=== PATIENT | female | born 1965 | race Caucasian/White ===

== ENCOUNTER 2018-05-30 14:54 | Inpatient (IN) ==
[2018-05-30 17:26] LABS: Baso % (Auto) 0.1 % (0.0-2.0); Eos % (Auto) 0.1 % (0.0-4.0); Hematocrit 32.9 % (35.0-46.0); Lymph # (Auto) 0.9 th/mm3 (1.0-4.8); Lymph % (Auto) 9.2 % (9.0-44.0); Mean Corpuscular Hemoglobin 35.9 pg (27.0-34.0); Mean Corpuscular Volume 98.5 fL (80.0-100.0); Mean Platelet Volume 9.1 fL (7.0-11.0); Mono # (Auto) 0.9 th/mm3 (0.0-0.9); Mono % (Auto) 9.6 % (0.0-8.0); Neut # (Auto) 7.9 th/mm3 (1.8-7.7); Platelet Count 107 th/mm3 (150-450); Red Blood Count 3.34 mil/mm3 (4.00-5.30); Red Cell Distribution Width 14.5 % (11.6-17.2); White Blood Count 9.7 th/mm3 (4.0-11.0)
[2018-05-30 17:32] LABS: Mean Corpuscular HGB Conc 36.5 % (32.0-36.0)
[2018-05-30 17:40] LABS: Activated Partial Thrombo Time 20.4 sec (23.4-31.7); INR 1.1 Ratio; Prothrombin Time 10.7 sec (9.8-11.6)
[2018-05-30 17:44] LABS: Albumin 3.6 g/dL (3.4-5.0); Anion Gap 7 meq/L (5-15); Aspartate Aminotransferase 17 U/L (15-37); Blood Urea Nitrogen 30 mg/dL (7-18); Calcium 8.5 mg/dL (8.5-10.1); Chloride 106 meq/L (98-107); Glomerular Filtration Rate 32 mL/min (>89); Glucose,Random 115 mg/dL (74-106); Potassium 3.4 meq/L (3.5-5.1); Sodium 138 meq/L (136-145)
[2018-05-30 17:45] LABS: Alanine Aminotransferase 34 U/L (10-53)
[2018-05-30 17:47] LABS: Alkaline Phosphatase 85 U/L (45-117); Total Protein 6.9 g/dL (6.4-8.2)
--- NOTE | 2018-05-30 17:52 | ED ---
HPI General Chief complaint: Back Pain/Injury Stated complaint: Back Complaint Time Seen by Provider: 05/30/18 16:47 Source: patient Mode of arrival: ambulatory Limitations: no limitations History of Present Illness HPI narrative: Patient is a 52-year-old female presenting to the emergency department for evaluation of an abnormal MRI. Patient states she had an MRI performed on Wednesday which showed an L1 or L2 compression fracture. Patient reports that she currently has bladder cancer, she was diagnosed in July 2017. She had the tumors removed and initially it was thought that there was no metastasis. A few months later she started experiencing pain and similar symptoms as previous and was told that she had a recurrence of the bladder cancer with metastasis to the spine. She has had 8 out of 10 aching back pain that radiates down her right leg. She states that she was prescribed Percocet 10/325 but she only takes half a tablet because she does not want to get addicted. She denies any bladder or bowel incontinence, no saddle paresthesia, no weakness in her extremities. Symptom onset was gradual, symptoms are moderate. Patient denies any falls, injuries or trauma. She has no other complaints at this time. Onset (ago): month(s) Location: back Radiation: distal Severity: moderate Severity scale (1-10): 8 Quality: aching Pain Consistency: constant Relieving factors: medication Exacerbating factors: immobilization and movement Associated symptoms: Reports denies other symptoms Related Data Home Medications Medication Instructions Recorded Confirmed ciprofloxacin HCl 500 mg PO BID 05/30/18 05/30/18 dexamethasone 4 mg PO Q12H 05/30/18 05/30/18 famotidine 20 mg PO DAILY 05/30/18 05/30/18 oxycodone-acetaminophen 1 tab PO BID 05/30/18 05/30/18 Allergies Allergy/AdvReac Type Severity Reaction Status Date / Time No Known Allergies Allergy Verified 05/30/18 15:06 Review of Systems ROS: all other systems reviewed are negative [facility] Medical History Medical History Bladder cancer (Acute) Cancer of spinal column (Acute) H/O: stroke (Acute) HTN (hypertension) (Acute) Social History Social History Substance History: No History of Abuse Second Hand Smoke Exposure: No Smoking Status: Never smoker How Often Do You Have a Drink Containing Alcohol: Monthly or less Recent Travel in [facility] within the Last 8 Weeks: No Recent Out of Country Travel within the Last 8 Weeks: No Immunization History Tetanus Immunization: >5 Years Exam Narrative Exam Narrative: GENERAL: Well-developed, well-nourished, alert female. Presenting in no acute distress. SKIN: Focused skin assessment warm/dry. HEAD: Atraumatic. Normocephalic. EYES: Pupils equal and round. No scleral icterus. No injection or drainage. ENT: No nasal bleeding or discharge. Mucous membranes pink and moist. NECK: Trachea midline. No JVD. CARDIOVASCULAR: Regular rate and rhythm. No murmur appreciated. RESPIRATORY: No accessory muscle use. Clear to auscultation. Breath sounds equal bilaterally. GASTROINTESTINAL: Abdomen soft, non-tender, nondistended. Hepatic and splenic margins not palpable. MUSCULOSKELETAL: No obvious deformities. No clubbing. No cyanosis. No edema. Tenderness over lumbar spine, no step-off noted. NEUROLOGICAL: Awake and alert. No obvious cranial nerve deficits. Motor grossly within normal limits. Normal speech. PSYCHIATRIC: Appropriate mood and affect; insight and judgment normal. Course Initial Documented Vital Signs Temperature 98.8 F 05/30/18 15:01 Pulse Rate 102 H 05/30/18 15:01 Respiratory Rate 20 05/30/18 15:01 Blood Pressure 198/131 H 05/30/18 15:01 Pulse Oximetry 98 05/30/18 15:01 Last Documented Vital Signs Temperature 98.8 F 05/30/18 15:01 Pulse Rate 71 05/30/18 18:26 Respiratory Rate 18 05/30/18 18:26 Blood Pressure 173/109 H 05/30/18 18:26 Pulse Oximetry 97 05/30/18 18:26 Medical Decision Making MDM Narrative Medical decision making narrative: Patient is a 52-year-old female presenting with back pain secondary to metastatic disease. She has no focal deficits on exam. Will attempt to obtain records from [facility]. Will obtain a CT scan of the lumbar spine as well as basic labs now. Patient was given Percocet for pain. Labs reviewed, BUN and creatinine are elevated, no priors to compare to although patient reports history of renal insufficiency. CT scan of the lumbar spine shows lytic bone destruction of L2 with soft tissue mass, incidentally reported bilateral hydronephrosis with bilateral stent placement and a 5 mm calculus in the right renal pelvis. Discussed fracture with Dr. Ortiz who advised patient be admitted to medicine consult to him. Dr. Pearce accepted admission, urinalysis is ordered and pending. Admit orders placed. Patient was advised on findings and plan of care. Patient is agreeable, she is resting comfortably with her son at bedside. Medical records have been requested from [facility], they have not been obtained at this point. Medical Screen Exam Complete: Yes Emergency Medical Condition: Yes Differential Diagnosis Differential Diagnosis: Pathologic fracture versus increasing tumor burden versus metabolic abnormality versus neurologic deficit versus other Lab Data Lab results reviewed: Yes I reviewed the patient's lab results. Result diagrams: 05/30/18 16:52 05/30/18 16:52 Lab Results 05/30/18 05/30/18 05/30/18 Range/Units 16:52 16:52 16:52 WBC 9.7 (4.0-11.0) th/mm3 RBC 3.34 L (4.00-5.30) mil/mm3 Hgb 12.0 (11.6-15.3) gm/dL Hct 32.9 L (35.0-46.0) % MCV 98.5 (80.0-100.0) fL MCH 35.9 H (27.0-34.0) pg MCHC 36.5 H (32.0-36.0) % RDW 14.5 (11.6-17.2) % Plt Count 107 L (150-450) th/mm3 MPV 9.1 (7.0-11.0) fL Prelim Diff (Auto) Slide review pending Neut % (Auto) 81.0 H (16.0-70.0) % Lymph % (Auto) 9.2 (9.0-44.0) % [place] % (Auto) 9.6 H (0.0-8.0) % Eos % (Auto) 0.1 (0.0-4.0) % Baso % (Auto) 0.1 (0.0-2.0) % Neut # (Auto) 7.9 H (1.8-7.7) th/mm3 Lymph # (Auto) 0.9 L (1.0-4.8) th/mm3 [place] # (Auto) 0.9 (0.0-0.9) th/mm3 Eos # (Auto) 0.0 (0.0-0.4) th/mm3 Baso # (Auto) 0.0 (0.0-0.2) th/mm3 WBC Differential Manual diff final Seg Neuts % (Manual) 50 (16-70) % Band Neuts % (Manual) 16 H (0-6) % Lymphocytes % (Manual) 18 (9-44) % Monocytes % (Manual) 9 H (0-8) % Metamyelocytes % (Man) 4 H (0-1) % Myelocytes % (Man) 3 H (0-0) % Abs Neuts (Manual) 7.1 (1.8-7.7) th/mm3 Nucleated RBCs/100 WBC 2 H (0-0) /100 WBC Differential Comment . Dohle Bodies Present H (None) Platelet Estimate Low L (Normal) Platelet Morphology Normal (Normal) Polychromasia 2.4 H (0.0-1.9) % Tear Drop Cells 1+ H (None) PT 10.7 (9.8-11.6) sec INR 1.1 Ratio APTT 20.4 L (23.4-31.7) sec Sodium 138 (136-145) meq/L Potassium 3.4 L (3.5-5.1) meq/L Chloride 106 (98-107) meq/L Carbon Dioxide 25.0 (21.0-32.0) meq/L Anion Gap 7 (5-15) meq/L BUN 30 H (7-18) mg/dL Creatinine 1.67 H (0.50-1.00) mg/dL Estimated GFR 32 L (>89) mL/min Random Glucose 115 H (74-106) mg/dL Calcium 8.5 (8.5-10.1) mg/dL Total Bilirubin 0.3 (0.2-1.0) mg/dL AST 17 (15-37) U/L ALT 34 (10-53) U/L Alkaline Phosphatase 85 (45-117) U/L Total Protein 6.9 (6.4-8.2) g/dL Albumin 3.6 (3.4-5.0) g/dL Imaging Data Radiologist's impression: Lumbar Spine CT 05/30/18 17:06 CONCLUSION: 1. Extensive lytic bone destruction of L2 with soft tissue mass, spinal stenosis and pathologic fracture as above. Primary differential diagnosis is myeloma versus metastatic disease from reported history of bladder cancer. 2. Moderate degenerative changes as above. Discharge Plan Discharge Disposition Patient Disposition: ED Admit(ED Internal Use Only) Discharge Condition Condition: Stable Discharge Order Discharge Orders: ED Use Only Admit Order (Routine); Ordered 05/30/18 Ordered By: Rowan Guerra Discharge Details Diagnosis: Mass of spine, Bladder cancer, Renal insufficiency, Pathologic compression fracture of lumbar vertebra Physicians Team ED Provider: Brennan Young ED Midlevel Provider: Rowan Guerra Primary Care Provider: UNKNOWN, Rxs /Orders / Referrals /Forms Prescriptions: No Action ciprofloxacin HCl 500 mg Tablet 500 mg PO BID RF: 0 famotidine 20 mg Tablet 20 mg PO DAILY RF: 0 oxycodone-acetaminophen 10-325 mg Tablet 1 tab PO BID RF: 0 dexamethasone 4 mg Tablet 4 mg PO Q12H RF: 0 Status ED Status: Admitted Patient
[2018-05-30 18:00] LABS: Lymphocytes 18 % (9-44); Metamyelocytes 4 % (0-1); Monocytes 9 % (0-8); Myelocytes 3 % (0-0); Tallied Nucleated RBC 2 (0-0)
[2018-05-30 18:01] LABS: Polychromasia 2.4 % (0.0-1.9)
[2018-05-30 18:02] LABS: Dohle Bodies Present
[2018-05-30 18:03] LABS: Platelet Morphology Normal (Normal); Tear Drop Cells 1+
--- NOTE | 2018-05-30 18:16 | CT ---
EXAM DATE: 05/30/2018 6:05 PM EST AGE/SEX: 52 years / Female INDICATIONS: Fractured seen on recent Mri, done at [facility], back pain,L2 tumor. CLINICAL DATA: This is the patient's initial encounter. Patient reports that signs and symptoms have been present for 1 day and indicates a pain score of 6/10. MEDICAL/SURGICAL HISTORY: Carcinoma, bladder. Hypertension. SPINAL COLUMN STROKE mets to l2 None. RADIATION DOSE: 34.36 CTDI (mGy) COMPARISON: No prior exams available for comparison. TECHNIQUE: Contiguous axial images were acquired with a multirow detector CT scanner without contras t. Multiplanar reconstructions in the sagittal and coronal plane were also performed. Using automate d exposure control and adjustment of the mA and/or kV according to patient size, radiation dose was k ept as low as reasonably achievable to obtain optimal diagnostic quality images. DICOM format image data is available electronically for review and comparison. FINDINGS: Incidental note is made of bilateral hydronephrosis with bilateral ureteral stents present. 5 mm calc ulus present in right renal pelvis. There is extensive lytic bone destruction at L2 involving the vertebral body predominantly on the rig ht side extending through the right pedicle to the posterior elements with an associated soft tissue mass that measures up to 4.9 cm in diameter. Differential diagnosis includes myeloma and metastatic d isease. There is suspected severe canal stenosis at this level. There is an associated pathologic com pression fracture through the right posterior aspect of the L2 vertebral body. No other pathologic fractures are identified. At [id number] there is no significant canal or foraminal stenosis. At L2-3 there is a mild disc bulge with mild lateral recess encroachment. At L3-4 there is a broad-based disc bulge without stenosis. At L4-5 there is a posterior disc osteophyte complex and facet arthropathy with mild lateral recess a nd foraminal encroachment bilaterally. At L5-S1 there is a broad-based disc protrusion and facet arthropathy without significant canal steno sis. CONCLUSION: 1. Extensive lytic bone destruction of L2 with soft tissue mass, spinal stenosis and pathologic frac ture as above. Primary differential diagnosis is myeloma versus metastatic disease from reported hist ory of bladder cancer. 2. Moderate degenerative changes as above. Electronically signed by: Polo Menjivar MD 05/30/2018 6:15 PM EST
[2018-05-30] MEDS ORDERED: Acetaminophen 325 MG Tablet PO PRN ×2 (18:58)
[2018-05-30] MEDS ORDERED: Morphine Inj 4 MG/ML Vial IV.PUSH PRN (18:58)
[2018-05-30] MEDS ORDERED: oxyCODONE/Acetaminophen 10/325 Tablet PO PRN (18:58)
[2018-05-30] MEDS ORDERED: Naloxone Inj 0.4 MG/ML Vial IV.PUSH PRN (18:58)
[2018-05-30] MEDS ORDERED: Bisacodyl 10 MG Supp RECTAL PRN (18:58)
[2018-05-30 19:22] LABS: Bacteria,Urine Few /hpf; Bilirubin,Urine Negative (Negative); Clarity,Urine Cloudy (Clear); Color,Urine Red (Yellw/Straw); Glucose,Urine (UA) 50 mg/dL (Negative); Leukocyte Esterase,Urine Negative (Negative); Mucus,Urine Few /lpf (Occasional); Nitrite,Urine Negative (Negative); Specific Gravity,Urine 1.014 (1.002-1.035); Squamous Epithelial Cell,Urine 6 /hpf (0-5)
[2018-05-30] MEDS ORDERED: Ciprofloxacin 500 MG Tablet PO SCH (22:45)
[2018-05-30] MEDS: Senna/Docusate Sodium 8.6/50 MG Tablet PO SCH (22:50)
[2018-05-30] MEDS ORDERED: Famotidine PF Inj 20 MG/2 ML Vial IV.PUSH SCH (23:00)
--- NOTE | 2018-05-30 23:14 | P.HPIM ---
History of Present Illness Service: [facility] . Primary Care Physician: UNKNOWN Chief Complaint: Back Pain History of Present Illness: Mrs. Ayala is a 52 year-old female with a history of left parietal CVA (), bladder cancer diagnosed in July 2017 and followed at [facility] by Dr. Sen, hydronephrosis s/p bilateral stent placement by Dr. Hannah, hypertension, and intermittent GERD who presented to the emergency room complaining of back pain and outpatient MRI demonstrating compression fracture. The patient is seen in her hospital room reports having back pain of 3-4 out of 10 radiating from her back down her anterior right thigh. She states that her pain is worse with immobility. Pain is relieved with Decadron. However, she notices these to emotional lability with Decadron 4 mg and she refuses to take more than 2 mg of decadron. She also complains of reflux with the sensation of feeling like something is "stuck" in the left side of her throat. She reports that this symptom has been present only for about 12 hours. She also complains that a couple of days ago, she had muscle spasm sensation in her legs that seemed to radiate up her chest wall and was relieved with relaxation. She denies any recent fever, chills, or shortness of breath. Inpatient Certification: I certify that the inpatient services were ordered in accordance with Medicare regulations governing the order. This includes certification that hospital inpatient services are reasonable and necessary and in the case of services not specified as inpatient-only under 42 CFR 419.22(n), that they are appropriately provided as inpatient services in accordance to with the 2-midnight benchmark under 43 CFR 412.3(e) Estimated Total Length of Stay (Days): 3 Plans for Post Hospital Care: Not yet determined Review of Systems All other systems reviewed negative except as stated in HPI PMFSH - History History Provided By: Patient - Medical History Medical History: Medical History (Last Updated 05/31/18 @ 02:14 by JORGE L Álvarez) Bladder cancer HTN (hypertension) History of CVA (cerebrovascular accident) Metastasis to spinal column - Surgical History Surgical History: Surgical History (Last Updated 05/31/18 @ 00:50 by JORGE L Álvarez) History of History of biopsy History of cystoscopy Hx of cholecystectomy Status post placement of ureteral stent - Family History Family History: Family History (Last Updated 05/31/18 @ 00:52 by JORGE L Álvarez) Brother Colorectal cancer Sister Colorectal cancer Father Family history of coronary artery disease - Social History I have reviewed the patient's Social History: Yes - Tobacco History Second Hand Smoke Exposure: No Smoking Status: Never smoker - Alcohol History How Often Do You Have a Drink Containing Alcohol: Monthly or less - Substance Use History Substance History: No History of Abuse - Travel History Recent Travel in the [place] Within the Last 8 Weeks: No Recent Travel Out of the Country Within the Last 8 Weeks: No - Immunization History Tetanus Immunization: >5 Years Medications and Allergies Active Medications: Active Medications Acetaminophen (Tylenol) 650 mg PO Q4H PRN PRN Reason: Temp > 100.4 Acetaminophen (Tylenol) 650 mg PO Q6H PRN PRN Reason: PAIN SCALE 1 TO 2 Al Hydroxide/Mg Hydroxide (Milk Of Magnesia Liq) 30 ml PO Q12H PRN PRN Reason: Mild Constipation Bisacodyl (Dulcolax Supp) 10 mg RECTAL DAILY PRN PRN Reason: SEVERE CONSITIPATION Ciprofloxacin HCl (Cipro) 500 mg PO BID AMAIRANI Dexamethasone Sodium Phosphate (Decadron Inj) 2 mg IV.PUSH Q6HR AMAIRANI Famotidine (Pepcid Pf Inj) 20 mg IV.PUSH Q12HR AMAIRANI Lactulose (Lactulose Liq) 30 ml PO DAILY PRN PRN Reason: SEVERE CONSITIPATION Morphine Sulfate (Morphine Inj) 4 mg IV.PUSH Q3H PRN PRN Reason: BREAKTHROUGH PAIN Naloxone HCl (Narcan Inj) 0.4 mg IV.PUSH UNSCH PRN PRN Reason: SEE LABEL COMMENTS Ondansetron HCl (Zofran Inj) 4 mg IV.PUSH Q6H PRN PRN Reason: NAUSEA OR VOMITING Oxycodone/Acetaminophen (Percocet 10/325 Mg) 1 tab PO Q6H PRN PRN Reason: PAIN SCALE 6 TO 10 Oxycodone/Acetaminophen (Percocet 5/325 Mg) 1 tab PO Q6H PRN PRN Reason: PAIN SCALE 3 TO 5 Senna/Docusate Sodium (Corine-Colace) 1 tab PO BID [facility] Last Admin: 05/30/18 22:50 Dose: 1 tab Sennosides (Senokot) 17.2 mg PO Q12H PRN PRN Reason: Moderate Constipation Sodium Chloride (Ns Flush) 2 ml IV.FLUSH BID AMAIRANI Last Admin: 05/30/18 22:50 Dose: 2 ml Sodium Chloride (Ns Flush) 2 ml IV.FLUSH UNSCH PRN PRN Reason: FLUSH AFTER USING IV ACCESS Allergies Allergy/AdvReac Type Severity Reaction Status Date / Time No Known Allergies Allergy Verified 05/30/18 15:06 Home Medications Medication Instructions Recorded Confirmed Type ciprofloxacin HCl 500 mg PO BID 05/30/18 05/30/18 History dexamethasone 4 mg PO Q12H 05/30/18 05/30/18 History famotidine 20 mg PO DAILY 05/30/18 05/30/18 History oxycodone-acetaminophen 1 tab PO BID 05/30/18 05/30/18 History Exam Vital signs: Vital Signs 05/30/18 15:01 05/30/18 16:41 05/30/18 18:26 Temperature 98.8 F Pulse Rate 102 H 86 71 Respiratory Rate 20 20 18 Blood Pressure 198/131 H 162/108 H 173/109 H Pulse Oximetry 98 98 97 05/30/18 19:31 05/30/18 20:00 Temperature 98.2 F Pulse Rate 82 72 Respiratory Rate 18 20 Blood Pressure 158/101 H 156/92 H Pulse Oximetry 100 97 Intake & Output 05/30/18 05/30/18 05/31/18 06:59 18:59 06:59 Weight 90.265 kg Narrative: GENERAL: This is a well-nourished, well-developed patient, in no apparent distress. SKIN: No rashes, ecchymoses or lesions. Cool and dry. HEAD: Atraumatic. Normocephalic. EYES: No scleral icterus. No injection or drainage. ENT: Nose without bleeding, purulent drainage. NECK: Trachea midline. No JVD or lymphadenopathy. CARDIOVASCULAR: Regular rate and rhythm without murmurs, gallops, or rubs. RESPIRATORY: Clear to auscultation. Breath sounds equal bilaterally. No wheezes , rales, or rhonchi. GASTROINTESTINAL: Abdomen soft, non-tender, nondistended. No guarding. MUSCULOSKELETAL: Extremities without clubbing, cyanosis. No calf tenderness. Lumbar paraspinal tenderness with palpation. NEUROLOGICAL: Awake and alert. Motor and sensory grossly within normal limits. Normal speech. . Results - Labs CBC & Chem 7: 05/30/18 16:52 05/30/18 16:52 Labs: Short CBC 05/30/18 Range/Units 16:52 WBC 9.7 (4.0-11.0) th/mm3 Hgb 12.0 (11.6-15.3) gm/dL Hct 32.9 L (35.0-46.0) % Plt Count 107 L (150-450) th/mm3 BMP 05/30/18 16:52 Sodium 138 Potassium 3.4 L Chloride 106 Carbon Dioxide 25.0 BUN 30 H Creatinine 1.67 H Calcium 8.5 Liver Function 05/30/18 Range/Units 16:52 Total Bilirubin 0.3 (0.2-1.0) mg/dL AST 17 (15-37) U/L ALT 34 (10-53) U/L Alkaline Phosphatase 85 (45-117) U/L Albumin 3.6 (3.4-5.0) g/dL Urine 05/30/18 Range/Units 18:37 Urine Color Red (Yellw/Straw) Urine Clarity Cloudy H (Clear) Urine pH 6.0 (5.0-8.5) Ur Specific [place] 1.014 (1.002-1.035) Urine Protein 100 H (Neg-Trace) mg/dL Urine Glucose (UA) 50 (Negative) mg/dL - Imaging Impressions Lumbar Spine CT 05/30/18 17:06 CONCLUSION: 1. Extensive lytic bone destruction of L2 with soft tissue mass, spinal stenosis and pathologic fracture as above. Primary differential diagnosis is myeloma versus metastatic disease from reported history of bladder cancer. 2. Moderate degenerative changes as above. Caprini VTE Risk Assessment Caprini VTE Risk Assessment: Moderate/High Risk (score >= 2) Caprini Risk Assessment Model: Point Value = 1 Point Value = 2 Point Value = 3 Point Value = 5 Age 41-60 Minor surgery BMI > 25 kg/m2 Swollen legs Varicose veins or History of unexplained or recurrent spontaneous Oral contraceptives or hormone replacement Sepsis (< 1 month) Serious lung disease, including pneumonia (< 1 month) Abnormal pulmonary function Acute myocardial infarction Congestive heart failure (< 1 month) History of inflammatory bowel disease Medical patient at bed rest Age 61-74 Arthroscopic surgery Major open surgery (> 45 min) Laparoscopic surgery (> 45 min) Malignancy Confined to bed (> 72 hours) Immobilizing plaster cast Central venous access Age >= 75 History of VTE Family history of VTE Factor V Leiden Prothrombin [id number] Lupus anticoagulant Anticardiolipin antibodies Elevated serum homocysteine Heparin-induced thrombocytopenia Other congenital or acquired thrombophilia Stroke (< 1 month) Elective arthroplasty Hip, pelvis, or leg fracture Acute spinal cord injury (< 1 month) Prophylaxis Regimen: Total Risk Factor Score Risk Level Prophylaxis Regimen 0-1 Low Early ambulation 2 Moderate Order ONE of the following: *Sequential Compression Device (SCD) *Heparin 5000 units SQ BID 3-4 Higher Order ONE of the following medications: *Heparin 5000 units SQ TID *Enoxaparin/Lovenox 40 mg SQ daily (WT < 150 kg, CrCl > 30 mL/min) *Enoxaparin/Lovenox 30 mg SQ daily (WT < 150 kg, CrCl > 10-29 mL/min) *Enoxaparin/Lovenox 30 mg SQ BID (WT < 150 kg, CrCl > 30 mL/min) AND/OR *Sequential Compression Device (SCD) 5 or more Highest Order ONE of the following medications: *Heparin 5000 units SQ TID (Preferred with Epidurals) *Enoxaparin/Lovenox 40 mg SQ daily (WT < 150 kg, CrCl > 30 mL/min) *Enoxaparin/Lovenox 30 mg SQ daily (WT < 150 kg, CrCl > 10-29 mL/min) *Enoxaparin/Lovenox 30 mg SQ BID (WT < 150 kg, CrCl > 30 mL/min) AND *Sequential Compression Device (SCD) Assessment and Plan - Plan Mrs. Ayala is a 52 year-old female with a history of left parietal CVA (), bladder cancer diagnosed in July 2017 and followed at [facility] by Dr. Sen, hydronephrosis s/p bilateral stent placement by Dr. Hannah, hypertension, and intermittent GERD who presented to the emergency room complaining of back pain and outpatient MRI demonstrating compression fracture. Pathologic compression fracture, L2 -MRI at [facility] showed interval increase in size of enhancing destructive metastasis centered within the posterior L2 vertebral body and right pedicle since 04/13/2018 lumbar spine MRI -superimposed newly appearing pathological compression fracture of L2. Posterior bulging of the metastasis and extraosseous disease extension into the ventral and right lateral epidural spaces at L2 contributing to worsened moderate spinal canal stenosis. Effacement of the right subarticular recess with compression of the right L2 nerve root. There was also extraosseous extension of the pathologic soft tissue into the right paravertebral soft tissues at the L2 level with surrounding edema. Pathological soft tissue extends into the L2-L3 neural foramen with associated moderate right neural foraminal stenosis and abutment/ partial compression of the right foraminal L2 nerve root. -Consult neurosurgery-Case discussed by ER provider with Dr. Ortiz -N.p.o. after midnight except for meds -Dexamethasone 2 mg IV every 6 hours (patient refusing 4 mg dosing) -Percocet as needed for pain with morphine IV for breakthrough pain Bladder Cancer - follows with Dr. Sen at [facility] - treated with chemo and radiation x 1 treatment Bilateral hydronephrosis 5 mm calculus and right renal pelvis Bilateral ureteral stents -Consult to urology for evaluation of hydronephrosis despite ureteral stenting -Patient sees Dr. Hannah at [facility] -Urinalysis minimally suggestive of UTI with culture indicated -we will continue patient on Cipro for now -await urine culture and adjust treatment as needed Hypokalemia -Replaced p.o. -Repeat labs in a.m. and follow results-further replace potassium as needed Acute on chronic renal insufficiency- suspect secondary to chemotherapy and/or obstructive uropathy and/or possible UTI- no labs from before 05/30/18 and after 08/10/11 to compare -BUN 30, creatinine 1.67, estimated GFR 32 -NS at 100 cc/hr -Repeat labs in a.m. and follow results Hypertension -Clonidine 0.1 mg every 6 hours as needed systolic blood pressure greater than 160 or diastolic blood pressure greater than 100 of heart rate is greater than 60 -Monitor blood pressure trends and adjust treatments as indicated Thrombocytopenia- likely secondary to recent chemotherapy - platelet count 107,000 - repeat CBC in a.m. follow results DVT prophylaxis -SCDs -chemoprophylaxis not recommended until neurosurgical and urology evaluations are complete secondary to possible surgery Discussed Condition With: Patient, patient's , and Dr. Tomlinson .
[2018-05-31] MEDS ORDERED: Sod Chloride 0.9% Inj 1,000 ML IV.CONT SCH (02:15)
[2018-05-31] MEDS: Famotidine PF Inj 20 MG/2 ML Vial IV.PUSH SCH ×2 (06:20→18:10)
[2018-05-31] MEDS: Sod Chloride 0.9% Inj 1,000 ML IV.CONT SCH ×2 (06:21→16:22)
[2018-05-31] MEDS: Ciprofloxacin 500 MG Tablet PO SCH ×2 (06:21→18:09)
[2018-05-31 07:57] LABS: Baso % (Auto) 0.1 % (0.0-2.0); Eos # (Auto) 0.1 th/mm3 (0.0-0.4); Eos % (Auto) 0.8 % (0.0-4.0); Hematocrit 30.9 % (35.0-46.0); Lymph # (Auto) 1.4 th/mm3 (1.0-4.8); Lymph % (Auto) 16.4 % (9.0-44.0); Mean Corpuscular HGB Conc 35.7 % (32.0-36.0); Mean Corpuscular Hemoglobin 35.1 pg (27.0-34.0); Mean Corpuscular Volume 98.4 fL (80.0-100.0); Mean Platelet Volume 8.9 fL (7.0-11.0); Mono # (Auto) 0.9 th/mm3 (0.0-0.9); Mono % (Auto) 10.9 % (0.0-8.0); Neut % (Auto) 71.8 % (16.0-70.0); Platelet Count 101 th/mm3 (150-450); Red Blood Count 3.14 mil/mm3 (4.00-5.30); Red Cell Distribution Width 14.5 % (11.6-17.2); White Blood Count 8.3 th/mm3 (4.0-11.0)
[2018-05-31 08:28] LABS: Calcium 8.6 mg/dL (8.5-10.1); Carbon Dioxide 23.4 meq/L (21.0-32.0); Potassium 3.8 meq/L (3.5-5.1)
[2018-05-31 08:32] LABS: Eosinophils 2 % (0-4); Lymphocytes 15 % (9-44); Metamyelocytes 1 % (0-1); Monocytes 8 % (0-8); Myelocytes 4 % (0-0)
[2018-05-31 08:33] LABS: Platelet Morphology Normal (Normal); Tear Drop Cells 1+; Toxic Granulation 1+
--- NOTE | 2018-05-31 09:24 | P.CONNS ---
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 Sen, hydronephrosis s/p bilateral stent placement by Dr. Hannah, arterial hypertension, and GERD who presented to the emergency room complaining of back pain and outpatient MRI demonstrating compression fracture. She reports having back pain of 3-4 out of 10 radiating from her back down her anterior right thigh. She states that her pain is worse with mobility. Her pain is relieved with Decadron. However, she notices these to emotional lability with Decadron 4 mg and she refuses to take more than 2 mg of decadron. She also complains of reflux with the sensation of feeling like something is "stuck" in the left side of her throat. She reports that this symptom has been present only for about 12 hours. She also complains that a couple of days ago, she had muscle spasm sensation in her legs that seemed to radiate up her chest wall and was relieved with relaxation. She denies any recent fever, chills, or shortness of breath. CT lumbar spine showed evidence of metastatic disease. neurosurgery consultation has been requested . [facility] - History History Provided By: Patient - Medical History Medical History: Medical History (Last Updated 05/31/18 @ 02:14 by JORGE L Álvarez) Bladder cancer HTN (hypertension) History of CVA (cerebrovascular accident) Metastasis to spinal column - Surgical History Surgical History: Surgical History (Last Updated 05/31/18 @ 00:50 by JORGE L Álvarez) History of History of biopsy History of cystoscopy Hx of cholecystectomy Status post placement of ureteral stent - Family History Family History: Family History (Last Updated 05/31/18 @ 00:52 by JORGE L Álvarez) Brother Colorectal cancer Sister Colorectal cancer Father Family history of coronary artery disease - Tobacco History Second Hand Smoke Exposure: No Tobacco Use In Past 30 Days: No Smoking Status: Former smoker Tobacco Type: Cigarettes - Alcohol History How Often Do You Have a Drink Containing Alcohol: Monthly or less - Substance Use History Substance History: No History of Abuse - Travel History Recent Travel in the [place] Within the Last 8 Weeks: No Recent Travel Out of the Country Within the Last 8 Weeks: No - Immunization History Tetanus Immunization: >5 Years Hx Influenza Vaccine This Season: Yes Medications and Allergies Active Medications: Active Medications Acetaminophen (Tylenol) 650 mg PO Q4H PRN PRN Reason: Temp > 100.4 Acetaminophen (Tylenol) 650 mg PO Q6H PRN PRN Reason: PAIN SCALE 1 TO 2 Al Hydroxide/Mg Hydroxide (Milk Of Magnesia Liq) 30 ml PO Q12H PRN PRN Reason: Mild Constipation Bisacodyl (Dulcolax Supp) 10 mg RECTAL DAILY PRN PRN Reason: SEVERE CONSITIPATION Ciprofloxacin HCl (Cipro) 500 mg PO BID@0600,1800 [facility] Last Admin: 05/31/18 06:21 Dose: 500 mg Clonidine HCl (Catapres) 0.1 mg PO Q6H PRN PRN Reason: SBP>160 and/or DBP>100; HR>60 Dexamethasone Sodium Phosphate (Decadron Inj) 2 mg IV.PUSH Q6H [facility] Last Admin: 05/31/18 06:20 Dose: 2 mg Famotidine (Pepcid Pf Inj) 20 mg IV.PUSH Q12H [facility] Last Admin: 05/31/18 06:20 Dose: 20 mg Sodium Chloride (Ns Inj) 1,000 mls @ 100 mls/hr IV.CONT .Q10H [facility] Last Admin: 05/31/18 06:21 Dose: 100 mls/hr Lactulose (Lactulose Liq) 30 ml PO DAILY PRN PRN Reason: SEVERE CONSITIPATION Morphine Sulfate (Morphine Inj) 4 mg IV.PUSH Q3H PRN PRN Reason: BREAKTHROUGH PAIN Naloxone HCl (Narcan Inj) 0.4 mg IV.PUSH UNSCH PRN PRN Reason: SEE LABEL COMMENTS Ondansetron HCl (Zofran Inj) 4 mg IV.PUSH Q6H PRN PRN Reason: NAUSEA OR VOMITING Oxycodone/Acetaminophen (Percocet 10/325 Mg) 1 tab PO Q6H PRN PRN Reason: PAIN SCALE 6 TO 10 Oxycodone/Acetaminophen (Percocet 5/325 Mg) 1 tab PO Q6H PRN PRN Reason: PAIN SCALE 3 TO 5 Last Admin: 05/31/18 06:26 Dose: 1 tab Senna/Docusate Sodium (Corine-Colace) 1 tab PO BID [facility] Last Admin: 05/30/18 22:50 Dose: 1 tab Sennosides (Senokot) 17.2 mg PO Q12H PRN PRN Reason: Moderate Constipation Sodium Chloride (Ns Flush) 2 ml IV.FLUSH BID [facility] Last Admin: 05/30/18 22:50 Dose: 2 ml Sodium Chloride (Ns Flush) 2 ml IV.FLUSH UNSCH PRN PRN Reason: FLUSH AFTER USING IV ACCESS Allergies Allergy/AdvReac Type Severity Reaction Status Date / Time No Known Allergies Allergy Verified 05/30/18 15:06 Home Medications Medication Instructions Recorded Confirmed Type ciprofloxacin HCl 500 mg PO BID 05/30/18 05/30/18 History dexamethasone 4 mg PO Q12H 05/30/18 05/30/18 History famotidine 20 mg PO DAILY 05/30/18 05/30/18 History oxycodone-acetaminophen 1 tab PO BID 05/30/18 05/30/18 History Exam Vital signs: Vital Signs 05/30/18 15:01 05/30/18 16:41 05/30/18 18:26 Temperature 98.8 F Pulse Rate 102 H 86 71 Respiratory Rate 20 20 18 Blood Pressure 198/131 H 162/108 H 173/109 H Pulse Oximetry 98 98 97 05/30/18 19:31 05/30/18 20:00 05/31/18 00:00 Temperature 98.2 F 98.0 F Pulse Rate 82 72 78 Respiratory Rate 18 20 20 Blood Pressure 158/101 H 156/92 H 148/90 H Pulse Oximetry 100 97 99 05/31/18 04:00 05/31/18 07:37 Temperature 98.4 F 98.4 F Pulse Rate 72 80 Respiratory Rate 20 16 Blood Pressure 164/88 H 141/84 H Pulse Oximetry 97 96 Intake & Output 05/30/18 05/31/18 05/31/18 18:59 06:59 18:59 Output Total 3 / 3 Balance -3 / -3 Weight 90.265 kg 0 g Output: Urine 3 / 3 Narrative: The patient is alert, awake. Comfortable, in no acute distress. Speech is fluent. Cranial nerve examination: pupils to be equal, round and reactive to light. Extra-ocular movements are intact. Facial motor and sensory function are normal and symmetrical. Gross hearing appears intact. Sternocleidomastoid and trapezius muscles are symmetrical. Other cranial nerves are intact. Neck is soft and supple with a good range of motion without pain. Muscle strength is normal in all muscle groups of both upper extremities. Lower extremities there is give away due to pain, 3/5 right iliopsoas with 4/5 on the left side, 4+/5 tibialis anterior and extensor halicus longus, 5/5 plantar flexion Sensory examination is intact to light touch and pin prick in both upper extremities, decreased in a L3, L4, L5 right dermatomal distribution Deep tendon reflexes are symmetrical in both upper and lower extremities. There is a bilateral plantar flexion response. Cerebellar examination is unremarkable, without deficits. Lungs are clear Heart regular rhythm is regular rate Skin warm and dry Results - Laboratory Findings CBC and BMP: 06/03/18 21:28 06/03/18 21:28 Abnormal lab findings: Abnormal Labs 05/30/18 05/30/18 05/30/18 16:52 16:52 16:52 RBC 3.34 L Hgb Hct 32.9 L MCH 35.9 H MCHC 36.5 H Plt Count 107 L Neut % (Auto) 81.0 H [place] % (Auto) 9.6 H Neut # (Auto) 7.9 H Lymph # (Auto) 0.9 L Band Neuts % (Manual) 16 H Monocytes % (Manual) 9 H Metamyelocytes % (Man) 4 H Myelocytes % (Man) 3 H Nucleated RBCs/100 WBC 2 H Toxic Granulation Dohle Bodies Present H Platelet Estimate Low L Polychromasia 2.4 H Tear Drop Cells 1+ H APTT 20.4 L Potassium 3.4 L BUN 30 H Creatinine 1.67 H Estimated GFR 32 L Random Glucose 115 H Urine Clarity Urine Protein Urine Occult Blood Urine Bacteria Urine Mucus 05/30/18 05/31/18 05/31/18 18:37 07:36 07:36 RBC 3.14 L Hgb 11.0 L Hct 30.9 L MCH 35.1 H MCHC Plt Count 101 L Neut % (Auto) 71.8 H [place] % (Auto) 10.9 H Neut # (Auto) Lymph # (Auto) Band Neuts % (Manual) 21 H Monocytes % (Manual) Metamyelocytes % (Man) Myelocytes % (Man) 4 H Nucleated RBCs/100 WBC Toxic Granulation 1+ H Dohle Bodies Platelet Estimate Low L Polychromasia 2.0 H Tear Drop Cells 1+ H APTT Potassium BUN 35 H Creatinine 1.44 H Estimated GFR 39 L Random Glucose Urine Clarity Cloudy H Urine Protein 100 H Urine Occult Blood Large H Urine Bacteria Few H Urine Mucus Few H Assessment and Plan - Plan I have reviewed the clinical and radiological findings Lumbar Spine CT 05/30/18 17:06 CONCLUSION: 1. Extensive lytic bone destruction of L2 with soft tissue mass, spinal stenosis and pathologic fracture as above. Primary differential diagnosis is myeloma versus metastatic disease from reported history of bladder cancer. 2. Moderate degenerative changes as above. Pathologic compression fracture, L2. recommend MRI lumbar spine Bladder Cancer - follows with Dr. Sen at [facility] - treated with chemo and radiation treatment Bilateral hydronephrosis 5 mm calculus and right renal pelvis Bilateral ureteral stents Consult to urology for evaluation of hydronephrosis despite ureteral stenting Urinalysis minimally suggestive of UTI with culture indicated -we will continue patient on Cipro for now -await urine culture and adjust treatment as needed Hypokalemia -Replaced -Repeat labs in a.m. and follow results-further replace potassium as needed Acute on chronic renal insufficiency- suspect secondary to chemotherapy and/or obstructive uropathy and/or possible UTI- no labs from before 05/30/18 and after 08/10/11 to compare -BUN 30, creatinine 1.67, estimated GFR 32 -NS at 100 cc/hr -Repeat labs in a.m. and follow results Hypertension -Clonidine 0.1 mg every 6 hours as needed systolic blood pressure greater than 160 or diastolic blood pressure greater than 100 of heart rate is greater than 60 -Monitor blood pressure trends and adjust treatments as indicated Thrombocytopenia- likely secondary to recent chemotherapy - platelet count 107,000 - repeat CBC in a.m. follow results Pulmonary: aggressive pulmonary toilette, nasotracheal suction, and breathing treatments with nebulizers. PT and OT Renal: Continue to monitor closely urine output, BUN and creatinine Endocrine: Monitor serial Acu checks and SSI as needed in detail ID Abx for UTI Protonix for stress ulcer prophylaxis Rajesh hose and SCD's for DVT prophylaxis Point Value = 1 Point Value = 2 Point Value = 3 Point Value = 5 Age 41-60 Minor surgery BMI > 25 kg/m2 Swollen legs Varicose veins or History of unexplained or recurrent spontaneous Oral contraceptives or hormone replacement Sepsis (< 1 month) Serious lung disease, including pneumonia (< 1 month) Abnormal pulmonary function Acute myocardial infarction Congestive heart failure (< 1 month) History of inflammatory bowel disease Medical patient at bed rest Age 61-74 Arthroscopic surgery Major open surgery (> 45 min) Laparoscopic surgery (> 45 min) Malignancy Confined to bed (> 72 hours) Immobilizing plaster cast Central venous access Age >= 75 History of VTE Family history of VTE Factor V Leiden Prothrombin [id number] Lupus anticoagulant Anticardiolipin antibodies Elevated serum homocysteine Heparin-induced thrombocytopenia Other congenital or acquired thrombophilia Stroke (< 1 month) Elective arthroplasty Hip, pelvis, or leg fracture Acute spinal cord injury (< 1 month) Prophylaxis Regimen: Total Risk Factor Score Risk Level Prophylaxis Regimen 0-1 Low Early ambulation 2 Moderate Order ONE of the following: *Sequential Compression Device (SCD) *Heparin 5000 units SQ BID 3-4 Higher Order ONE of the following medications: *Heparin 5000 units SQ TID *Enoxaparin/Lovenox 40 mg SQ daily (WT < 150 kg, CrCl > 30 mL/min) *Enoxaparin/Lovenox 30 mg SQ daily (WT < 150 kg, CrCl > 10-29 mL/min) *Enoxaparin/Lovenox 30 mg SQ BID (WT < 150 kg, CrCl > 30 mL/min) AND/OR *Sequential Compression Device (SCD) 5 or more Highest Order ONE of the following medications: *Heparin 5000 units SQ TID (Preferred with Epidurals) *Enoxaparin/Lovenox 40 mg SQ daily (WT < 150 kg, CrCl > 30 mL/min) *Enoxaparin/Lovenox 30 mg SQ daily (WT < 150 kg, CrCl > 10-29 mL/min) *Enoxaparin/Lovenox 30 mg SQ BID (WT < 150 kg, CrCl > 30 mL/min) AND *Sequential Compression Device (SCD)
[2018-05-31] MEDS: Senna/Docusate Sodium 8.6/50 MG Tablet PO SCH ×2 (09:59→22:26)
--- NOTE | 2018-05-31 15:06 | P.PNIM ---
Subjective Interval history: Follow-up for bladder cancer, bilateral hydronephrosis metastasis to lumbar spine with pathologic compression fracture and L2, HPI, hypertension, hypokalemia and thrombocytopenia. Patient seen and examined laying in bed, stated pain controlled by pain medication stated as long she takes pain medication 6 AM and 6 PM her pain is controlled, as long as she do not move around. Patient denies any falling or trauma. Patient denies any headache or dizziness, denies any chest pain or shortness of breath, denies any abdominal pain, nausea, vomiting, diarrhea or constipation. Patient denies any dysuria or polyuria or dysuria however patient admits that she had blood in her urine however the urologist stated to her that it is normal for her bladder cancer. Patient denies any fever or chills Physical Exam Vital signs: Vital Signs 05/30/18 15:01 05/30/18 16:41 05/30/18 18:26 Temperature 98.8 F Pulse Rate 102 H 86 71 Respiratory Rate 20 20 18 Blood Pressure 198/131 H 162/108 H 173/109 H Pulse Oximetry 98 98 97 05/30/18 19:31 05/30/18 20:00 05/31/18 00:00 Temperature 98.2 F 98.0 F Pulse Rate 82 72 78 Respiratory Rate 18 20 20 Blood Pressure 158/101 H 156/92 H 148/90 H Pulse Oximetry 100 97 99 05/31/18 04:00 05/31/18 07:37 05/31/18 12:35 Temperature 98.4 F 98.4 F 98.1 F Pulse Rate 72 80 73 Respiratory Rate 20 16 15 Blood Pressure 164/88 H 141/84 H 151/92 H Pulse Oximetry 97 96 98 Intake & Output 05/30/18 05/31/18 05/31/18 18:59 06:59 18:59 Output Total 3 / 3 Balance -3 / -3 Weight 90.265 kg 0 g Output: Urine 3 / 3 Narrative: GENERAL: Well-developed, well-nourished, young looking female in no apparent distress SKIN: Warm and dry. HEAD: Atraumatic. Normocephalic. EYES: Pupils equal and round. No scleral icterus. No injection or drainage. ENT: No nasal bleeding or discharge. Mucous membranes pink and moist. NECK: Trachea midline. No JVD. CARDIOVASCULAR: Regular rate and rhythm. RESPIRATORY: No accessory muscle use. Clear to auscultation. Breath sounds equal bilaterally. GASTROINTESTINAL: Abdomen soft, non-tender, nondistended. Hepatic and splenic margins not palpable. MUSCULOSKELETAL: Extremities without clubbing, cyanosis, or edema. Lumbar paraspinal tenderness with palpation NEUROLOGICAL: Awake and alert and oriented x3. No obvious cranial nerve deficits. Motor grossly within normal limits. Generalized weakness moving all 4 extremities. Normal speech. PSYCHIATRIC: Appropriate mood and affect; insight and judgment normal. Results - Labs CBC & Chem 7: 05/31/18 07:36 05/31/18 07:36 Laboratory Results - last 24 hr 05/30/18 05/30/18 05/30/18 16:52 16:52 16:52 WBC 9.7 RBC 3.34 L Hgb 12.0 Hct 32.9 L MCV 98.5 MCH 35.9 H MCHC 36.5 H RDW 14.5 Plt Count 107 L MPV 9.1 Prelim Diff (Auto) Slide review pending Neut % (Auto) 81.0 H Lymph % (Auto) 9.2 [place] % (Auto) 9.6 H Eos % (Auto) 0.1 Baso % (Auto) 0.1 Neut # (Auto) 7.9 H Lymph # (Auto) 0.9 L [place] # (Auto) 0.9 Eos # (Auto) 0.0 Baso # (Auto) 0.0 WBC Differential Manual diff final Seg Neuts % (Manual) 50 Band Neuts % (Manual) 16 H Lymphocytes % (Manual) 18 Monocytes % (Manual) 9 H Eosinophils % (Manual) Metamyelocytes % (Man) 4 H Myelocytes % (Man) 3 H Abs Neuts (Manual) 7.1 Nucleated RBCs/100 WBC 2 H Differential Comment . Toxic Granulation Dohle Bodies Present H Platelet Estimate Low L Platelet Morphology Normal Polychromasia 2.4 H Tear Drop Cells 1+ H PT 10.7 INR 1.1 APTT 20.4 L Sodium 138 Potassium 3.4 L Chloride 106 Carbon Dioxide 25.0 Anion Gap 7 BUN 30 H Creatinine 1.67 H Estimated GFR 32 L Random Glucose 115 H Calcium 8.5 Total Bilirubin 0.3 AST 17 ALT 34 Alkaline Phosphatase 85 Total Protein 6.9 Albumin 3.6 Urine Color Urine Clarity Urine pH Ur Specific [place] Urine Protein Urine Glucose (UA) Urine Ketones Urine Occult Blood Urine Nitrate Urine Bilirubin Urine Urobilinogen Ur Leukocyte Esterase Urine RBC Urine WBC Ur Squamous Epith Cells Urine Bacteria Urine Mucus Micro UA Comment Ur Microscopic Review Urine Culture Comments 05/30/18 05/31/18 05/31/18 18:37 07:36 07:36 WBC 8.3 RBC 3.14 L Hgb 11.0 L Hct 30.9 L MCV 98.4 MCH 35.1 H MCHC 35.7 RDW 14.5 Plt Count 101 L MPV 8.9 Prelim Diff (Auto) Slide review pending Neut % (Auto) 71.8 H Lymph % (Auto) 16.4 [place] % (Auto) 10.9 H Eos % (Auto) 0.8 Baso % (Auto) 0.1 Neut # (Auto) 6.0 Lymph # (Auto) 1.4 [place] # (Auto) 0.9 Eos # (Auto) 0.1 Baso # (Auto) 0.0 WBC Differential Manual diff final Seg Neuts % (Manual) 49 Band Neuts % (Manual) 21 H Lymphocytes % (Manual) 15 Monocytes % (Manual) 8 Eosinophils % (Manual) 2 Metamyelocytes % (Man) 1 Myelocytes % (Man) 4 H Abs Neuts (Manual) 6.2 Nucleated RBCs/100 WBC Differential Comment . Toxic Granulation 1+ H Dohle Bodies Platelet Estimate Low L Platelet Morphology Normal Polychromasia 2.0 H Tear Drop Cells 1+ H PT INR APTT Sodium 138 Potassium 3.8 Chloride 106 Carbon Dioxide 23.4 Anion Gap 9 BUN 35 H Creatinine 1.44 H Estimated GFR 39 L Random Glucose 84 Calcium 8.6 Total Bilirubin AST ALT Alkaline Phosphatase Total Protein Albumin Urine Color Red Urine Clarity Cloudy H Urine pH 6.0 Ur Specific [place] 1.014 Urine Protein 100 H Urine Glucose (UA) 50 Urine Ketones Negative Urine Occult Blood Large H Urine Nitrate Negative Urine Bilirubin Negative Urine Urobilinogen Less than 2 Ur Leukocyte Esterase Negative Urine RBC Urine WBC Ur Squamous Epith Cells 6 Urine Bacteria Few H Urine Mucus Few H Micro UA Comment Culture indicated Ur Microscopic Review Not Reportable Urine Culture Comments Culture indicated Microbiology 05/30/18 18:37 Clean Catch Urine Urine Culture - Preliminary Immature growth - reincubate - Imaging Impressions Lumbar Spine CT 05/30/18 17:06 CONCLUSION: 1. Extensive lytic bone destruction of L2 with soft tissue mass, spinal stenosis and pathologic fracture as above. Primary differential diagnosis is myeloma versus metastatic disease from reported history of bladder cancer. 2. Moderate degenerative changes as above. Assessment and Plan - Assessment (1) Mass of spine Code(s): M89.9 - Disorder of bone, unspecified Status: Acute (2) Bladder cancer Code(s): C67.9 - Malignant neoplasm of bladder, unspecified Status: Acute (3) Renal insufficiency Code(s): N28.9 - Disorder of kidney and ureter, unspecified Status: Acute (4) Pathologic compression fracture of lumbar vertebra Code(s): M48.56XA - Collapsed vertebra, not elsewhere classified, lumbar region , initial encounter for fracture Status: Acute - Plan This is a 52 years-old female with a history of left parietal CVA (10/06), bladder cancer diagnosed in July 2017 and followed at [facility] by Dr. Sen, hydronephrosis s/p bilateral stent placement by Dr. Hannah, hypertension, and intermittent GERD who presented to the emergency room complaining of back pain and outpatient MRI demonstrating compression fracture. Bladder cancer with possible metastasis to spinal column Pathologic compression fracture, L2 Myeloma vs Metastatic Disease -MRI at [facility] showed interval increase in size of enhancing destructive metastasis centered within the posterior L2 vertebral body and right pedicle since 04/13/2018 lumbar spine MRI -superimposed newly appearing pathological compression fracture of L2. Posterior bulging of the metastasis and extraosseous disease extension into the ventral and right lateral epidural spaces at L2 contributing to worsened moderate spinal canal stenosis. Effacement of the right subarticular recess with compression of the right L2 nerve root. There was also extraosseous extension of the pathologic soft tissue into the right paravertebral soft tissues at the L2 level with surrounding edema. Pathological soft tissue extends into the L2-L3 neural foramen with associated moderate right neural foraminal stenosis and abutment/ partial compression of the right foraminal L2 nerve root. -Consult neurosurgery-Case discussed by ER provider with Dr. Ortiz -N.p.o. after midnight except for meds -Dexamethasone 2 mg IV every 6 hours (patient refusing 4 mg dosing) -Percocet as needed for pain with morphine IV for breakthrough pain Bladder Cancer Bilateral hydronephrosis 5 mm calculus and right renal pelvis Bilateral ureteral stents Bacteuria - follows with Dr. Sen at [facility] - treated with chemo and radiation x 1 treatment -Consult to urology for evaluation of hydronephrosis despite ureteral stenting -Patient sees Dr. Hannah at [facility] -Urinalysis minimally suggestive of UTI with culture indicated, awaiting results - continue on Cipro -awaiting urine culture and adjust treatment as needed Acute on chronic renal insufficiency Hypokalemia -Likely secondary to chemotherapy and/or obstructive uropathy and/or possible UTI no labs from before 05/30/18 and after 08/10/11 to compare -BUN 30, creatinine 1.67, estimated GFR 32 -Continue NS at 100 cc/hr -Follow renal indicis -Avoid nephrotoxic agents -Replaced KCL p.o. -Repeat labs in a.m. and follow results-further replace potassium as needed Hypertension Uncontrolled, blood pressure elevated -Continue clonidine 0.1 mg every 6 hours as needed systolic blood pressure>160 or diastolic blood pressure >100 -Start on metoprolol, adjust dose as needed -Monitor blood pressure trends and adjust treatments as indicated Thrombocytopenia- likely secondary to recent chemotherapy - platelet count 101,000 - repeat CBC, follow results DVT prophylaxis -SCDs -chemoprophylaxis not recommended until neurosurgical and urology evaluations are complete secondary to possible surgery Code Status: full code Discussed Condition With: patient and nurse Discharge Planning: Plan for discharge when cleared with Neurosurgeon and Urology (2) Bladder cancer Qualifiers: Bladder location: unspecified site Qualified Code(s): C67.9 - Malignant neoplasm of bladder, unspecified (4) Pathologic compression fracture of lumbar vertebra Qualifiers: Encounter type: initial encounter Qualified Code(s): M48.56XA - Collapsed vertebra, not elsewhere classified, lumbar region, initial encounter for fracture
--- NOTE | 2018-05-31 16:37 | P.CONURO ---
History of Present Illness Service: Urology Consult date: 05/31/18 Requesting Physician: Ophelia Mcleod Reason for Consult: hydronephrosis with stents, h/o metastatic bladder cancer Primary Care Provider: UNKNOWN Chief Complaint: Back Pain History of Present Illness: 52y.o F who had hematuria with clots in JuneJuly 2017, saw Dr Hannah a urologist at [facility] who diagnosed her with large bladder tumope and resected it in july, as per pt pathology was c/w with not muscle invasive tumor and due to her issues with insurance she did not have mets work up at that time. She return with hematuria to Dr Hannah in and had recurrent bladder mass which was also obstructing her kidneys R>L and has b/l nephrostomies placed, then had TURBT and her PCNs were internalized in March. Her Pathology at that time showed muscle invasive bladder tumor and she was referred to oncologist Dr Sen, for further evaluation, she also found a lesion and her spine which was a metastatic lesion from bladder cancer based on biopsy. She had 10 sessions of radiation and 2 sessions of chemo recently but could not tolerate chemo because it was interfering with her kidney function. She is admitted now due to compression fx of L2 caused by that metastatic lesion. Based on her Ct L spine she has some degree of hydro with stents in place. Cr is 1.44 now was 1.6 on admission. She admits hematuria on/ off since March, can be related to stents or bladder cancer. She denies flank pain. no voiding changes. Review of Systems All other systems reviewed negative except as stated in HPI PMFSH - History History Provided By: Patient - Medical History Medical History: Medical History (Last Updated 05/31/18 @ 02:14 by JORGE L Álvarez) Bladder cancer HTN (hypertension) History of CVA (cerebrovascular accident) Metastasis to spinal column - Surgical History Surgical History: Surgical History (Last Updated 05/31/18 @ 00:50 by JORGE L Álvarez) History of History of biopsy History of cystoscopy Hx of cholecystectomy Status post placement of ureteral stent - Family History Family History: Family History (Last Updated 05/31/18 @ 00:52 by JORGE L Álvarez) Brother Colorectal cancer Sister Colorectal cancer Father Family history of coronary artery disease - Tobacco History Second Hand Smoke Exposure: No Tobacco Use In Past 30 Days: No Smoking Status: Former smoker Tobacco Type: Cigarettes - Alcohol History How Often Do You Have a Drink Containing Alcohol: Monthly or less - Substance Use History Substance History: No History of Abuse - Travel History Recent Travel in the [place] Within the Last 8 Weeks: No Recent Travel Out of the Country Within the Last 8 Weeks: No - Immunization History Tetanus Immunization: >5 Years Hx Influenza Vaccine This Season: Yes Medications and Allergies Active Medications: Active Medications Acetaminophen (Tylenol) 650 mg PO Q4H PRN PRN Reason: Temp > 100.4 Acetaminophen (Tylenol) 650 mg PO Q6H PRN PRN Reason: PAIN SCALE 1 TO 2 Al Hydroxide/Mg Hydroxide (Milk Of Magnesia Liq) 30 ml PO Q12H PRN PRN Reason: Mild Constipation Bisacodyl (Dulcolax Supp) 10 mg RECTAL DAILY PRN PRN Reason: SEVERE CONSITIPATION Ciprofloxacin HCl (Cipro) 500 mg PO BID@0600,1800 [facility] Last Admin: 05/31/18 06:21 Dose: 500 mg Clonidine HCl (Catapres) 0.1 mg PO Q6H PRN PRN Reason: SBP>160 and/or DBP>100; HR>60 Dexamethasone Sodium Phosphate (Decadron Inj) 2 mg IV.PUSH Q6H [facility] Last Admin: 05/31/18 12:17 Dose: Not Given Famotidine (Pepcid Pf Inj) 20 mg IV.PUSH Q12H [facility] Last Admin: 05/31/18 06:20 Dose: 20 mg Sodium Chloride (Ns Inj) 1,000 mls @ 100 mls/hr IV.CONT .Q10H [facility] Last Admin: 05/31/18 06:21 Dose: 100 mls/hr Lactulose (Lactulose Liq) 30 ml PO DAILY PRN PRN Reason: SEVERE CONSITIPATION Metoprolol Tartrate (Lopressor) 25 mg PO BID [facility] Morphine Sulfate (Morphine Inj) 4 mg IV.PUSH Q3H PRN PRN Reason: BREAKTHROUGH PAIN Naloxone HCl (Narcan Inj) 0.4 mg IV.PUSH UNSCH PRN PRN Reason: SEE LABEL COMMENTS Ondansetron HCl (Zofran Inj) 4 mg IV.PUSH Q6H PRN PRN Reason: NAUSEA OR VOMITING Oxycodone/Acetaminophen (Percocet 10/325 Mg) 1 tab PO Q6H PRN PRN Reason: PAIN SCALE 6 TO 10 Oxycodone/Acetaminophen (Percocet 5/325 Mg) 1 tab PO Q6H PRN PRN Reason: PAIN SCALE 3 TO 5 Last Admin: 05/31/18 06:26 Dose: 1 tab Senna/Docusate Sodium (Corine-Colace) 1 tab PO BID [facility] Last Admin: 05/31/18 09:59 Dose: Not Given Sennosides (Senokot) 17.2 mg PO Q12H PRN PRN Reason: Moderate Constipation Sodium Chloride (Ns Flush) 2 ml IV.FLUSH BID [facility] Last Admin: 05/31/18 09:54 Dose: Not Given Sodium Chloride (Ns Flush) 2 ml IV.FLUSH UNSCH PRN PRN Reason: FLUSH AFTER USING IV ACCESS Allergies Allergy/AdvReac Type Severity Reaction Status Date / Time No Known Allergies Allergy Verified 05/30/18 15:06 Home Medications Medication Instructions Recorded Confirmed Type ciprofloxacin HCl 500 mg PO BID 05/30/18 05/30/18 History dexamethasone 4 mg PO Q12H 05/30/18 05/30/18 History famotidine 20 mg PO DAILY 05/30/18 05/30/18 History oxycodone-acetaminophen 1 tab PO BID 05/30/18 05/30/18 History Physical Exam Vital Signs - 24 hr 05/30/18 16:41 05/30/18 18:26 05/30/18 19:31 Temperature Pulse Rate 86 71 82 Respiratory Rate 20 18 18 Blood Pressure 162/108 H 173/109 H 158/101 H Pulse Oximetry 98 97 100 05/30/18 20:00 05/31/18 00:00 05/31/18 04:00 Temperature 98.2 F 98.0 F 98.4 F Pulse Rate 72 78 72 Respiratory Rate 20 20 20 Blood Pressure 156/92 H 148/90 H 164/88 H Pulse Oximetry 97 99 97 05/31/18 07:37 05/31/18 12:35 05/31/18 15:35 Temperature 98.4 F 98.1 F 98.5 F Pulse Rate 80 73 71 Respiratory Rate 16 15 20 Blood Pressure 141/84 H 151/92 H 158/97 H Pulse Oximetry 96 98 98 Physical Exam: GENERAL: This is a well-nourished, well-developed patient, in no apparent distress. SKIN: No rashes, ecchymoses or lesions. Cool and dry. HEAD: Atraumatic. Normocephalic. CARDIOVASCULAR: Regular rate and rhythm without murmurs, gallops, or rubs. RESPIRATORY: Clear to auscultation. Breath sounds equal bilaterally. No wheezes , rales, or rhonchi. GASTROINTESTINAL: Abdomen soft, non-tender, nondistended. . GENITOURINARY: No CVAT MUSCULOSKELETAL: Extremities without clubbing, cyanosis, or edema. NEUROLOGICAL: Awake and alert. Laboratory Results - last 24 hr 05/30/18 05/30/18 05/30/18 16:52 16:52 16:52 WBC 9.7 RBC 3.34 L Hgb 12.0 Hct 32.9 L MCV 98.5 MCH 35.9 H MCHC 36.5 H RDW 14.5 Plt Count 107 L MPV 9.1 Prelim Diff (Auto) Slide review pending Neut % (Auto) 81.0 H Lymph % (Auto) 9.2 [place] % (Auto) 9.6 H Eos % (Auto) 0.1 Baso % (Auto) 0.1 Neut # (Auto) 7.9 H Lymph # (Auto) 0.9 L [place] # (Auto) 0.9 Eos # (Auto) 0.0 Baso # (Auto) 0.0 WBC Differential Manual diff final Seg Neuts % (Manual) 50 Band Neuts % (Manual) 16 H Lymphocytes % (Manual) 18 Monocytes % (Manual) 9 H Eosinophils % (Manual) Metamyelocytes % (Man) 4 H Myelocytes % (Man) 3 H Abs Neuts (Manual) 7.1 Nucleated RBCs/100 WBC 2 H Differential Comment . Toxic Granulation Dohle Bodies Present H Platelet Estimate Low L Platelet Morphology Normal Polychromasia 2.4 H Tear Drop Cells 1+ H PT 10.7 INR 1.1 APTT 20.4 L Sodium 138 Potassium 3.4 L Chloride 106 Carbon Dioxide 25.0 Anion Gap 7 BUN 30 H Creatinine 1.67 H Estimated GFR 32 L Random Glucose 115 H Calcium 8.5 Total Bilirubin 0.3 AST 17 ALT 34 Alkaline Phosphatase 85 Total Protein 6.9 Albumin 3.6 Urine Color Urine Clarity Urine pH Ur Specific [place] Urine Protein Urine Glucose (UA) Urine Ketones Urine Occult Blood Urine Nitrate Urine Bilirubin Urine Urobilinogen Ur Leukocyte Esterase Urine RBC Urine WBC Ur Squamous Epith Cells Urine Bacteria Urine Mucus Micro UA Comment Ur Microscopic Review Urine Culture Comments 05/30/18 05/31/18 05/31/18 18:37 07:36 07:36 WBC 8.3 RBC 3.14 L Hgb 11.0 L Hct 30.9 L MCV 98.4 MCH 35.1 H MCHC 35.7 RDW 14.5 Plt Count 101 L MPV 8.9 Prelim Diff (Auto) Slide review pending Neut % (Auto) 71.8 H Lymph % (Auto) 16.4 [place] % (Auto) 10.9 H Eos % (Auto) 0.8 Baso % (Auto) 0.1 Neut # (Auto) 6.0 Lymph # (Auto) 1.4 [place] # (Auto) 0.9 Eos # (Auto) 0.1 Baso # (Auto) 0.0 WBC Differential Manual diff final Seg Neuts % (Manual) 49 Band Neuts % (Manual) 21 H Lymphocytes % (Manual) 15 Monocytes % (Manual) 8 Eosinophils % (Manual) 2 Metamyelocytes % (Man) 1 Myelocytes % (Man) 4 H Abs Neuts (Manual) 6.2 Nucleated RBCs/100 WBC Differential Comment . Toxic Granulation 1+ H Dohle Bodies Platelet Estimate Low L Platelet Morphology Normal Polychromasia 2.0 H Tear Drop Cells 1+ H PT INR APTT Sodium 138 Potassium 3.8 Chloride 106 Carbon Dioxide 23.4 Anion Gap 9 BUN 35 H Creatinine 1.44 H Estimated GFR 39 L Random Glucose 84 Calcium 8.6 Total Bilirubin AST ALT Alkaline Phosphatase Total Protein Albumin Urine Color Red Urine Clarity Cloudy H Urine pH 6.0 Ur Specific [place] 1.014 Urine Protein 100 H Urine Glucose (UA) 50 Urine Ketones Negative Urine Occult Blood Large H Urine Nitrate Negative Urine Bilirubin Negative Urine Urobilinogen Less than 2 Ur Leukocyte Esterase Negative Urine RBC Urine WBC Ur Squamous Epith Cells 6 Urine Bacteria Few H Urine Mucus Few H Micro UA Comment Culture indicated Ur Microscopic Review Not Reportable Urine Culture Comments Culture indicated Microbiology 05/30/18 18:37 Urine Culture - Preliminary Clean Catch Urine Immature growth - reincubate Result Diagrams: 05/31/18 07:36 05/31/18 07:36 Imaging: ITS Impressions Lumbar Spine CT 05/30/18 17:06 CONCLUSION: 1. Extensive lytic bone destruction of L2 with soft tissue mass, spinal stenosis and pathologic fracture as above. Primary differential diagnosis is myeloma versus metastatic disease from reported history of bladder cancer. 2. Moderate degenerative changes as above. Assessment and Plan - Plan 52y.o f with metastatic bladder cancer Admitted due to L2 compression Fx Has b/l stents and some hydro on CT L spine - Continue current management as per primary team and neurosurgery - No acute intervention needed - Needs oncology service to be involved. may need to start treatment with them - Renal US to evaluate degree of obstruction/hydro Since she is asymptomatic urologywise and if hydro is mild, no additional intervention needed If has moderate to severe hydro or her cr is getting worse will need B/l PCN placement She needs to f/u with Dr Hannah as an outpt after d/c Discussed Condition With: Dr Niels ERNST attending and primary team
--- NOTE | 2018-05-31 21:55 | US ---
EXAM DATE: 05/31/2018 9:49 PM EST AGE/SEX: 52 years / Female INDICATIONS: Increased lab values and prior abnormal imaging. CLINICAL DATA: This is the patient's initial encounter. Patient reports that signs and symptoms have been present for 1 day and indicates a pain score of 0/10. MEDICAL/SURGICAL HISTORY: Carcinoma, bladder. Hypertension. Cerebrovascular accident. Metastas is to the spinal column. section. Cholecystectomy. Spinal lesion biopsy. Cystoscopy. Urete ral stent. COMPARISON: [facility], PET/CT TUMOR, 05/17/2018. . MEASUREMENTS: Right Kidney:__8.9 x 6.0 x 5.8 cm Left Kidney:__10.7 x 6.5 x 7.3 cm FINDINGS: Right Kidney: Moderate to severe hydronephrosis. Left Kidney: Moderate hydronephrosis Bladder: Distended urinary bladder with bladder wall thickening. Other: None. CONCLUSION: 1. Bilateral hydronephrosis, greater on the right. 2. Distended urinary bladder with wall thickening. Electronically signed by: Trevor Forte MD 05/31/2018 9:54 PM EST
[2018-05-31] MEDS: Metoprolol Tartrate 25 MG Tablet PO SCH (22:26)
[2018-06-01] MEDS: Sod Chloride 0.9% Inj 1,000 ML IV.CONT SCH ×3 (05:56→22:50)
[2018-06-01] MEDS: Ciprofloxacin 500 MG Tablet PO SCH ×2 (05:59→18:09)
[2018-06-01] MEDS: Famotidine PF Inj 20 MG/2 ML Vial IV.PUSH SCH ×2 (05:59→22:52)
[2018-06-01] MEDS: Senna/Docusate Sodium 8.6/50 MG Tablet PO SCH ×2 (08:49→22:53)
[2018-06-01] MEDS: Metoprolol Tartrate 25 MG Tablet PO SCH ×2 (08:49→22:51)
[2018-06-01] MEDS ORDERED: Influenza (Quadrivalent) Vaccine 0.5 ML Syringe IM ONE (14:00)
--- NOTE | 2018-06-01 15:49 | P.PNURO ---
Subjective Patient symptoms today: Patient was seen at bedside today, we discussed results of her renal US which showed moderate hydronephrosis, worse on right vs left. We discussed PCN placement by IR to prevent decline in kidney function. Patient underwent chemotherapy yesterday per her nurse. Objective Vital Signs: Vital Signs 05/31/18 20:00 06/01/18 00:00 06/01/18 04:00 Temperature 98.1 F 98.5 F 98.3 F Pulse Rate 76 61 70 Respiratory Rate 18 18 20 Blood Pressure 144/88 H 128/73 166/93 H Pulse Oximetry 96 97 99 06/01/18 08:00 06/01/18 12:50 Temperature 98.3 F 98.7 F Pulse Rate 70 62 Respiratory Rate 20 20 Blood Pressure 153/94 H 176/93 H Pulse Oximetry 99 98 Intake & Output 05/31/18 06/01/18 06/01/18 18:59 06:59 18:59 Intake Total 1000 / 1000 1000 / 1000 1000 / 1000 Balance 1000 / 1000 1000 / 1000 1000 / 1000 Weight 90.591 kg Intake: IV 1000 / 1000 1000 / 1000 1000 / 1000 NS Inj 1,000 ML @ 100 mls/hr IV 1000 / 1000 1000 / 1000 1000 / 1000 .CONT .Q10H [facility] Rx#:[id number] Other: # Voids 4 2 Weight On Admission 90.591 kg Result Diagrams: 05/31/18 07:36 05/31/18 07:36 Imaging: Impressions Abdomen/Bladder Ultrasound 05/31/18 00:00 CONCLUSION: 1. Bilateral hydronephrosis, greater on the right. 2. Distended urinary bladder with wall thickening. Medications and IVs: Active Medications Generic Name Dose Route Start Last Admin Trade Name Freq PRN Reason Stop Dose Admin Acetaminophen 650 mg 05/30/18 18:58 Tylenol PO Q4H PRN Temp > 100.4 Acetaminophen 650 mg 05/30/18 18:58 Tylenol PO Q6H PRN PAIN SCALE 1 TO 2 Al Hydroxide/Mg Hydroxide 30 ml 05/30/18 18:58 Milk Of Magnesia Liq PO Q12H PRN Mild Constipation Bisacodyl 10 mg 05/30/18 18:58 Dulcolax Supp RECTAL DAILY PRN SEVERE CONSITIPATION Ciprofloxacin HCl 500 mg 05/31/18 06:00 06/01/18 05:59 Cipro PO 500 mg BID@0600,1800 [facility] Administration Clonidine HCl 0.1 mg 05/31/18 02:07 Catapres PO Q6H PRN SBP>160 and/or DBP>100; HR>60 Dexamethasone Sodium Phosphate 2 mg 05/31/18 06:00 06/01/18 12:49 Decadron Inj IV.PUSH Not Given Q6H [facility] Famotidine 10 mg 06/01/18 21:00 Pepcid Pf Inj IV.PUSH Q12HR [facility] Sodium Chloride 1,000 mls @ 100 mls/hr 05/31/18 06:00 06/01/18 12:49 Ns Inj IV.CONT 100 mls/hr .Q10H [facility] Administration Lactulose 30 ml 05/30/18 18:58 Lactulose Liq PO DAILY PRN SEVERE CONSITIPATION Metoprolol Tartrate 25 mg 05/31/18 21:00 06/01/18 08:49 Lopressor PO 25 mg BID [facility] Administration Morphine Sulfate 4 mg 05/30/18 18:58 Morphine Inj IV.PUSH Q3H PRN BREAKTHROUGH PAIN Naloxone HCl 0.4 mg 05/30/18 18:58 Narcan Inj IV.PUSH UNSCH PRN SEE LABEL COMMENTS Ondansetron HCl 4 mg 05/30/18 18:58 Zofran Inj IV.PUSH Q6H PRN NAUSEA OR VOMITING Oxycodone/Acetaminophen 1 tab 05/30/18 18:58 Percocet 10/325 Mg PO Q6H PRN PAIN SCALE 6 TO 10 Oxycodone/Acetaminophen 1 tab 05/30/18 18:58 06/01/18 05:58 Percocet 5/325 Mg PO 1 tab Q6H PRN Administration PAIN SCALE 3 TO 5 Senna/Docusate Sodium 1 tab 05/30/18 21:00 06/01/18 08:49 Corine-Colace PO Not Given BID [facility] Sennosides 17.2 mg 05/30/18 18:58 Senokot PO Q12H PRN Moderate Constipation Sodium Chloride 2 ml 05/30/18 21:00 06/01/18 12:48 Ns Flush IV.FLUSH Not Given BID [facility] Sodium Chloride 2 ml 05/30/18 18:58 Ns Flush IV.FLUSH UNSCH PRN FLUSH AFTER USING IV ACCESS Assessment and Plan - Plan 52y.o f with metastatic bladder cancer Admitted due to L2 compression Fx Has b/l stents and some hydro on CT L spine, confirmed to be moderate-severe on renal US, right > left - Continue current management as per primary team and other consulted teams - No acute intervention needed - Patient will benefit from bilateral PCN placement by IR - Urology remains available as needed F/u with Dr Hannah as an outpt after d/c for stent removal and cystoscopy Discussed Condition With: Primary team and Dr. Niels ERNST attending
--- NOTE | 2018-06-01 16:09 | P.PNIM ---
Subjective Interval history: Follow-up for bladder cancer, bilateral hydronephrosis metastasis to lumbar spine with pathologic compression fracture and L2, HPI, hypertension, hypokalemia and thrombocytopenia. Patient seen and examined laying in bed, stating stated pain is controlled by pain medication. Patient denies any abdominal pain, nausea, vomiting, diarrhea or constipation. Patient confirmed that she had seen an oncologist and had one round of chemo treatment in May 19 and , her oncology name is Dr. Sen.. Patient states that neurosurgeon came in however wants to wait for the MRI to see if she is a surgical candidate. Patient stated back pain is controlled with pain medications and not too bad. Patient denies any headache or dizziness, denies any chest pain or shortness of breath, denies any fever or chills. Nurse reported obtained MRI report from [facility], and family will bring a copy of the disc. Physical Exam Vital signs: Vital Signs 05/31/18 20:00 06/01/18 00:00 06/01/18 04:00 Temperature 98.1 F 98.5 F 98.3 F Pulse Rate 76 61 70 Respiratory Rate 18 18 20 Blood Pressure 144/88 H 128/73 166/93 H Pulse Oximetry 96 97 99 06/01/18 08:00 06/01/18 12:50 Temperature 98.3 F 98.7 F Pulse Rate 70 62 Respiratory Rate 20 20 Blood Pressure 153/94 H 176/93 H Pulse Oximetry 99 98 Intake & Output 05/31/18 06/01/18 06/01/18 18:59 06:59 18:59 Intake Total 1000 / 1000 1000 / 1000 1000 / 1000 Balance 1000 / 1000 1000 / 1000 1000 / 1000 Weight 90.591 kg Intake: IV 1000 / 1000 1000 / 1000 1000 / 1000 NS Inj 1,000 ML @ 100 mls/hr IV 1000 / 1000 1000 / 1000 1000 / 1000 .CONT .Q10H [facility] Rx#:[id number] Other: # Voids 4 2 Weight On Admission 90.591 kg Narrative: GENERAL: Well-developed, well-nourished, young looking female in no apparent distress SKIN: Warm and dry. HEAD: Atraumatic. Normocephalic. EYES: Pupils equal and round. No scleral icterus. No injection or drainage. ENT: No nasal bleeding or discharge. Mucous membranes pink and moist. NECK: Trachea midline. No JVD. CARDIOVASCULAR: Regular rate and rhythm. RESPIRATORY: No accessory muscle use. Clear to auscultation. Breath sounds equal bilaterally. GASTROINTESTINAL: Abdomen soft, non-tender, nondistended. Hepatic and splenic margins not palpable. MUSCULOSKELETAL: Extremities without clubbing, cyanosis, or edema. Lumbar paraspinal tenderness with palpation NEUROLOGICAL: Awake and alert and oriented x3. No obvious cranial nerve deficits. Motor grossly within normal limits. Generalized weakness moving all 4 extremities. Normal speech. PSYCHIATRIC: Appropriate mood and affect; insight and judgment normal. Results - Labs CBC & Chem 7: 05/31/18 07:36 05/31/18 07:36 Microbiology 05/30/18 18:37 Clean Catch Urine Urine Culture - Final 50-100,000 cfu/mL mixed gram positive xenia (probable contaminants) - Imaging Impressions Abdomen/Bladder Ultrasound 05/31/18 00:00 CONCLUSION: 1. Bilateral hydronephrosis, greater on the right. 2. Distended urinary bladder with wall thickening. Assessment and Plan - Assessment (1) Mass of spine Code(s): M89.9 - Disorder of bone, unspecified Status: Acute (2) Bladder cancer Code(s): C67.9 - Malignant neoplasm of bladder, unspecified Status: Acute (3) Renal insufficiency Code(s): N28.9 - Disorder of kidney and ureter, unspecified Status: Acute (4) Pathologic compression fracture of lumbar vertebra Code(s): M48.56XA - Collapsed vertebra, not elsewhere classified, lumbar region , initial encounter for fracture Status: Acute - Plan This is a 52 years-old female with a history of left parietal CVA (10/06), bladder cancer diagnosed in July 2017 and followed at [facility] by Dr. Sen, hydronephrosis s/p bilateral stent placement by Dr. Hannah, hypertension, and intermittent GERD who presented to the emergency room complaining of back pain and outpatient MRI demonstrating compression fracture. Bladder cancer with possible metastasis to spinal column Pathologic compression fracture, L2 Myeloma vs Metastatic Disease -MRI at [facility] showed interval increase in size of enhancing destructive metastasis centered within the posterior L2 vertebral body and right pedicle since 04/13/2018 lumbar spine MRI -superimposed newly appearing pathological compression fracture of L2. Posterior bulging of the metastasis and extraosseous disease extension into the ventral and right lateral epidural spaces at L2 contributing to worsened moderate spinal canal stenosis. Effacement of the right subarticular recess with compression of the right L2 nerve root. There was also extraosseous extension of the pathologic soft tissue into the right paravertebral soft tissues at the L2 level with surrounding edema. Pathological soft tissue extends into the L2-L3 neural foramen with associated moderate right neural foraminal stenosis and abutment/ partial compression of the right foraminal L2 nerve root. -Consult neurosurgery-Dr. Ortiz, appreciate recommendation. Recommended MRI of the lumbar spine. -N.p.o. after midnight except for meds -Dexamethasone 2 mg IV every 6 hours (patient refusing 4 mg dosing) -Percocet as needed for pain with morphine IV for breakthrough pain -MRI recently done in [facility] on 05/27/18, copy of report in the chart. Copy of the disc will be brought by family today. -MRI lumbar spine ordered per neurosurgeon recommendation Bladder Cancer Bilateral hydronephrosis 5 mm calculus and right renal pelvis Bilateral ureteral stents Bacteuria - follows with Dr. Sen at [facility] - treated with chemo and radiation x 1 treatment -Consult to urology for evaluation of hydronephrosis despite ureteral stenting -Patient sees Dr. Hannah at [facility] -Urinalysis minimally suggestive of UTI with culture indicated, awaiting results - continue on Cipro -awaiting urine culture and adjust treatment as needed -Abdomen/bladder ultrasound:. Bilateral hydronephrosis, greater on the right. Distended urinary bladder with wall thickening. -plan to place nephrostomy tube on right side prior discussion with Urology Dwight Chapin PA: Acute on chronic renal insufficiency Hypokalemia -Likely secondary to chemotherapy and/or obstructive uropathy and/or possible UTI no labs from before 05/30/18 and after 08/10/11 to compare -Creatinine improving 1.44 today -Continue NS at 100 cc/hr -Follow renal indicis -Avoid nephrotoxic agents -Replaced KCL p.o. -Repeat labs in a.m. and follow results-further replace potassium as needed Hypertension Uncontrolled, blood pressure elevated -Continue clonidine 0.1 mg every 6 hours as needed systolic blood pressure>160 or diastolic blood pressure >100 -Start on metoprolol, adjust dose as needed -Monitor blood pressure trends and adjust treatments as indicated Thrombocytopenia- likely secondary to recent chemotherapy - platelet count 101,000 - repeat CBC, follow results DVT prophylaxis -SCDs -chemoprophylaxis not recommended until neurosurgical and urology evaluations are complete secondary to possible surgery Code Status: Full code Discussed Condition With: Patient and nurse Discharge Planning: Plan for discharge when cleared with Neurosurgeon and Urology (2) Bladder cancer Qualifiers: Qualified Code(s): C67.9 - Malignant neoplasm of bladder, unspecified (4) Pathologic compression fracture of lumbar vertebra Qualifiers: Qualified Code(s): M48.56XA - Collapsed vertebra, not elsewhere classified, lumbar region, initial encounter for fracture
--- NOTE | 2018-06-01 16:41 | P.PNNS ---
Subjective Interval history: no changes in pain and symptoms, unable to obtain MRI done outpatient Physical Exam Vital signs: Vital Signs 05/31/18 20:00 06/01/18 00:00 06/01/18 04:00 Temperature 98.1 F 98.5 F 98.3 F Pulse Rate 76 61 70 Respiratory Rate 18 18 20 Blood Pressure 144/88 H 128/73 166/93 H Pulse Oximetry 96 97 99 06/01/18 08:00 06/01/18 12:50 Temperature 98.3 F 98.7 F Pulse Rate 70 62 Respiratory Rate 20 20 Blood Pressure 153/94 H 176/93 H Pulse Oximetry 99 98 Intake & Output 05/31/18 06/01/18 06/01/18 18:59 06:59 18:59 Intake Total 1000 / 1000 1000 / 1000 1000 / 1000 Balance 1000 / 1000 1000 / 1000 1000 / 1000 Weight 90.591 kg Intake: IV 1000 / 1000 1000 / 1000 1000 / 1000 NS Inj 1,000 ML @ 100 mls/hr IV 1000 / 1000 1000 / 1000 1000 / 1000 .CONT .Q10H AMAIRANI Rx#:[id number] Other: # Voids 4 2 Weight On Admission 90.591 kg Narrative: GENERAL: no acute distress SKIN: Warm and dry. HEAD: Atraumatic. Normocephalic. EYES: Pupils equal and round. No scleral icterus. No injection or drainage. ENT: No nasal bleeding or discharge. Mucous membranes pink and moist. NECK: Trachea midline. No JVD. CARDIOVASCULAR: Regular rate and rhythm. RESPIRATORY: No accessory muscle use. Clear to auscultation. Breath sounds equal bilaterally. MUSCULOSKELETAL: Extremities without clubbing, cyanosis, or edema. Lumbar paraspinal tenderness with palpation NEUROLOGICAL: Awake and alert and oriented x3. No obvious cranial nerve deficits. Motor grossly within normal limits. Generalized weakness moving all 4 extremities. Normal speech. Assessment and Plan - Plan I have reviewed the clinical and radiological findings Lumbar Spine CT 05/30/18 17:06 CONCLUSION: 1. Extensive lytic bone destruction of L2 with soft tissue mass, spinal stenosis and pathologic fracture as above. Primary differential diagnosis is myeloma versus metastatic disease from reported history of bladder cancer. 2. Moderate degenerative changes as above. Pathologic compression fracture, L2. recommend MRI lumbar spine Bladder Cancer - follows with Dr. Sen at [facility] - treated with chemo and radiation treatment Bilateral hydronephrosis 5 mm calculus and right renal pelvis Bilateral ureteral stents Consult to urology for evaluation of hydronephrosis despite ureteral stenting Urinalysis minimally suggestive of UTI with culture indicated -we will continue patient on Cipro for now -await urine culture and adjust treatment as needed Hypokalemia -Replaced -Repeat labs in a.m. and follow results-further replace potassium as needed Acute on chronic renal insufficiency- suspect secondary to chemotherapy and/or obstructive uropathy and/or possible UTI- no labs from before 05/30/18 and after 08/10/11 to compare -BUN 30, creatinine 1.67, estimated GFR 32 -NS at 100 cc/hr -Repeat labs in a.m. and follow results Hypertension -Clonidine 0.1 mg every 6 hours as needed systolic blood pressure greater than 160 or diastolic blood pressure greater than 100 of heart rate is greater than 60 -Monitor blood pressure trends and adjust treatments as indicated Thrombocytopenia- likely secondary to recent chemotherapy - platelet count 107,000 - repeat CBC in a.m. follow results Pulmonary: aggressive pulmonary toilette, nasotracheal suction, and breathing treatments with nebulizers. PT and OT Renal: Continue to monitor closely urine output, BUN and creatinine Endocrine: Monitor serial Acu checks and SSI as needed in detail ID Abx for UTI Protonix for stress ulcer prophylaxis Rajesh luciano and SCD's for DVT prophylaxis Point Value = 1 Point Value = 2 Point Value = 3 Point Value = 5 Age 41-60 Minor surgery BMI > 25 kg/m2 Swollen legs Varicose veins or History of unexplained or recurrent spontaneous Oral contraceptives or hormone replacement Sepsis (< 1 month) Serious lung disease, including pneumonia (< 1 month) Abnormal pulmonary function Acute myocardial infarction Congestive heart failure (< 1 month) History of inflammatory bowel disease Medical patient at bed rest Age 61-74 Arthroscopic surgery Major open surgery (> 45 min) Laparoscopic surgery (> 45 min) Malignancy Confined to bed (> 72 hours) Immobilizing plaster cast Central venous access Age >= 75 History of VTE Family history of VTE Factor V Leiden Prothrombin [id number] Lupus anticoagulant Anticardiolipin antibodies Elevated serum homocysteine Heparin-induced thrombocytopenia Other congenital or acquired thrombophilia Stroke (< 1 month) Elective arthroplasty Hip, pelvis, or leg fracture Acute spinal cord injury (< 1 month) Prophylaxis Regimen: Total Risk Factor Score Risk Level Prophylaxis Regimen 0-1 Low Early ambulation 2 Moderate Order ONE of the following: *Sequential Compression Device (SCD) *Heparin 5000 units SQ BID 3-4 Higher Order ONE of the following medications: *Heparin 5000 units SQ TID *Enoxaparin/Lovenox 40 mg SQ daily (WT < 150 kg, CrCl > 30 mL/min) *Enoxaparin/Lovenox 30 mg SQ daily (WT < 150 kg, CrCl > 10-29 mL/min) *Enoxaparin/Lovenox 30 mg SQ BID (WT < 150 kg, CrCl > 30 mL/min) AND/OR *Sequential Compression Device (SCD) 5 or more Highest Order ONE of the following medications: *Heparin 5000 units SQ TID (Preferred with Epidurals) *Enoxaparin/Lovenox 40 mg SQ daily (WT < 150 kg, CrCl > 30 mL/min) *Enoxaparin/Lovenox 30 mg SQ daily (WT < 150 kg, CrCl > 10-29 mL/min) *Enoxaparin/Lovenox 30 mg SQ BID (WT < 150 kg, CrCl > 30 mL/min) AND *Sequential Compression Device (SCD)
[2018-06-01] MEDS ORDERED: Gadobutrol PF 10 MMOL/10 ML Vial (for RAD) IV.SIG ONE (19:10)
--- NOTE | 2018-06-01 19:35 | MR ---
EXAM DATE: 06/01/2018 7:22 PM EST AGE/SEX: 52 years / Female INDICATIONS: Metastatic disease. CLINICAL DATA: This is the patient's subsequent encounter. Patient reports that signs and symptoms h ave been present for 2 days and indicates a pain score of 4/10. MEDICAL/SURGICAL HISTORY: Carcinoma, bladder. Cholecystectomy. Renal stents. Removal of bladde r cancer. COMPARISON: [facility] [place] LUMBAR [place]/O [place]AST, 05/30/2018. . TECHNIQUE: Multiplanar, multisequence MRI examination of the lumbar spine was performed without and with 9 ml Gadavist (gadobutrol) contrast as a single exam dose. FINDINGS: A substantially cystic, lobulated, destructive as well as expansile mass involves the L2 vertebral naima dy and right posterior elements. There is a sagittally oriented cleft through the vertebral body and also mild loss of height. The lesion is approximately 3.8 x 4.9 cm in greatest transaxial dimension a nd 2.2 cm craniocaudal. The bony expansion causes narrowing of the right lateral recess. There is als o mild narrowing of the right L2/L3 foramen. Only slight narrowing of the right L1/L2 foramen. The le donovan enhances heterogeneously. There is a large amount of reactive appearing enhancement in the epidu ral space and soft tissues adjacent to the lesion. No other focal bone lesions are demonstrated. Right greater than left hydronephrosis present. The L4/L5 disc is desiccated and has moderate loss of height. There is a moderate-sized posterior dis c protrusion and moderate bilateral facet osteoarthritis causing mild spinal stenosis and mild, mostl y left-sided foraminal stenosis. The L5/S1 disc is desiccated and has mild loss of height. There is a small, broad posterior disc prot rusion and mild bilateral facet osteoarthritis. No significant foraminal or spinal stenosis. CONCLUSION: 1. Large, lobulated and expansile lesion of the right side of the L2 vertebral body and posterior el ements as described. There is reactive appearing enhancement adjacent epidural space and soft tissues . The right side of the L2 vertebral body has mild loss of height consistent with a pathologic fractu re. Tumor-associated mild narrowing of the right lateral recess and mild right foraminal stenosis at both L1/L2 and L2/L3. 2. Degenerative changes at L4/L5 and L5/S1 as described. 3. Bilateral hydronephrosis despite presence of ureteral stents. Electronically signed by: Timbo Ventura MD 06/01/2018 7:34 PM EST
--- NOTE | 2018-06-01 20:31 | MB ---
cc: Rene Sen MD DATE: 06/01/2018 REQUESTING PHYSICIAN: Hospitalist. REASON FOR CONSULTATION: Evaluation of metastatic bladder cancer. HISTORY OF PRESENT ILLNESS: Shannan is a pleasant 60-year-old lady, who is well known to me for management of her recently diagnosed metastatic bladder cancer. She has received radiation to the metastatic lesion in the L2 spine, followed by systemic chemo with 1 dose of MVAC, and she has not been doing well with increasing pain. I ordered an MRI of the lumbar spine, which was completed 3 days ago. It did not show any cord compression, but certainly had increasing metastatic disease to the L2 with pathological fracture, and, hence, I admitted her to the hospital for further surgical intervention. I was asked to see her for continued management of her metastatic bladder cancer. Currently, she is in pain from this spinal fracture, but is otherwise asymptomatic. She has been seen by neurosurgery, and the MRI of the lumbar spine was ordered to be repeated. It has not been not done yet. REVIEW OF SYSTEMS: There are no headaches, cough, chest pain, or shortness of breath. No abdominal pain, distention, nausea, vomiting, blood in the stool or black stools. No frequency, urgency or hematuria. She had renal calculus and worsening renal insufficiency. No fevers or night sweats. PAST MEDICAL HISTORY: As above. She was diagnosed with bladder cancer approximately 3 months ago, when she was admitted to [facility] in [facility], and subsequently underwent a partial cystectomy, which confirmed muscle invasive bladder cancer, as the previous biopsy was considered to have superficial bladder cancer. After the surgery, she was also noted to have metastatic lesion to the L-spine, which, as mentioned, was irradiated. No other surgical history and no other major medical history. SOCIAL HISTORY: She has no history of smoking or alcohol abuse. MEDICATIONS IN THE HOSPITAL: She is receiving Dulcolax, Cipro, Catapres Decadron, Pepcid, metoprolol, Zofran p.r.n. PHYSICAL EXAMINATION: GENERAL: A young lady, healthy-appearing, in no apparent distress, mildly obese. Alert and oriented x4. VITAL SIGNS: Stable. She is afebrile. HEENT: Pallor present. No icterus. Without oropharyngeal lesions, no gum bleeding or hypertrophy. LYMPHATIC: No palpable adenopathy in the neck or axilla. BACK: Spine tenderness in the lumbar paraspinal area without obvious mass and no step sign. GENITOURINARY: No incontinence. LUNGS: Clear to auscultation. ABDOMEN: Soft and nontender without palpable organomegaly. EXTREMITIES: Nonfocal raising both lower extremities without difficulty. No edema or evidence of DVTs. PLAN: Neurosurgical consultation by Dr. Ortiz, and urology consult reviewed. CT of L -spine of 05/30/2018 reviewed. She is planned to have bilateral percutaneous nephrostomy tubes by IR. Possible neurosurgical intervention after MRI of the spine. The patient has obtained her MRI, done at [facility]. IMPRESSION: Metastatic bladder cancer to L-spine, status post 1 cycle of MVAC with progressive disease despite radiation to the L-spine, causing pathologic compression fracture requiring surgery. Agree with neurosurgical and urologic evaluation and followup. We will hold off on chemotherapy, and consider nephrology consultation after bilateral urostomies are placed, if there is no further improvement in her renal function. Long discussion with the patient, , son, and [id number], and explained all the options and possible need for evaluation at [facility] for her metastatic bladder cancer for clinical trials, etc. She is not a candidate for continuing MVAC, and we will consider carboplatin and Gemzar a second line therapy as planned, after the above surgical procedures. In addition, I have ordered MSI testing and PD-L1 testing for possible immunotherapy, and that will be pursued after the above as indicated. Discussed with the patient and the family, and answered the questions. I will see her in followup. She will need to be aggressively hydrated at this point, due to her worsening renal insufficiency. Case discussed with Dr. Morocho this morning. MD BHARATH Lopez/wei/mame , 06:05 PM , 06:17 PM MICHAEL
[2018-06-02] MEDS: Ciprofloxacin 500 MG Tablet PO SCH ×2 (06:08→17:45)
[2018-06-02] MEDS: Metoprolol Tartrate 25 MG Tablet PO SCH (08:44)
[2018-06-02] MEDS: Famotidine PF Inj 20 MG/2 ML Vial IV.PUSH SCH ×2 (08:48→20:52)
--- NOTE | 2018-06-02 09:06 | P.PNIM ---
Subjective Interval history: Follow-up vertebral fracture L2 compression fracture, bladder cancer, hydronephrosis, and hypertension. Patient seen and examined sitting in the bed , complaining of some lower right back pain controlled by pain medications. Patient also concerned about the new medication for blood pressure, patient requested to take just one medication or less medication than she patient explained about high blood pressures have admission, mostly related to. Discussed will change patient to a once a day, patient agreed. Nurse in room, called IR for schedule first to me placement, stated need to be n.p.o. 8 hours. Discussed with patient. Patient agreed nephrostomy placement. Urologist also discuss cost nephrostomy placement with the patient yesterday. Physical Exam Vital signs: Last Vital Signs Temp 97.8 F 06/02/18 08:00 Pulse 59 L 06/02/18 08:00 Resp 20 06/02/18 08:00 BP 128/78 06/02/18 08:00 Pulse Ox 100 06/02/18 08:00 Intake & Output 05/31/18 06/01/18 06/02/18 06/03/18 06:59 06:59 06:59 06:59 Intake Total 1999 Output Total Balance -3 / -3 1999 Weight 0 g 90.591 kg Narrative: GENERAL: Well-developed, well-nourished, young looking female in no apparent distress SKIN: Warm and dry. HEAD: Atraumatic. Normocephalic. EYES: Pupils equal and round. No scleral icterus. No injection or drainage. ENT: No nasal bleeding or discharge. Mucous membranes pink and moist. NECK: Trachea midline. No JVD. CARDIOVASCULAR: Regular rate and rhythm. RESPIRATORY: No accessory muscle use. Clear to auscultation. Breath sounds equal bilaterally. GASTROINTESTINAL: Abdomen soft, non-tender, nondistended. Hepatic and splenic margins not palpable. MUSCULOSKELETAL: Extremities without clubbing, cyanosis, or edema. Lumbar paraspinal tenderness with palpation NEUROLOGICAL: Awake and alert and oriented x3. No obvious cranial nerve deficits. Motor grossly within normal limits. Generalized weakness moving all 4 extremities. Normal speech. PSYCHIATRIC: Appropriate mood and affect; insight and judgment normal. Results Labs CBC & Chem 7: 05/31/18 07:36 05/31/18 07:36 Labs: Microbiology 05/30/18 18:37 Clean Catch Urine Urine Culture - Final 50-100,000 cfu/mL mixed gram positive xenia (probable contaminants) Imaging Imaging: Impressions Lumbar Spine MRI 06/01/18 00:00 CONCLUSION: 1. Large, lobulated and expansile lesion of the right side of the L2 vertebral body and posterior elements as described. There is reactive appearing enhancement adjacent epidural space and soft tissues. The right side of the L2 vertebral body has mild loss of height consistent with a pathologic fracture. Tumor-associated mild narrowing of the right lateral recess and mild right foraminal stenosis at both L1/L2 and L2/L3. 2. Degenerative changes at L4/L5 and L5/S1 as described. 3. Bilateral hydronephrosis despite presence of ureteral stents. 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 Sen, hydronephrosis s/p bilateral stent placement by Dr. Hannah, hypertension, and intermittent GERD who presented to the emergency room complaining of back pain and outpatient MRI demonstrating compression fracture. Bladder cancer with possible metastasis to spinal column Pathologic compression fracture, L2 Myeloma vs Metastatic Disease -MRI at [facility] showed interval increase in size of enhancing destructive metastasis centered within the posterior L2 vertebral body and right pedicle since 04/13/2018 lumbar spine MRI -superimposed newly appearing pathological compression fracture of L2. Posterior bulging of the metastasis and extraosseous disease extension into the ventral and right lateral epidural spaces at L2 contributing to worsened moderate spinal canal stenosis. Effacement of the right subarticular recess with compression of the right L2 nerve root. There was also extraosseous extension of the pathologic soft tissue into the right paravertebral soft tissues at the L2 level with surrounding edema. Pathological soft tissue extends into the L2-L3 neural foramen with associated moderate right neural foraminal stenosis and abutment/ partial compression of the right foraminal L2 nerve root. -Consult neurosurgery-Dr. Ortiz, appreciate recommendation. Recommended MRI of the lumbar spine. -N.p.o. after midnight except for meds -Dexamethasone 2 mg IV every 6 hours (patient refusing 4 mg dosing) -Percocet as needed for pain with morphine IV for breakthrough pain -MRI recently done in [place] on 05/27/18, copy of report in the chart. Copy of the disc will be brought by family today. -MRI lumbar spine 06/01/18: Large lobulated lesion on the side of L2 , tumor associated mild narrowing of L1-L2 and L2-L3 -Neurosurgeon/Dr. Ortiz plan to have surgery tomorrow, after nephrostomy tube placement today per discussion with Dr. Morocho Bladder Cancer Bilateral hydronephrosis 5 mm calculus and right renal pelvis Bilateral ureteral stents Bacteuria - follows with Dr. Sen at [place] - treated with chemo and radiation x 1 treatment -Consult to urology for evaluation of hydronephrosis despite ureteral stenting -Patient sees Dr. Hannah at [place] -Urinalysis minimally suggestive of UTI with culture indicated, awaiting results - continue on Cipro -awaiting urine culture and adjust treatment as needed -Abdomen/bladder ultrasound:. Bilateral hydronephrosis, greater on the right. Distended urinary bladder with wall thickening. -plan to place nephrostomy tube on right side prior discussion with Urology Dwight ROSAS -Oncology consult appreciated, Dr. Sen: Recommended to follow-up with [facility] for evaluation and possible clinical trial treatment -Consult interventional radiology for nephrostomy tube placement per urology recommendation Acute on chronic renal insufficiency Hypokalemia -Likely secondary to chemotherapy and/or obstructive uropathy and/or possible UTI no labs from before 05/30/18 and after 08/10/11 to compare -Creatinine improving 1.44 today -Continue NS at 100 cc/hr -Follow renal indicis -Avoid nephrotoxic agents -Replaced KCL p.o. -Repeat labs in a.m. and follow results-further replace potassium as needed -Nephrology consulted, appreciate recommendation Hypertension Uncontrolled, blood pressure elevated -Previous history of high blood pressure however stopped taking medication due to controlled blood pressure recently -Likely related to pain -Continue clonidine 0.1 mg every 6 hours as needed systolic blood pressure>160 or diastolic blood pressure >100 -Changed to metoprolol succinate, she preferred once a day dose. However discussed the cost of the medication more than twice a day dose. -Monitor blood pressure trends and adjust treatments as indicated Thrombocytopenia- likely secondary to recent chemotherapy - platelet count 101,000 - repeat CBC, follow results DVT prophylaxis -SCDs -chemoprophylaxis not recommended until neurosurgical and urology evaluations are complete secondary to possible surgery Discharge Planning: Plan for discharge when cleared with Neurosurgeon and Urology Progress Note: Quality VTE Deep Vein Thrombosis/Pulmonary Embolism Present on Admission: No
[2018-06-02] MEDS: Senna/Docusate Sodium 8.6/50 MG Tablet PO SCH ×3 (09:32→22:21)
--- NOTE | 2018-06-02 10:33 | P.CONNP ---
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 Sen, hydronephrosis s/p bilateral stent placement by Dr. Hannah, hypertension, and intermittent GERD. Presented to the emergency room complaining of back pain and outpatient MRI demonstrating compression fracture. Nephrology is consulted for acute kidney injury with a creatinine of 1.44 which has improved from admission creatinine of 1.67. Patient reported that she has had 1 run of chemotherapy which she was told that her kidney function declined. She has had good intake despite increased lower back pain. Denies any shortness of breath, chest pain, fevers, chills, nausea, or vomiting. Plan for nephrostomy tube placement today per Interventional. [facility] - History History Provided By: Patient - Medical History Medical History: Medical History (Last Updated 05/31/18 @ 02:14 by JORGE L Álvarez) Bladder cancer HTN (hypertension) History of CVA (cerebrovascular accident) Metastasis to spinal column - Surgical History Surgical History: Surgical History (Last Updated 05/31/18 @ 00:50 by JORGE L Álvarez) History of History of biopsy History of cystoscopy Hx of cholecystectomy Status post placement of ureteral stent - Family History Family History: Family History (Last Updated 05/31/18 @ 00:52 by JORGE L Álvarez) Brother Colorectal cancer Sister Colorectal cancer Father Family history of coronary artery disease - Tobacco History Second Hand Smoke Exposure: No Tobacco Use In Past 30 Days: No Smoking Status: Never smoker Tobacco Type: Cigarettes - Alcohol History How Often Do You Have a Drink Containing Alcohol: Monthly or less - Substance Use History Substance History: No History of Abuse - Travel History Recent Travel in the [place] Within the Last 8 Weeks: No Recent Travel Out of the Country Within the Last 8 Weeks: No - Immunization History Tetanus Immunization: >5 Years Hx Influenza Vaccine This Season: No Medications and Allergies Allergies Allergy/AdvReac Type Severity Reaction Status Date / Time No Known Allergies Allergy Verified 05/30/18 15:06 Home Medications Medication Instructions Recorded Confirmed Type ciprofloxacin HCl 500 mg PO BID 05/30/18 05/30/18 History dexamethasone 4 mg PO Q12H 05/30/18 05/30/18 History famotidine 20 mg PO DAILY 05/30/18 05/30/18 History oxycodone-acetaminophen 1 tab PO BID 05/30/18 05/30/18 History Active Medications: Active Medications Acetaminophen (Tylenol) 650 mg PO Q4H PRN PRN Reason: Temp > 100.4 Acetaminophen (Tylenol) 650 mg PO Q6H PRN PRN Reason: PAIN SCALE 1 TO 2 Al Hydroxide/Mg Hydroxide (Milk Of Magnesia Liq) 30 ml PO Q12H PRN PRN Reason: Mild Constipation Bisacodyl (Dulcolax Supp) 10 mg RECTAL DAILY PRN PRN Reason: SEVERE CONSITIPATION Ciprofloxacin HCl (Cipro) 500 mg PO BID@0600,1800 [facility] [place] Last Admin: 06/02/18 06:08 Dose: 500 mg Clonidine HCl (Catapres) 0.1 mg PO Q6H PRN PRN Reason: SBP>160 and/or DBP>100; HR>60 Dexamethasone Sodium Phosphate (Decadron Inj) 2 mg IV.PUSH Q6H [facility] [place] Last Admin: 06/02/18 06:08 Dose: 2 mg Famotidine (Pepcid Pf Inj) 10 mg IV.PUSH Q12HR [facility] [place] Last Admin: 06/02/18 08:48 Dose: 10 mg Sodium Chloride (Ns Inj) 1,000 mls @ 100 mls/hr IV.CONT .Q10H [facility] [place] Last Admin: 06/01/18 22:50 Dose: 100 mls/hr Lactulose (Lactulose Liq) 30 ml PO DAILY PRN PRN Reason: SEVERE CONSITIPATION Metoprolol Succinate (Toprol Xl) 25 mg PO DAILY [facility] [place] Last Admin: 06/02/18 09:33 Dose: 25 mg Morphine Sulfate (Morphine Inj) 4 mg IV.PUSH Q3H PRN PRN Reason: BREAKTHROUGH PAIN Naloxone HCl (Narcan Inj) 0.4 mg IV.PUSH UNSCH PRN PRN Reason: SEE LABEL COMMENTS Ondansetron HCl (Zofran Inj) 4 mg IV.PUSH Q6H PRN PRN Reason: NAUSEA OR VOMITING Oxycodone/Acetaminophen (Percocet 10/325 Mg) 1 tab PO Q6H PRN PRN Reason: PAIN SCALE 6 TO 10 Oxycodone/Acetaminophen (Percocet 5/325 Mg) 1 tab PO Q6H PRN PRN Reason: PAIN SCALE 3 TO 5 Last Admin: 06/02/18 06:08 Dose: 1 tab Senna/Docusate Sodium (Corine-Colace) 1 tab PO BID [facility] [place] Last Admin: 06/02/18 09:32 Dose: Not Given Sennosides (Senokot) 17.2 mg PO Q12H PRN PRN Reason: Moderate Constipation Sodium Chloride (Ns Flush) 2 ml IV.FLUSH BID [facility] [place] Last Admin: 06/02/18 08:36 Dose: Not Given Sodium Chloride (Ns Flush) 2 ml IV.FLUSH UNSCH PRN PRN Reason: FLUSH AFTER USING IV ACCESS Exam Vital signs: Vital Signs 06/01/18 12:50 06/01/18 15:50 06/01/18 20:00 Temperature 98.7 F 97.9 F 97.8 F Pulse Rate 62 60 66 Respiratory Rate 20 20 18 Blood Pressure 176/93 H 165/97 H 130/76 Pulse Oximetry 98 96 98 06/02/18 00:00 06/02/18 04:00 06/02/18 08:00 Temperature 97.6 F 97.9 F 97.8 F Pulse Rate 63 59 L Respiratory Rate 20 20 Blood Pressure 165/84 H 161/95 H 128/78 Pulse Oximetry 96 99 100 Intake & Output 06/01/18 06/02/18 06/02/18 18:59 06:59 18:59 Intake Total 1000 / 1000 1000 / 1000 240 / 240 Balance 1000 / 1000 1000 / 1000 240 / 240 Intake: IV 1000 / 1000 1000 / 1000 NS Inj 1,000 ML @ 100 mls/hr IV 1000 / 1000 1000 / 1000 .CONT .Q10H [facility] Rx#:[id number] Oral 240 / 240 Other: # Voids 3 3 1 Narrative: GENERAL: Alert and oriented. SKIN: Warm and dry. EYES: No scleral icterus. No injection or drainage. NECK: Supple, trachea midline. No JVD. CARDIOVASCULAR: Regular rate and rhythm without murmurs, gallops, or rubs. RESPIRATORY: Breath sounds equal bilaterally. No accessory muscle use. GASTROINTESTINAL: Abdomen soft, non-tender, nondistended. MUSCULOSKELETAL: No cyanosis, or edema. BACK: Tenderness on palpation in lower back region. Results - Lab Results 05/31/18 07:36 06/02/18 11:38 Most recent lab results Calcium 8.6 mg/dL (8.5-10.1) 05/31/18 07:36 Assessment and Plan - Assessment (1) Renal insufficiency Code(s): N28.9 - Disorder of kidney and ureter, unspecified Status: Acute Plan: . Acute kidney injury with a creatinine on admission of 1.67 which has improved with IVF to 1.44. RIYA possible AIN secondary to chemotherapy and/or post renal with obstructive uropathy. Renal ultrasound with right with moderate to severe hydronephrosis and left kidney with moderate hydronephrosis. Has been seen by Dr. Hannah in past and has bilateral ureteral stents. Plan for bilateral nephrostomy tubes today. Will order urine osmolarity, sodium , and creatinine. Avoid nephrotoxins including IV contrast, NSAIDs, and aminoglycosides. Has been taking ibuprofen at home. Potassium level at 3.4 replacement ordered. Will follow urinary output and BMP. (2) Bladder cancer Code(s): C67.9 - Malignant neoplasm of bladder, unspecified Status: Acute Plan: Extensive lytic bone destruction of L2 with soft tissue mass, spinal stenosis and pathologic fracture as above. Metastatic disease from reported history of bladder cancer. - follows with Dr. Sen at [facility] - treated with chemo and radiation treatment (3) Pathologic compression fracture of lumbar vertebra Code(s): M48.56XA - Collapsed vertebra, not elsewhere classified, lumbar region , initial encounter for fracture Status: Acute Plan: Neurosurgical consulted, surgery planned for tomorrow. (4) Hypertension Code(s): I10 - Essential (primary) hypertension Status: Acute Plan: Hypertensive. On metoprolol and has PRN clonidine will monitor. <Wagner Daily - Last Filed: 06/02/18 21:21> History of Present Illness Primary Care Provider: UNKNOWN [facility] - Medical History Medical History: Medical History (Last Updated 05/31/18 @ 02:14 by JORGE L Álvarez) Bladder cancer HTN (hypertension) History of CVA (cerebrovascular accident) Metastasis to spinal column - Surgical History Surgical History: Surgical History (Last Updated 05/31/18 @ 00:50 by JORGE L Álvarez) History of History of biopsy History of cystoscopy Hx of cholecystectomy Status post placement of ureteral stent - Family History Family History: Family History (Last Updated 05/31/18 @ 00:52 by JORGE L Álvarez) Brother Colorectal cancer Sister Colorectal cancer Father Family history of coronary artery disease Medications and Allergies Active Medications: Active Medications Acetaminophen (Tylenol) 650 mg PO Q4H PRN PRN Reason: Temp > 100.4 Acetaminophen (Tylenol) 650 mg PO Q6H PRN PRN Reason: PAIN SCALE 1 TO 2 Al Hydroxide/Mg Hydroxide (Milk Of Magnesia Liq) 30 ml PO Q12H PRN PRN Reason: Mild Constipation Bisacodyl (Dulcolax Supp) 10 mg RECTAL DAILY PRN PRN Reason: SEVERE CONSITIPATION Ciprofloxacin HCl (Cipro) 500 mg PO BID@0600,1800 [facility] [place] Last Admin: 06/02/18 17:45 Dose: 500 mg Clonidine HCl (Catapres) 0.1 mg PO Q6H PRN PRN Reason: SBP>160 and/or DBP>100; HR>60 Dexamethasone Sodium Phosphate (Decadron Inj) 2 mg IV.PUSH Q6H [facility] [place] Last Admin: 06/02/18 17:45 Dose: 2 mg Famotidine (Pepcid Pf Inj) 10 mg IV.PUSH Q12HR [facility] [place] Last Admin: 06/02/18 20:52 Dose: 10 mg Sodium Chloride (Ns Inj) 1,000 mls @ 100 mls/hr IV.CONT .Q10H [facility] [place] Last Admin: 06/02/18 17:48 Dose: Not Given Sodium Chloride (Ns Inj) 1,000 mls @ 100 mls/hr IV.CONT .Q10H [facility] [place] Cefazolin Sodium/Dextrose (Ancef 2 Gm Premix Inj) 2 gm in 50 mls @ 100 mls/hr IV.SIG INSPECTOR FINISHING PRN PRN Reason: ON-CALL Stop: 06/06/18 07:59 Lactulose (Lactulose Liq) 30 ml PO DAILY PRN PRN Reason: SEVERE CONSITIPATION Metoprolol Succinate (Toprol Xl) 25 mg PO DAILY [facility] [place] Last Admin: 06/02/18 09:33 Dose: 25 mg Morphine Sulfate (Morphine Inj) 4 mg IV.PUSH Q3H PRN PRN Reason: BREAKTHROUGH PAIN Naloxone HCl (Narcan Inj) 0.4 mg IV.PUSH UNSCH PRN PRN Reason: SEE LABEL COMMENTS Ondansetron HCl (Zofran Inj) 4 mg IV.PUSH Q6H PRN PRN Reason: NAUSEA OR VOMITING Oxycodone/Acetaminophen (Percocet 10/325 Mg) 1 tab PO Q6H PRN PRN Reason: PAIN SCALE 6 TO 10 Oxycodone/Acetaminophen (Percocet 5/325 Mg) 1 tab PO Q6H PRN PRN Reason: PAIN SCALE 3 TO 5 Last Admin: 06/02/18 20:51 Dose: 1 tab Senna/Docusate Sodium (Corine-Colace) 1 tab PO BID [facility] [place] Last Admin: 06/02/18 09:32 Dose: Not Given Sennosides (Senokot) 17.2 mg PO Q12H PRN PRN Reason: Moderate Constipation Sodium Chloride (Ns Flush) 2 ml IV.FLUSH BID [facility] Last Admin: 06/02/18 20:52 Dose: 2 ml Sodium Chloride (Ns Flush) 2 ml IV.FLUSH UNSCH PRN PRN Reason: FLUSH AFTER USING IV ACCESS Exam Vital signs: Vital Signs 06/02/18 00:00 06/02/18 04:00 06/02/18 08:00 Temperature 97.6 F 97.9 F 97.8 F Pulse Rate 63 59 L Respiratory Rate 20 20 Blood Pressure 165/84 H 161/95 H 128/78 Pulse Oximetry 96 99 100 06/02/18 11:55 06/02/18 15:55 06/02/18 16:10 Temperature 97.2 F L 98.5 F Pulse Rate 64 67 67 Respiratory Rate 20 20 20 Blood Pressure 132/74 149/91 H 150/95 H Pulse Oximetry 98 98 99 06/02/18 16:25 06/02/18 20:00 Temperature 98.4 F Pulse Rate 78 60 Respiratory Rate 20 20 Blood Pressure 148/93 H 135/75 Pulse Oximetry 96 98 Intake & Output 06/02/18 06/02/18 06/03/18 06:59 18:59 06:59 Intake Total 1000 / 1000 240 / 240 Output Total 800 / 800 Balance 1000 / 1000 240 / 240 -800 / -800 Intake: IV 1000 / 1000 NS Inj 1,000 ML @ 100 mls/hr IV 1000 / 1000 .CONT .Q10H [facility] [place] Rx#:[id number] Oral 240 / 240 Output: Urine 800 / 800 Other: # Voids 3 1 Results - Lab Results 05/31/18 07:36 06/02/18 11:38 Most recent lab results Calcium 8.1 mg/dL (8.5-10.1) L 06/02/18 11:38 Assessment and Plan - Assessment (1) Renal insufficiency Code(s): N28.9 - Disorder of kidney and ureter, unspecified Status: Acute Plan: Patient seen and examined, agree with above. Patient now has bilateral Nephrostomy. Follow the urine out put and BMP. (2) Bladder cancer Code(s): C67.9 - Malignant neoplasm of bladder, unspecified Status: Acute (3) Pathologic compression fracture of lumbar vertebra Code(s): M48.56XA - Collapsed vertebra, not elsewhere classified, lumbar region , initial encounter for fracture Status: Acute (4) Hypertension Code(s): I10 - Essential (primary) hypertension Status: Acute <Jeanie Alatorre - Last Filed: 06/02/18 14:17> (2) Bladder cancer Qualifiers: Bladder location: unspecified site Qualified Code(s): C67.9 - Malignant neoplasm of bladder, unspecified (3) Pathologic compression fracture of lumbar vertebra Qualifiers: Encounter type: initial encounter Qualified Code(s): M48.56XA - Collapsed vertebra, not elsewhere classified, lumbar region, initial encounter for fracture <Wagner Daily - Last Filed: 06/02/18 21:21> (2) Bladder cancer Qualifiers: Bladder location: unspecified site Qualified Code(s): C67.9 - Malignant neoplasm of bladder, unspecified (3) Pathologic compression fracture of lumbar vertebra Qualifiers: Encounter type: initial encounter Qualified Code(s): M48.56XA - Collapsed vertebra, not elsewhere classified, lumbar region, initial encounter for fracture
[2018-06-02 12:38] LABS: Calcium 8.1 mg/dL (8.5-10.1); Carbon Dioxide 21.5 meq/L (21.0-32.0); Potassium 3.4 meq/L (3.5-5.1)
[2018-06-02] MEDS ORDERED: Chlorhexidine 4% Topical 120 APPLIC/120 ML Bottle TOPICAL ONE (14:31)
[2018-06-02] MEDS ORDERED: fentaNYL Citrate Inj 250 MCG/5 ML Ampul ONE (14:55)
--- NOTE | 2018-06-02 15:07 | P.PNNS ---
Subjective Interval history: MRI lumbar spine completed, no new complaints <Patti Arciniegaaux - Last Filed: 06/03/18 15:19> Physical Exam Vital signs: Vital Signs 06/01/18 15:50 06/01/18 20:00 06/02/18 00:00 Temperature 97.9 F 97.8 F 97.6 F Pulse Rate 60 66 63 Respiratory Rate 20 18 20 Blood Pressure 165/97 H 130/76 165/84 H Pulse Oximetry 96 98 96 06/02/18 04:00 06/02/18 08:00 06/02/18 11:55 Temperature 97.9 F 97.8 F 97.2 F L Pulse Rate 59 L 64 Respiratory Rate 20 20 Blood Pressure 161/95 H 128/78 132/74 Pulse Oximetry 99 100 98 Intake & Output 06/01/18 06/02/18 06/02/18 18:59 06:59 18:59 Intake Total 1000 / 1000 1000 / 1000 240 / 240 Balance 1000 / 1000 1000 / 1000 240 / 240 Intake: IV 1000 / 1000 1000 / 1000 NS Inj 1,000 ML @ 100 mls/hr IV 1000 / 1000 1000 / 1000 .CONT .Q10H [facility] Rx#:[id number] Oral 240 / 240 Other: # Voids 3 3 1 <Che Arciniega - Last Filed: 06/03/18 15:19> Vital signs: Vital Signs 06/03/18 08:00 06/03/18 12:00 06/03/18 21:10 Temperature 98.1 F 97.8 F 98.1 F Pulse Rate 62 44 L 75 Respiratory Rate 20 20 18 Blood Pressure 133/79 156/80 H 128/73 Pulse Oximetry 96 99 98 06/03/18 21:15 06/03/18 21:30 06/03/18 21:45 Temperature Pulse Rate 76 75 76 Respiratory Rate 22 20 20 Blood Pressure 135/73 Pulse Oximetry 98 97 98 06/03/18 22:00 06/03/18 22:38 06/03/18 22:42 Temperature 98.0 F Pulse Rate 75 80 78 Respiratory Rate 21 Blood Pressure 124/78 127/82 Pulse Oximetry 99 06/03/18 22:45 06/03/18 23:00 06/03/18 23:15 Temperature 98.2 F Pulse Rate 78 75 68 Respiratory Rate 23 16 Blood Pressure Pulse Oximetry 100 98 98 06/03/18 23:26 12/14/18 23:48 06/04/18 00:00 Temperature 98.4 F Pulse Rate 62 64 63 Respiratory Rate 14 18 Blood Pressure 113/70 118/75 Pulse Oximetry 95 96 06/04/18 00:30 06/04/18 01:00 06/04/18 01:30 Temperature Pulse Rate 75 54 L 54 L Respiratory Rate 25 H 14 15 Blood Pressure 116/74 116/67 122/65 Pulse Oximetry 99 97 99 06/04/18 02:00 06/04/18 02:30 06/04/18 03:00 Temperature Pulse Rate 46 L 65 73 Respiratory Rate 11 L 17 24 Blood Pressure 121/64 132/76 131/96 H Pulse Oximetry 97 99 99 06/04/18 03:30 Temperature Pulse Rate 75 Respiratory Rate 23 Blood Pressure 141/81 H Pulse Oximetry 99 Intake & Output 06/03/18 06/03/18 06/04/18 06:59 18:59 06:59 Intake Total 50 / 50 5450 / 5450 Output Total 2600 / 2600 3210 / 3210 Balance -2600 / -2600 50 / 50 2240 / 2240 Weight 92.8 kg Intake: IV 50 / 50 250 / 250 Cipro 400 MG/200 ML Inj 400 mg 200 / 200 In 200 ml @ 0 mls/hr IV.SIG . [facility] Rx#:[id number] Ancef 2 GM Premix Inj 2 gm In 50 / 50 50 / 50 50 ml @ 100 mls/hr IV.SIG Q8H [facility] Rx#:[id number] Oral 0 / 0 Anesthesia Amount 5000 / 5000 Other 200 / 200 Output: Urine 250 / 250 250 / 250 Estimated Blood Loss 600 / 600 Urine Amount (Catheter) 1400 / 1400 Indwelling Urethral Catheter 1400 / 1400 Wound Drainage 2350 / 2350 960 / 960 # 1 Lower Back SUDHA Drain 70 / 70 Left Nephrostomy Tube 2050 / 2050 640 / 640 Right Nephrostomy Tube 300 / 300 250 / 250 Other: # Voids 1 Narrative: Ms simon is alert, awake. Comfortable, in no acute distress. Speech is fluent. Cranial nerve examination: pupils to be equal, round and reactive to light. Extra-ocular movements are intact. Facial motor and sensory function are normal and symmetrical. Gross hearing appears intact. Sternocleidomastoid and trapezius muscles are symmetrical. Other cranial nerves are intact. Neck is soft and supple with a good range of motion without pain. Muscle strength is normal in all muscle groups of both upper extremities. Lower extremities there is give away due to pain, 3/5 right iliopsoas with 4/5 on the left side, 4+/5 tibialis anterior and extensor halicus longus, 5/5 plantar flexion Sensory examination is intact to light touch and pin prick in both upper extremities, decreased in a L3, L4, L5 right dermatomal distribution Deep tendon reflexes are symmetrical in both upper and lower extremities. There is a bilateral plantar flexion response. Cerebellar examination is unremarkable, without deficits. Lungs are clear Heart regular rhythm is regular rate Skin warm and dry - Urinary Catheter Management Indwelling Urethral Catheter Cath placed during this visit: no <Chris Ortiz - Last Filed: 06/04/18 05:43> Assessment and Plan - Plan 52 year old female with L2 vertebral mass, with pathological fracture, most likely metastatic bladder CA Lumbar Spine CT 05/30/18 17:06 CONCLUSION: 1. Extensive lytic bone destruction of L2 with soft tissue mass, spinal stenosis and pathologic fracture as above. Primary differential diagnosis is myeloma versus metastatic disease from reported history of bladder cancer. 2. Moderate degenerative changes as above. Abdomen/Bladder Ultrasound 05/31/18 00:00 CONCLUSION: 1. Bilateral hydronephrosis, greater on the right. 2. Distended urinary bladder with wall thickening. Lumbar Spine MRI 06/01/18 00:00 CONCLUSION: 1. Large, lobulated and expansile lesion of the right side of the L2 vertebral body and posterior elements as described. There is reactive appearing enhancement adjacent epidural space and soft tissues. The right side of the L2 vertebral body has mild loss of height consistent with a pathologic fracture. Tumor-associated mild narrowing of the right lateral recess and mild right foraminal stenosis at both L1/L2 and L2/L3. 2. Degenerative changes at L4/L5 and L5/S1 as described. 3. Bilateral hydronephrosis despite presence of ureteral stents. to OR tomorrow for stabilization of pathological fracture, and resection of spine mass NPO tonight after midnight SCDs and TEDs <Che Arciniega - Last Filed: 06/03/18 15:19> - Plan I again reviewed her MRI and CT Pathologic compression fracture, L2. MRI lumbar spine shows a pathological fracture of L2 with a complex, destructive mass causing severe compresion of the neural structures. this is unstable. I discussed with her the alternatives of treatment. She understands that surgery should be a last resort. She underwent radiation therapy and chemotherapy. Her oncologist has recommended consideration to surgery. I recommend a surgical decompression with an arthrodhesis, with L1-L3 versus T12-L4 instrumental fixation depensing on her bone quality. Saloni discussed the [id number] details of the surgical procedure, its indications, alternatives, risks, and potential complications. Risks and potential complications include, but are not limited to, infection, blood loss, CSF leak, partial or complete loss of sight in one or both eyes, paresis, paralysis, permanent pain or difficulty swallowing, loss of bowel or bladder function, complications from anesthesia, blood clot, stroke, myocardial infarction, or even . The possibility of nonoperative treatment has been offered. Bladder Cancer - follows with Dr. Sen at [facility] - treated with chemo and radiation treatment Bilateral hydronephrosis 5 mm calculus and right renal pelvis Bilateral uronephrosis. Status post bilateral stents Consult to urology for evaluation of hydronephrosis despite ureteral stenting Urinalysis minimally suggestive of UTI with culture indicated -we will continue patient on Cipro for now -await urine culture and adjust treatment as needed Hypokalemia -Replaced -Repeat labs in a.m. and follow results-further replace potassium as needed Acute on chronic renal insufficiency- suspect secondary to chemotherapy and/or obstructive uropathy and/or possible UTI- no labs from before 05/30/18 and after 08/10/11 to compare -BUN 30, creatinine 1.67, estimated GFR 32 -NS at 100 cc/hr -Repeat labs in a.m. and follow results Hypertension -Clonidine 0.1 mg every 6 hours as needed systolic blood pressure greater than 160 or diastolic blood pressure greater than 100 of heart rate is greater than 60 -Monitor blood pressure trends and adjust treatments as indicated Thrombocytopenia- likely secondary to recent chemotherapy - platelet count 107,000 - repeat CBC in a.m. follow results I advisedthe patient that surgical procedures have risks, and before reaching a decision in regards to surgery, the patient should consider the alternatives, including the possibility of no treatment. she is at increased risk due to her comorbidities and compromised, debilitated condition Pulmonary: aggressive pulmonary toilette, nasotracheal suction, and breathing treatments with nebulizers. PT and OT Renal: Continue to monitor closely urine output, BUN and creatinine Endocrine: Monitor serial Acu checks and SSI as needed in detail ID Abx for UTI Protonix for stress ulcer prophylaxis Rajesh wolf and SCD's for DVT prophylaxis Point Value = 1 Point Value = 2 Point Value = 3 Point Value = 5 Age 41-60 Minor surgery BMI > 25 kg/m2 Swollen legs Varicose veins or History of unexplained or recurrent spontaneous Oral contraceptives or hormone replacement Sepsis (< 1 month) Serious lung disease, including pneumonia (< 1 month) Abnormal pulmonary function Acute myocardial infarction Congestive heart failure (< 1 month) History of inflammatory bowel disease Medical patient at bed rest Age 61-74 Arthroscopic surgery Major open surgery (> 45 min) Laparoscopic surgery (> 45 min) Malignancy Confined to bed (> 72 hours) Immobilizing plaster cast Central venous access Age >= 75 History of VTE Family history of VTE Factor V Leiden Prothrombin [id number] Lupus anticoagulant Anticardiolipin antibodies Elevated serum homocysteine Heparin-induced thrombocytopenia Other congenital or acquired thrombophilia Stroke (< 1 month) Elective arthroplasty Hip, pelvis, or leg fracture Acute spinal cord injury (< 1 month) Prophylaxis Regimen: Total Risk Factor Score Risk Level Prophylaxis Regimen 0-1 Low Early ambulation 2 Moderate Order ONE of the following: *Sequential Compression Device (SCD) *Heparin 5000 units SQ BID 3-4 Higher Order ONE of the following medications: *Heparin 5000 units SQ TID *Enoxaparin/Lovenox 40 mg SQ daily (WT < 150 kg, CrCl > 30 mL/min) *Enoxaparin/Lovenox 30 mg SQ daily (WT < 150 kg, CrCl > 10-29 mL/min) *Enoxaparin/Lovenox 30 mg SQ BID (WT < 150 kg, CrCl > 30 mL/min) AND/OR *Sequential Compression Device (SCD) 5 or more Highest Order ONE of the following medications: *Heparin 5000 units SQ TID (Preferred with Epidurals) *Enoxaparin/Lovenox 40 mg SQ daily (WT < 150 kg, CrCl > 30 mL/min) *Enoxaparin/Lovenox 30 mg SQ daily (WT < 150 kg, CrCl > 10-29 mL/min) *Enoxaparin/Lovenox 30 mg SQ BID (WT < 150 kg, CrCl > 30 mL/min) AND *Sequential Compression Device (SCD) The exam, history, and the medical decision-making described in the above note were completed with the assistance of the mid-level provider. I reviewed and agree with the findings presented. I attest that I had a [id number] encounter with the patient on the same day, and personally performed and documented my assessment and findings in the medical record. <Chris Ortiz - Last Filed: 06/04/18 05:43>
--- NOTE | 2018-06-02 15:13 | P.PNONC ---
Subjective Interval history: Patient sleeping on approach, awakens easily to voice. She is awaiting nephrostomy tube placement today. She reports she will have her procedure to her back tomorrow. She has no complaints of pain at this time. She reports she has been resting comfortably. Objective Vital Signs/Intake & Output: Vital Signs 06/01/18 15:50 06/01/18 20:00 06/02/18 00:00 Temperature 97.9 F 97.8 F 97.6 F Pulse Rate 60 66 63 Respiratory Rate 20 18 20 Blood Pressure 165/97 H 130/76 165/84 H Pulse Oximetry 96 98 96 06/02/18 04:00 06/02/18 08:00 06/02/18 11:55 Temperature 97.9 F 97.8 F 97.2 F L Pulse Rate 59 L 64 Respiratory Rate 20 20 Blood Pressure 161/95 H 128/78 132/74 Pulse Oximetry 99 100 98 Intake & Output 06/01/18 06/02/18 06/02/18 18:59 06:59 18:59 Intake Total 1000 / 1000 1000 / 1000 240 / 240 Balance 1000 / 1000 1000 / 1000 240 / 240 Intake: IV 1000 / 1000 1000 / 1000 NS Inj 1,000 ML @ 100 mls/hr IV 1000 / 1000 1000 / 1000 .CONT .Q10H [facility] Rx#:[id number] Oral 240 / 240 Other: # Voids 3 3 1 Result Diagrams: 05/31/18 07:36 06/02/18 11:38 Laboratory Results: Laboratory Results - last 24 hr 06/02/18 11:38 Sodium 140 Potassium 3.4 L Chloride 106 Carbon Dioxide 21.5 Anion Gap 13 BUN 30 H Creatinine 1.37 H Estimated GFR 41 L Random Glucose 145 H Calcium 8.1 L Culture Results: Microbiology 05/30/18 18:37 Urine Culture - Final Clean Catch Urine 50-100,000 cfu/mL mixed gram positive xenia (probable contaminants) Imaging Studies: Impressions Lumbar Spine MRI 06/01/18 00:00 CONCLUSION: 1. Large, lobulated and expansile lesion of the right side of the L2 vertebral body and posterior elements as described. There is reactive appearing enhancement adjacent epidural space and soft tissues. The right side of the L2 vertebral body has mild loss of height consistent with a pathologic fracture. Tumor-associated mild narrowing of the right lateral recess and mild right foraminal stenosis at both L1/L2 and L2/L3. 2. Degenerative changes at L4/L5 and L5/S1 as described. 3. Bilateral hydronephrosis despite presence of ureteral stents. Medications: Active Medications Generic Name Dose Route Start Last Admin Trade Name Freq PRN Reason Stop Dose Admin Ciprofloxacin HCl 500 mg 05/31/18 06:00 06/02/18 06:08 Cipro PO 500 mg BID@0600,1800 [facility] Administration Dexamethasone Sodium Phosphate 2 mg 05/31/18 06:00 06/02/18 12:53 Decadron Inj IV.PUSH Not Given Q6H [facility] Famotidine 10 mg 06/01/18 21:00 06/02/18 08:48 Pepcid Pf Inj IV.PUSH 10 mg Q12HR [facility] Administration Sodium Chloride 1,000 mls @ 100 mls/hr 05/31/18 06:00 06/01/18 22:50 Ns Inj IV.CONT 100 mls/hr .Q10H [facility] Administration Metoprolol Succinate 25 mg 06/02/18 09:25 06/02/18 09:33 Toprol Xl PO 25 mg DAILY [facility] Administration Oxycodone/Acetaminophen 1 tab 05/30/18 18:58 06/02/18 06:08 Percocet 5/325 Mg PO 1 tab Q6H PRN Administration PAIN SCALE 3 TO 5 Senna/Docusate Sodium 1 tab 05/30/18 21:00 06/02/18 09:32 Corine-Colace PO Not Given BID [facility] Sodium Chloride 2 ml 05/30/18 21:00 06/02/18 08:36 Ns Flush IV.FLUSH Not Given BID [facility] Objective Remarks: GENERAL: Well-nourished, well-developed female patient, in no acute distress. SKIN: Warm and dry. HEAD: Normocephalic. EYES: No scleral icterus. No injection or drainage. NECK: Supple, trachea midline. CARDIOVASCULAR: Regular rate and rhythm without murmurs. RESPIRATORY: Breath sounds equal bilaterally. No accessory muscle use. GASTROINTESTINAL: Abdomen soft, non-tender, nondistended. EXTREMITIES: No cyanosis, or edema. MUSCULOSKELETAL: Adequate muscle tone. NEUROLOGICAL: No obvious focal deficit. Sleeping, awakens easily to voice, oriented x3. PSYCHIATRIC: Appropriate mood and affect; insight and judgment normal. Assessment/Plan - Plan Recommendations: 1. Bladder cancer, bladder hydronephrosis pending nephrostomy tube placement today. 2. Possible neurosurgical intervention tomorrow. 3. Continue supportive care. - Attending Statement Pt doing well. Creatinine improving. Percutaneous nephrostomies today. Await neurosurg decision. MSI and PDL-1 test results from bladder tumor pending. D/w pt and answered all her questions.
[2018-06-02] MEDS: Sod Chloride 0.9% Inj 1,000 ML IV.CONT SCH ×2 (15:34→17:48)
--- NOTE | 2018-06-02 15:47 | P.RAD ---
Post Procedure Progress Note - Procedure Information Procedure Date: 06/02/18 Supervising Radiologist: Leonides Bhakta MD Estimated blood loss (mL): 5 Anesthesia: Conscious Sedation - Plan of Activity Patient to Unit: ROPU Patient Condition: Good See PACS Report for procedural detail/treatment.
--- NOTE | 2018-06-02 18:47 | IR ---
EXAM DATE: 06/02/2018 4:04 PM EST AGE/SEX: 52 years / Female INDICATIONS: Patient with a history of bladder cancer. CLINICAL DATA: This is the patient's initial encounter. Patient reports that signs and symptoms have been present for 4 - 6 days and indicates a pain score of 5/10. MEDICAL/SURGICAL HISTORY: Carcinoma, bladder. Hypertension. CVA section. Cholecyste ctomy. Ureteral stent COMPARISON: No prior exams available for comparison. FLUORO TIME (min): 5.29 IMAGE SERIES: 5 SEDATION TIME (min): 30 CONTRAST (cc): 30 Omnipaque (iohexol) 350 MEDICATION(S): 3mg midazolam (Versed) IV 150mcg fentanyl (Sublimaze) IV DEVICE(S): 8 [place] nephrostomy catheter . . PROCEDURE : 1. Ultrasound-guided puncture of the kidney. 2. Antegrade percutaneous pyelogram. 3. Percutaneous nephrostomy placement. 4. Conscious sedation with continuous EKG and oximetry monitoring. The risks, benefits and alternatives to the procedure were explained and verbal and written consent w as obtained. The site was prepped in sterile fashion. Full sterile technique was used, including ca p, mask, sterile gloves and gown and a large sterile sheet. Hand hygiene and 2% chlorhexidine and/or betadine/alcohol prep was utilized per protocol for cutaneous antisepsis. Sterile gel and sterile probe cover were utilized for ultrasound guidance. The skin and subcutaneous tissues were infiltrate d with local anesthetic solution. With ultrasound and fluoroscopic guidance the selected kidney was punctured and a percutaneous antegr rony pyelogram was performed demonstrating a dilated collecting system. Serial dilatation was perform ed and a prescribed nephrostomy tube was placed within the renal pelvis and sutured in place. Conscious sedation was performed with the prescribed dosages and duration as above in the presence of an independent trained radiology nurse to assist in the monitoring of the patient. EKG and oximetry remained stable throughout the procedure. The patient tolerated the procedure well and there were n o complications. The patient was sent to post anesthesia recovery in stable condition. CONCLUSION: 1. Uncomplicated nephrostomy tube placement as above. Electronically signed by: Leonides Bhakta MD Board Certified Radiologist 06/02/2018 6:46 PM [facility]
[2018-06-03] MEDS: Ciprofloxacin 500 MG Tablet PO SCH ×2 (06:00→23:03)
[2018-06-03 06:13] LABS: Baso % (Auto) 0.1 % (0.0-2.0); Hemoglobin 11.5 gm/dL (11.6-15.3); Lymph % (Auto) 9.5 % (9.0-44.0); Mean Corpuscular HGB Conc 35.9 % (32.0-36.0); Mean Corpuscular Hemoglobin 35.2 pg (27.0-34.0); Mono # (Auto) 1.3 th/mm3 (0.0-0.9); Mono % (Auto) 11.7 % (0.0-8.0); Neut # (Auto) 8.6 th/mm3 (1.8-7.7); Neut % (Auto) 78.7 % (16.0-70.0); Platelet Count 222 th/mm3 (150-450); Red Blood Count 3.27 mil/mm3 (4.00-5.30); Red Cell Distribution Width 14.5 % (11.6-17.2); White Blood Count 10.9 th/mm3 (4.0-11.0)
[2018-06-03] MEDS: Sod Chloride 0.9% Inj 1,000 ML IV.CONT SCH ×3 (06:32→23:09)
[2018-06-03 06:35] LABS: Calcium 8.7 mg/dL (8.5-10.1); Carbon Dioxide 24.7 meq/L (21.0-32.0); Potassium 3.8 meq/L (3.5-5.1)
[2018-06-03] MEDS ORDERED: Vancomycin Inj 1,000 MG in Sodium Chlor 0.9% Inj 250 ML IV.SIG SCH (08:00)
[2018-06-03] MEDS ORDERED: ceFAZolin 2 GM Premix Inj 2 GM/50 ML PIGGYBACK IV.SIG PRN (08:00)
[2018-06-03] MEDS ORDERED: Sod Chloride 0.9% Inj 1,000 ML IV.CONT SCH (08:00)
[2018-06-03 08:02] LABS: Lymphocytes 15 % (9-44); Metamyelocytes 3 % (0-1); Monocytes 9 % (0-8); Myelocytes 3 % (0-0); Platelet Estimate Normal (Normal); Promyelocyte 1 % (0-0); Toxic Granulation 1+
[2018-06-03] MEDS: Famotidine PF Inj 20 MG/2 ML Vial IV.PUSH SCH ×2 (09:02→23:09)
[2018-06-03] MEDS: Senna/Docusate Sodium 8.6/50 MG Tablet PO SCH (09:02)
--- NOTE | 2018-06-03 10:17 | P.PNIM ---
Subjective Interval history: Follow-up vertebral fracture L2 compression fracture, bladder cancer, hydronephrosis status post bilateral nephrostomy tube placement yesterday 06/02/18, and hypertension. Patient seen and examined laying in bed, stated n.p.o. awaiting for back surgery today. Also address concern on how surgeon is going to fix her back, concern on wanting to have to be able to do an MRI due to her bladder cancer. Patient states that pain controlled by pain medication. Patient expressed concern on nephrostomy tubes the left draining more than the right. Patient complains of discomfort in the right lower back however controlled by pain medication. Patient denies headache or dizziness, chest pain or shortness of breath, abdominal pain, nausea or vomiting, diarrhea or constipation. Patient stated had a bowel movement today. Patient denies any fever or chills. Physical Exam Vital signs: Last Vital Signs Temp 98.1 F 06/03/18 08:00 Pulse 62 06/03/18 08:00 Resp 20 06/03/18 08:00 BP 133/79 06/03/18 08:00 Pulse Ox 96 06/03/18 08:00 Intake & Output 06/01/18 06/02/18 06/03/18 06/04/18 06:59 06:59 06:59 06:59 Intake Total 1999 240 / 240 Output Total 2600 / 2600 Balance 1999 -2360 / -2360 Weight 90.591 kg Narrative: GENERAL: Well-developed, well-nourished, young looking female in no apparent distress SKIN: Warm and dry. HEAD: Atraumatic. Normocephalic. EYES: Pupils equal and round. No scleral icterus. No injection or drainage. ENT: No nasal bleeding or discharge. Mucous membranes pink and moist. NECK: Trachea midline. No JVD. CARDIOVASCULAR: Regular rate and rhythm. RESPIRATORY: No accessory muscle use. Clear to auscultation. Breath sounds equal bilaterally. GASTROINTESTINAL: Abdomen soft, non-tender, nondistended. Hepatic and splenic margins not palpable. : Bilateral nephrostomy tube, left side drainage with hematuria noted. Right side draining dark yellow urine. Bilateral dressings intact no redness or drainage at the site. MUSCULOSKELETAL: Extremities without clubbing, cyanosis, or edema. Lumbar paraspinal tenderness with palpation and slight ecchymosis NEUROLOGICAL: Awake and alert and oriented x3. No obvious cranial nerve deficits. Motor grossly within normal limits. Generalized weakness moving all 4 extremities. Normal speech. PSYCHIATRIC: Appropriate mood and affect; insight and judgment normal. Results Labs CBC & Chem 7: 06/03/18 05:37 06/03/18 05:37 Imaging Imaging: Impressions Nephrostomy 06/02/18 00:00 CONCLUSION: 1. Uncomplicated nephrostomy tube placement as above. Nephrostomy 06/02/18 00:00 CONCLUSION: 1. Uncomplicated nephrostomy tube placement as above. 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 Sen, hydronephrosis s/p bilateral stent placement by Dr. Hannah, hypertension, and intermittent GERD who presented to the emergency room complaining of back pain and outpatient MRI demonstrating compression fracture. 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 Posterior bulging of the metastasis and extraosseous disease extension into the ventral and right lateral epidural spaces at L2 contributing to worsened moderate spinal canal stenosis. Effacement of the right subarticular recess with compression of the right L2 nerve root. There was also extraosseous extension of the pathologic soft tissue into the right paravertebral soft tissues at the L2 level with surrounding edema. Pathological soft tissue extends into the L2-L3 neural foramen with associated moderate right neural foraminal stenosis and abutment/ partial compression of the right foraminal L2 nerve root. -Consult neurosurgery-Dr. Ortiz, appreciate recommendation. Recommended MRI of the lumbar spine. -N.p.o. after midnight except for meds -Dexamethasone 2 mg IV every 6 hours (patient refusing 4 mg dosing) -Percocet as needed for pain with morphine IV for breakthrough pain -MRI recently done in [facility] on 05/27/18, copy of report in the chart. Copy of the disc will be brought by family today. -MRI lumbar spine 06/01/18: Large lobulated lesion on the side of L2 , tumor associated mild narrowing of L1-L2 and L2-L3 -Neurosurgeon/Dr. Ortiz plan for surgery today for stabilization of pathological fracture, and resection of spine mass Bladder Cancer Bilateral hydronephrosis 5 mm calculus and right renal pelvis Bilateral ureteral stents Bacteuria - follows with Dr. Sen at [facility] - treated with chemo and radiation x 1 treatment -Consult to urology for evaluation of hydronephrosis despite ureteral stenting -Patient sees Dr. Hannah at [facility] -Urinalysis minimally suggestive of UTI with culture indicated, awaiting results - continue on Cipro -awaiting urine culture and adjust treatment as needed -Abdomen/bladder ultrasound:. Bilateral hydronephrosis, greater on the right. Distended urinary bladder with wall thickening. -plan to place nephrostomy tube on right side prior discussion with Urology Dwight ROSAS -Oncology consult appreciated, Dr. Sen: Recommended to follow-up with [facility] for evaluation and possible clinical trial treatment -Status post bilateral nephrostomy tube placement by interventional radiology on 06/02/18 Acute on chronic renal insufficiency Hypokalemia -Likely secondary to chemotherapy and/or obstructive uropathy and/or possible UTI no labs from before 05/30/18 and after 08/10/11 to compare -Creatinine improving 1.14 today -Continue NS at 100 cc/hr -Follow renal indicis -Avoid nephrotoxic agents -Replaced KCL p.o., K level improved, replace as needed -Repeat labs in a.m. and follow results-further replace potassium as needed -Nephrology consulted, appreciate recommendation Hypertension Uncontrolled, blood pressure elevated, improving -Previous history of high blood pressure however stopped taking medication due to controlled blood pressure recently -Likely related to pain -Continue clonidine 0.1 mg every 6 hours as needed systolic blood pressure>160 or diastolic blood pressure >100 -Changed to metoprolol succinate, she preferred once a day dose. However discussed the cost of the medication more than the twice a day dose. Patient agreed -Monitor blood pressure trends and adjust treatments as indicated Thrombocytopenia- likely secondary to recent chemotherapy - platelet count 101,000 , improving to 222 today - repeat CBC, follow results DVT prophylaxis -SCDs -chemoprophylaxis not recommended until neurosurgical and urology evaluations are complete secondary to possible surgery Discharge Planning: Plan for discharge when cleared with Neurosurgeon and Urology Progress Note: Quality VTE Deep Vein Thrombosis/Pulmonary Embolism Present on Admission: No
[2018-06-03] MEDS ORDERED: Bupivacaine/Epinephrine PF Inj 0.5% 30 ML Vial ONE (15:06)
[2018-06-03] MEDS ORDERED: Thrombin Topical Soln 5,000 UNIT Vial TOPICAL ONE (15:06)
[2018-06-03] MEDS ORDERED: Gelatin 12 MM/7 MM Topical Foam ONE (15:06)
[2018-06-03] MEDS ORDERED: Propofol Inj 500 MG/50 ML Vial ONE (15:12)
[2018-06-03] MEDS ORDERED: fentaNYL Citrate Inj 250 MCG/5 ML Ampul ONE (15:13)
[2018-06-03] MEDS ORDERED: fentaNYL Citrate Inj 100 MCG/2 ML Ampul ONE ×2 (15:14→21:29)
[2018-06-03] MEDS ORDERED: Artificial Tears Opth Oint 3.5 GM Tube ONE (15:14)
[2018-06-03] MEDS ORDERED: Ketamine Inj 50 MG/5 ML Syringe IV.PUSH ONE (15:15)
--- NOTE | 2018-06-03 15:59 | P.PNNP ---
Subjective Interval history: Patient is alert, no SOB, mild abd. pain. Physical Exam Vital signs: Vital Signs 06/02/18 16:10 06/02/18 16:25 06/02/18 20:00 Temperature 98.4 F Pulse Rate 67 78 60 Respiratory Rate 20 20 20 Blood Pressure 150/95 H 148/93 H 135/75 Pulse Oximetry 99 96 98 06/03/18 00:00 06/03/18 04:00 06/03/18 08:00 Temperature 97.9 F 97.9 F 98.1 F Pulse Rate 57 L 46 L 62 Respiratory Rate 20 20 20 Blood Pressure 141/88 H 148/86 H 133/79 Pulse Oximetry 100 99 96 06/03/18 12:00 Temperature 97.8 F Pulse Rate 44 L Respiratory Rate 20 Blood Pressure 156/80 H Pulse Oximetry 99 Intake & Output 06/02/18 06/03/18 06/03/18 18:59 06:59 18:59 Intake Total 240 / 240 Output Total 2600 / 2600 Balance 240 / 240 -2600 / -2600 Intake: Oral 240 / 240 Output: Urine 250 / 250 Wound Drainage 2350 / 2350 Left Nephrostomy Tube 2049 / 0 Right Nephrostomy Tube 300 / 300 Other: # Voids 1 Narrative: GENERAL: Well-developed, well-nourished, young looking female in no apparent distress SKIN: Warm and dry. HEAD: Atraumatic. Normocephalic. EYES: Pupils equal and round. No scleral icterus. No injection or drainage. ENT: No nasal bleeding or discharge. Mucous membranes pink and moist. NECK: Trachea midline. No JVD. CARDIOVASCULAR: Regular rate and rhythm. RESPIRATORY: No accessory muscle use. Clear to auscultation. Breath sounds equal bilaterally. GASTROINTESTINAL: Abdomen soft, non-tender, nondistended. Hepatic and splenic margins not palpable. : Bilateral nephrostomy tube, left side drainage with hematuria noted. Right side draining dark yellow urine. Bilateral dressings intact no redness or drainage at the site. MUSCULOSKELETAL: Extremities without clubbing, cyanosis, or edema. Lumbar paraspinal tenderness with palpation and slight ecchymosis NEUROLOGICAL: Awake and alert and oriented x3. No obvious cranial nerve deficits. Motor grossly within normal limits. Generalized weakness moving all 4 extremities. Normal speech. PSYCHIATRIC: Appropriate mood and affect; insight and judgment normal. Assessment and Plan - Assessment (1) Renal insufficiency Code(s): N28.9 - Disorder of kidney and ureter, unspecified Status: Acute Plan: Patient with bilateral bilateral Nephrostomy. Now urine is getting clear. Creatinine is improving, now it is 1.1. Avoid Nephrotoxins. Follow the urine out put and BMP. (2) Bladder cancer Code(s): C67.9 - Malignant neoplasm of bladder, unspecified Status: Acute Qualifiers: Bladder location: unspecified site Qualified Code(s): C67.9 - Malignant neoplasm of bladder, unspecified Plan: Extensive lytic bone destruction of L2 with soft tissue mass, spinal stenosis and pathologic fracture as above. Metastatic disease from reported history of bladder cancer. - follows with Dr. Sen at [facility] - treated with chemo and radiation treatment (3) Pathologic compression fracture of lumbar vertebra Code(s): M48.56XA - Collapsed vertebra, not elsewhere classified, lumbar region , initial encounter for fracture Status: Acute Qualifiers: Encounter type: initial encounter Qualified Code(s): M48.56XA - Collapsed vertebra, not elsewhere classified, lumbar region, initial encounter for fracture Plan: Neurosurgical consulted, surgery planned for tomorrow. (4) Hypertension Code(s): I10 - Essential (primary) hypertension Status: Acute Plan: Hypertensive. On metoprolol and has PRN clonidine will monitor.
--- NOTE | 2018-06-03 16:11 | ECG ---
Date Performed: 06/03/2018 Time Performed: 11:37:20 PTAGE: 52 years EKG: SINUS BRADYCARDIA WITH OCCASIONAL SUPRAVENTRICULAR PREMATURE COMPLEXES MINIMAL VOLTAGE CRIT ERIA FOR LVH, CONSIDER NORMAL VARIANT BORDERLINE ECG PREVIOUS TRACING : 08/10/2011 14.13 Compared to previous tracing, heart rate has slowed. DOCTOR: Adalberto Gilliam Interpretating Date/Time 06/03/2018 16:10:33
[2018-06-03] MEDS ORDERED: Ciprofloxacin 400 MG/200 ML 400 MG/200 ML PIGGYBACK IV.SIG ONE (17:45)
[2018-06-03] MEDS ORDERED: ceFAZolin 2 GM Premix Inj 2 GM/50 ML PIGGYBACK IV.SIG ONE (19:28)
[2018-06-03 19:48] LABS: ABG Base Excess -3.9 mmol/L (-2-2); ABG PCO2 32 mmHg (38-42); ABG PO2 271 mmHG (61-120)
[2018-06-03] MEDS ORDERED: Gelatin Size 100 Topical Foam TOPICAL ONE (19:56)
[2018-06-03] MEDS ORDERED: Aluminum/Magnesium/Simethacone Susp 30 ML UDC PO PRN (21:18)
[2018-06-03] MEDS ORDERED: Morphine Sulfate Inj 2 MG/ML Vial IV.PUSH PRN (21:18)
[2018-06-03] MEDS ORDERED: Bisacodyl 10 MG Supp RECTAL PRN (21:18)
[2018-06-03] MEDS ORDERED: Naloxone Inj 0.4 MG/ML Vial IV.PUSH PRN (21:21)
[2018-06-03] MEDS ORDERED: HYDROmorphone PCA Inj 6 MG/30 ML PCA.VIAL PCA PRN (21:21)
--- NOTE | 2018-06-03 21:22 | P.OP ---
Preoperative Diagnosis: Pathological L2 fracture with neural compression Postoperative Diagnosis: Pathological L2 fracture with neural compression Date of procedure: 06/03/18 Procedure: Open reduction and internal fixation of pathological L2 fracture, L2 laminectomy resection of metastatic neoplasm, L1-L3 segmental instrumental fixation using transpedicular screws and rods, L1-2, L2-3 posterolateral fusion using autologous bone with demineralized bone matrix, microsurgical dissection Anesthesia: GETA Surgeon: Chris Ortiz MD [employer] Technicians: Leyda Bowman Pathology: other (metastatic tumor) Operation and Findings: INDICATIONS FOR THE SURGICAL PROCEDURE Ms Allison is a 52 year-old female who presented with severe mechanical back pain and weakness related to a pathological L2 spinal fracture and a destructive mass, causing severe compression of the neural structures and bony destruction with spinal instability. She has undergone radiation treatment and chemotherapy and she had multiple comorbidities, which increase her surgical risk. She has failed medical nonsurgical management. A surgical decompression with reduction of the fracture and arthrodhesis were indicated as the most appropriate treatment. The [id number] details of the procedure, indications, alternatives, risks and potential complications were fully discussed with the patient. The patient fully understood. All questions were answered. No guarantees were given. The patient voiced requesting the procedure and provided informed consents. The patient had been offered the alternative of delaying the procedure and continuing with nonsurgical management. DETAILS OF THE SURGICAL PROCEDURE Prior to the procedure,the surgical incision was marked in the preoperative surgical holding room, and the procedure, risks, and potential complications revisited with the patient. Placement of electrodes for intraoperative neurophysiological monitoring was completed. The patient was taken to the operative room, and following induction of general anesthesia, endotracheal intubation was performed. A Montano catheter bilateral Rajesh and sequential compression devices were placed and kept throughout the procedure. The patient was carefully rolled into the prone position over a Candelario table with a gell rolls. All pressure points were carefully padded with eggcrate mattress. The eyes were tapped shut after ointment was applied by the anesthesiologist to prevent corneal abrasion. A Mauri hugger was placed over the expossed lower body to maintain control of the core body temperature. The electrophysiological team placed the needles and electrodes in their proper location and baseline SSEP's and motor evoked potentials were registered. The thoracic lumbar region was prepped and draped in the usual sterile fashion. A localizing X-ray was performed with the C-arm and the fracture was localized. Two paramedian incisions were outlined from the spinous process of T12 down to L4. SURGICAL APPROACH Once the patient was positioned, a localizing cross-table lateral and AP x-ray was performed with a C-arm. Two paramedian small incisions were outlined over the pedicles on the skin, approximately 3cm from the midline. The skin incisions were made with a #10 blade. Small bleeders were controlled with the cautery. The dissection was then carried out into deeper planes and through the thoracolumbar fascia with a Bovie. The intermuscular septum was identified and the muscles were blunted dissected along the septum. The facets and transverse process of L1, L2, L3 were exposed and the proper anatomical landmarks were identified. A microsurgical self-retaining retractor was placed on the incision , and a localizing lateralizing cross-table x-ray was performed with an instrument underneath a lamina of the lumbar spine. INSTRUMENTAL FIXATION At this point in the procedure, placement of bilateral transpedicular screws was necessary for stabilization of the spine. Initially, the entry point for the screw was selected anatomically at the junction of the facet, with the transverse process, and the pars interarticularis at L1, L2, L3. This was started with a Giamshetti needle, followed by the use of K wire. A tap was used to create the threads for the screws. Finally bilateral transpedicular screws were carefully placed bilaterally at L1, L2, L3. under fluoroscopic visualization. An appropriate purchase was achieved with all screws. The position of each screw was assessed anatomically with an AP, lateral, oblique Xrays. An intraoperative scan view of the spine was then performed using the iso -centric c-arm. Each screw was then assessed electrophysiologically stimulating each screw with a nerve stimulator. SURGICAL DECOMPRESSION There was severe mass effect with compression of the neural structures. In order to relieve neural compression, it was necessary to perform a decompressive laminectomy, with decompression of the spinal canal and lateral reces. TL1, L2, L3.here was destruction of the right facet joints, pedicle, and vertebral body L2 due to the metastatic mass. At this point of the procedure the operative microscope was draped in the usual sterile fashion and brought to the field. The rest of the surgical procedure was performed using microdissection technique with the exception of the closure. Under the operating microscope, a decompressive laminectomy was carried out at L2 as follow: The laminae, base of the spinous processes and facets were carefully drilled exposing the ligamentum flavum. The facets on the right side were abnormal aL1, L2, L3.nd destroyed by the invassice cancerL1, L2 , L3., which had a complex morphology, and was causing gross mechanical instability. A large destructive mass was readily identified, which was causing severe compression of the neural structures exiting L2 nerve root. A complete facetectomy was necessary as the right sided facets were completely replaced by tumor, resulting in further mechanical instability. The superior free border of the ligamentum flavum was elevated with a ligament dissectoFlavum and the tumor were very adherent to the dural sac and during the dissection, ans extreme care was taken during the dissection. The exiting right L2 nerve root was identified, and a wide foraminotomy was performed with a Kerrison in their trajectory towards the neural foramen. Epidural veins located laterally to the dural sac were coagulated with the bipolar cautery, and then incised using microscissors. Gentle medial retraction of the dural sac allowed me to expose the L2 vertebral body, which was partially replaced by tumor. The tumor was very complex and contained a cystic component filled with clear fluid. I was unable to corroborate if the cystic component was connected to the dural sac and CSF, but it did not appeared to be so. The cystic component was opened and a large amount of clear fluid was evacuated. / . . , Upon completion of the tumor resection an excellent decompression of the neural structures was achieved. Increased motion was noted thorough the procedure, which was consistent with mechanical instability . Posterolateral fusion Then, the lateral gutters of the spine, facets and transverse processes were carefully decorticated with a TPS drill in preparation for the posterior lateral fusion. The incision was thoroughly irrigated with antibiotic solution. The posterolateral fusion was performed by carefully packing the gutters of the spine with a autologous iliac crest bone graft combined with demineralized bone matrix. Completion of the Procedure The rods were brought to the field. Sequential application of the cap was achieved which allowed for further correction of the kyphosis. Final tightening of all screws was achieved with a torque wrench. m The incision was thoroughly irrigated with several liters of antibiotic solution. The decompression was reassessed with an nerve hook and found to be appropriate. A 10 mm Candelario-Liz drain was left on the epidural space and was then externalized through a separate stab incision. The incision was then closed in layers. 0 Vicryl with interrupted sutures were used to close the thoracolumbar fascia. The superficial fascia was closed with 0 Vicryl sutures. Three-0 Vicryl was used to close the subcutaneous tissue. The skin was closed with running Ethilon The drain was secured 3-0 nylon. At the end of the procedure the sponges, needles, and instrument counts were all correct. Estimated blood loss was 400cc's. No complications occurred. The patient received prophylactic antibiotics. The patient was then extubated and transferred to the recovery room in stable condition. The entire procedure was performed using electrophysiological monitor of the electromyogram, evoked potential and sphincters. No intraoperative abnormalities were detected.
[2018-06-03] MEDS ORDERED: HYDROmorphone PCA Inj 6 MG/30 ML PCA.VIAL PCA ONE (21:30)
[2018-06-03 21:47] LABS: Baso % (Auto) 0.2 % (0.0-2.0); Hematocrit 29.1 % (35.0-46.0); Hemoglobin 10.4 gm/dL (11.6-15.3); Lymph # (Auto) 0.8 th/mm3 (1.0-4.8); Lymph % (Auto) 3.6 % (9.0-44.0); Mean Corpuscular HGB Conc 35.7 % (32.0-36.0); Mean Corpuscular Hemoglobin 34.8 pg (27.0-34.0); Mean Corpuscular Volume 97.6 fL (80.0-100.0); Mean Platelet Volume 7.7 fL (7.0-11.0); Mono # (Auto) 0.8 th/mm3 (0.0-0.9); Mono % (Auto) 3.7 % (0.0-8.0); Neut # (Auto) 19.8 th/mm3 (1.8-7.7); Neut % (Auto) 92.5 % (16.0-70.0); Platelet Count 296 th/mm3 (150-450); Red Blood Count 2.98 mil/mm3 (4.00-5.30); Red Cell Distribution Width 14.6 % (11.6-17.2); White Blood Count 21.4 th/mm3 (4.0-11.0)
--- NOTE | 2018-06-03 21:48 | XR ---
EXAM DATE: 06/03/2018 9:45 PM EST AGE/SEX: 52 years / Female INDICATIONS: Central line placement. CLINICAL DATA: This is the patient's initial encounter. Patient reports that signs and symptoms have been present for 1 day and indicates a pain score of 0/10. MEDICAL/SURGICAL HISTORY: . Carcinoma, bladder. Hypertension. Cerebrovascular accident. Metast asis to the spinal column. section. Cholecystectomy. Spinal lesion biopsy. Cystoscopy. Urete ral stent. . COMPARISON: [facility], CHEST SINGLE AP, 08/10/2011. . FINDINGS: The lungs are clear without infiltrate, nodule, or mass. There is no appreciable pleural effusion fo r technique. Heart and mediastinum are unremarkable. Right IJ line is present with tip overlapping the expected region of the SVC. Left subclavian Infuse -a-Port is present with tip overlapping the expected region of the SVC. No definite pneumothorax is seen for technique. CONCLUSION: No acute cardiopulmonary disease. Electronically signed by: Lacy Breen MD Board Certified Radiologist 06/03/2018 9:46 PM EST
[2018-06-03 21:59] LABS: Calcium 7.9 mg/dL (8.5-10.1); Carbon Dioxide 23.6 meq/L (21.0-32.0)
[2018-06-03 22:48] LABS: Lymphocytes 5 % (9-44); Metamyelocytes 3 % (0-1); Monocytes 3 % (0-8); Myelocytes 3 % (0-0)
[2018-06-03 22:49] LABS: Platelet Estimate Normal (Normal); Platelet Morphology Normal (Normal); RBC Morphology Normal (Normal); Toxic Granulation 1+
[2018-06-04] MEDS: ceFAZolin 2 GM Premix Inj 2 GM/50 ML PIGGYBACK IV.SIG SCH ×3 (01:45→17:42)
[2018-06-04] MEDS: Ciprofloxacin 500 MG Tablet PO SCH ×2 (06:36→17:43)
[2018-06-04] MEDS: Senna/Docusate Sodium 8.6/50 MG Tablet PO SCH ×2 (08:35→22:03)
[2018-06-04] MEDS: Famotidine PF Inj 20 MG/2 ML Vial IV.PUSH SCH ×2 (08:36→21:58)
[2018-06-04] MEDS: Sod Chloride 0.9% Inj 1,000 ML IV.CONT SCH ×2 (08:36→17:41)
--- NOTE | 2018-06-04 09:36 | P.PNIM ---
Subjective Interval history: Follow-up vertebral fracture L2 compression fracture, bladder cancer, hydronephrosis status post bilateral nephrostomy tube placement yesterday 06/02/18, and hypertension. Patient is complaining of a lot of pain from bilateral nephrostomy tube insertion areas. No fever, chills. She is requesting to see if those tubes can be discontinued. Physical Exam Vital signs: Last Vital Signs Temp 98.2 F 06/04/18 08:00 Pulse 78 06/04/18 09:00 Resp 20 06/04/18 09:00 BP 127/84 06/04/18 09:00 Pulse Ox 100 06/04/18 09:00 Intake & Output 06/02/18 06/03/18 06/04/18 06/05/18 06:59 06:59 06:59 06:59 Intake Total 1999 240 / 240 5500 / 5500 950 / 950 Output Total 2600 / 2600 3470 / 3470 395 / 395 Balance 1999 -2360 / -2360 2029 / 2029 555 / 555 Weight 95 kg GENERAL: Alert, oriented x 3, NAD. SKIN: Warm and dry. HEAD: Normocephalic. EYES: No scleral icterus. No injection or drainage. NECK: Supple, trachea midline. No JVD or lymphadenopathy. CARDIOVASCULAR: Regular rate and rhythm without murmurs, gallops, or rubs. RESPIRATORY: Breath sounds equal bilaterally. No accessory muscle use. GASTROINTESTINAL: Abdomen soft, non-tender, nondistended. Bilateral Nephrostomy tubes in place. MUSCULOSKELETAL: No cyanosis, or edema. BACK: Nontender without obvious deformity. No CVA tenderness. Urinary Catheter Management Indwelling Urethral Catheter: Cath placed during this visit: no Results Labs CBC & Chem 7: 06/03/18 21:28 06/03/18 21:28 Imaging Imaging: Impressions Chest X-Ray 06/03/18 00:00 CONCLUSION: No acute cardiopulmonary disease. 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 by Dr. Sen, hydronephrosis s/p bilateral stent placement by Dr. Hannah, hypertension, and intermittent GERD who presented to the emergency room complaining of back pain and outpatient MRI demonstrating compression fracture. Bladder cancer with possible metastasis to spinal column Pathologic compression fracture, L2 Myeloma vs Metastatic Disease -MRI at [facility] showed interval increase in size of enhancing destructive metastasis centered within the posterior L2 -Dexamethasone 2 mg IV every 6 hours (patient refusing 4 mg dosing) -Percocet as needed for pain with morphine IV for breakthrough pain -MRI lumbar spine 06/01/18: Large lobulated lesion on the side of L2 , tumor associated mild narrowing of L1-L2 and L2-L3 -Neurosurgeon Dr. Ortiz performed ORIF of L2, L2 laminectomy on 06/03/2018. Bladder Cancer Bilateral hydronephrosis 5 mm calculus and right renal pelvis Bilateral ureteral stents -follows with Dr. Sen at [facility] - treated with chemo and radiation x 1 treatment -Oncology consult appreciated, Dr. Sen: Recommended to follow-up with [facility] for evaluation and possible clinical trial treatment -Status post bilateral nephrostomy tube placement by interventional radiology on 06/02/18 -Patient will likely need palliative chemo. Acute on chronic renal insufficiency Hypokalemia - resolved. -Creatinine improved to 1.14. Hypertension -Clonidine PRN. Thrombocytopenia- likely secondary to recent chemotherapy -Resolved. Currently around 296K. Full code. SCDs. Progress Note: Quality VTE Deep Vein Thrombosis/Pulmonary Embolism Present on Admission: No
[2018-06-04] MEDS ORDERED: LORazepam 0.5 MG Tablet PO PRN (12:00)
--- NOTE | 2018-06-04 12:14 | P.PNONC ---
Subjective Interval history: Afebrile Patient desperately asking for bilateral nephrostomy tubes to be removed Per TUBING ASSEMBLER she has been quite anxious this morning No bleeding Objective Vital Signs/Intake & Output: Vital Signs 06/03/18 21:10 06/03/18 21:15 06/03/18 21:30 Temperature 98.1 F Pulse Rate 75 76 75 Respiratory Rate 18 22 20 Blood Pressure 128/73 135/73 Pulse Oximetry 98 98 97 06/03/18 21:45 06/03/18 22:00 06/03/18 22:38 Temperature 98.0 F Pulse Rate 76 75 80 Respiratory Rate 20 21 Blood Pressure 124/78 Pulse Oximetry 98 06/03/18 22:42 06/03/18 22:45 06/03/18 23:00 Temperature 98.2 F Pulse Rate 78 78 75 Respiratory Rate 23 Blood Pressure 127/82 Pulse Oximetry 99 100 98 06/03/18 23:15 06/03/18 23:26 06/03/18 23:48 Temperature Pulse Rate 68 62 64 Respiratory Rate 16 14 Blood Pressure 113/70 Pulse Oximetry 98 95 06/04/18 00:00 06/04/18 00:30 06/04/18 01:00 Temperature 98.4 F Pulse Rate 63 75 54 L Respiratory Rate 18 25 H 14 Blood Pressure 118/75 116/74 116/67 Pulse Oximetry 96 99 97 06/04/18 01:30 06/04/18 02:00 06/04/18 02:30 Temperature Pulse Rate 54 L 46 L 65 Respiratory Rate 15 11 L 17 Blood Pressure 122/65 121/64 132/76 Pulse Oximetry 99 97 99 06/04/18 03:00 06/04/18 03:30 06/04/18 04:00 Temperature Pulse Rate 73 75 71 Respiratory Rate 24 23 24 Blood Pressure 131/96 H 141/81 H 125/76 Pulse Oximetry 99 99 99 06/04/18 04:30 06/04/18 05:00 06/04/18 05:30 Temperature Pulse Rate 73 56 L 59 L Respiratory Rate 24 13 13 Blood Pressure 136/72 120/69 116/64 Pulse Oximetry 100 98 98 06/04/18 06:00 06/04/18 06:30 06/04/18 07:00 Temperature Pulse Rate 57 L 71 68 Respiratory Rate 11 L 21 18 Blood Pressure 127/71 124/74 117/76 Pulse Oximetry 98 99 100 06/04/18 07:30 06/04/18 08:00 06/04/18 08:30 Temperature 98.2 F Pulse Rate 64 73 77 Respiratory Rate 15 16 19 Blood Pressure 131/73 136/91 H 124/73 Pulse Oximetry 98 100 99 06/04/18 09:00 06/04/18 09:30 06/04/18 10:00 Temperature Pulse Rate 76 83 69 Respiratory Rate 20 20 18 Blood Pressure 127/84 132/86 129/85 Pulse Oximetry 100 98 97 06/04/18 10:30 06/04/18 11:00 06/04/18 11:30 Temperature Pulse Rate 75 59 L 58 L Respiratory Rate 36 H 14 16 Blood Pressure 138/85 140/75 133/72 Pulse Oximetry 98 98 97 06/04/18 11:43 06/04/18 12:00 Temperature 98.3 F Pulse Rate 74 Respiratory Rate 18 15 Blood Pressure 132/83 Pulse Oximetry 99 Intake & Output 06/03/18 06/04/18 06/04/18 18:59 06:59 18:59 Intake Total 50 / 50 5450 / 5450 1000 / 1000 Output Total 3470 / 3470 625 / 625 Balance 50 / 50 1979 / 1979 375 / 375 Weight 209 lb 7.026 oz Intake: IV 50 / 50 250 / 250 1000 / 1000 NS Inj 1,000 ML @ 100 mls/hr IV 950 / 950 .CONT .Q10H [facility] Rx#:[id number] Cipro 400 MG/200 ML Inj 400 mg 200 / 200 In 200 ml @ 0 mls/hr IV.SIG . STK-MED ONE Rx#:[id number] Ancef 2 GM Premix Inj 2 gm In 50 / 50 50 / 50 50 / 50 50 ml @ 100 mls/hr IV.SIG Q8H [facility] Rx#:[id number] Oral 0 / 0 Anesthesia Amount 5000 / 5000 Other 200 / 200 Output: Urine 250 / 250 Estimated Blood Loss 600 / 600 Urine Amount (Catheter) 1400 / 1400 Indwelling Urethral Catheter 1400 / 1400 Wound Drainage 1220 / 1220 625 / 625 # 1 Lower Back SUDHA Drain 80 / 80 Left Nephrostomy Tube 800 / 800 405 / 405 Right Nephrostomy Tube 340 / 340 220 / 220 Other: # Voids 1 Result Diagrams: 06/04/18 12:20 06/04/18 12:20 Laboratory Results: Laboratory Results - last 24 hr 06/03/18 06/03/18 06/03/18 17:02 19:40 21:28 WBC 21.4 H D RBC 2.98 L Hgb 10.4 L Hct 29.1 L MCV 97.6 MCH 34.8 H MCHC 35.7 RDW 14.6 Plt Count 296 D MPV 7.7 Prelim Diff (Auto) Slide review pending Neut % (Auto) 92.5 H Lymph % (Auto) 3.6 L Graves % (Auto) 3.7 Eos % (Auto) 0.0 Baso % (Auto) 0.2 Neut # (Auto) 19.8 H Lymph # (Auto) 0.8 L Graves # (Auto) 0.8 Eos # (Auto) 0.0 Baso # (Auto) 0.0 WBC Differential Manual diff final Seg Neuts % (Manual) 62 Band Neuts % (Manual) 24 H Lymphocytes % (Manual) 5 L Monocytes % (Manual) 3 Metamyelocytes % (Man) 3 H Myelocytes % (Man) 3 H Abs Neuts (Manual) 19.7 H Differential Comment . Toxic Granulation 1+ H Platelet Estimate Normal Platelet Morphology Normal RBC Morphology Normal Puncture Site Art line Patient Temperature 98.6 O2 Saturation 97 ABG pH 7.41 ABG pCO2 32 L ABG pO2 271 H ABG HCO3 20 L ABG O2 Content 14.3 ABG Base Excess -3.9 L ABG Methemoglobin 1.8 Sabino Test Present Hemoglobin 10.0 L Carboxyhemoglobin 1.0 O2 Delivery Device Ventilator Vent Setting Or Critical Value No Sodium Potassium Chloride Carbon Dioxide Anion Gap BUN Creatinine Estimated GFR Random Glucose Calcium MTS Gel Crossmatch See Detail Bld Prod Order Comment 06/03/18 21:28 WBC RBC Hgb Hct MCV MCH MCHC RDW Plt Count MPV Prelim Diff (Auto) Neut % (Auto) Lymph % (Auto) Graves % (Auto) Eos % (Auto) Baso % (Auto) Neut # (Auto) Lymph # (Auto) Graves # (Auto) Eos # (Auto) Baso # (Auto) WBC Differential Seg Neuts % (Manual) Band Neuts % (Manual) Lymphocytes % (Manual) Monocytes % (Manual) Metamyelocytes % (Man) Myelocytes % (Man) Abs Neuts (Manual) Differential Comment Toxic Granulation Platelet Estimate Platelet Morphology RBC Morphology Puncture Site Patient Temperature O2 Saturation ABG pH ABG pCO2 ABG pO2 ABG HCO3 ABG O2 Content ABG Base Excess ABG Methemoglobin Sabino Test Hemoglobin Carboxyhemoglobin O2 Delivery Device Vent Setting Critical Value Sodium 137 Potassium 4.0 Chloride 103 Carbon Dioxide 23.6 Anion Gap 10 BUN 23 H Creatinine 1.14 H Estimated GFR 50 L Random Glucose 144 H Calcium 7.9 L D MTS Gel Crossmatch Bld Prod Order Comment Culture Results: Microbiology 05/30/18 18:37 Urine Culture - Final Clean Catch Urine 50-100,000 cfu/mL mixed gram positive xenia (probable contaminants) Imaging Studies: Impressions Chest X-Ray 06/03/18 00:00 CONCLUSION: No acute cardiopulmonary disease. Medications: Active Medications Generic Name Dose Route Start Last Admin Trade Name Freq PRN Reason Stop Dose Admin Hydrocodone Bitart/Acetaminophen 1 tab 06/03/18 21:18 06/04/18 11:43 [place] 10/325 PO 1 tab Q4H PRN Administration Pain Scale 1 To 5 Ciprofloxacin HCl 500 mg 05/31/18 06:00 06/04/18 06:36 Cipro PO Not Given BID@0600,1800 AMAIRANI Dexamethasone Sodium Phosphate 2 mg 05/31/18 06:00 06/04/18 11:43 Decadron Inj IV.PUSH 2 mg Q6H AMAIRANI Administration Famotidine 10 mg 06/01/18 21:00 06/04/18 08:36 Pepcid Pf Inj IV.PUSH Not Given Q12HR AMAIRANI Cefazolin Sodium/Dextrose 2 gm in 50 mls @ 100 mls/hr 06/04/18 01:00 09:55 Ancef 2 Gm Premix Inj IV.SIG 06/04/18 17:29 Infused Q8H AMAIRANI Infusion Sodium Chloride 1,000 mls @ 100 mls/hr 06/03/18 21:30 06/04/18 08:36 Ns Inj IV.CONT 100 mls/hr .Q10H AMAIRANI Administration Hydromorphone/Sodium Chloride 6 mg in 30 mls @ 0 mls/hr 06/03/18 21:21 06:42 Dilaudid Rug Weaver Inj EKG MANAGER 0 mls/hr UNSCH PRN Infusion prn pain 0 MG/HR Metoprolol Succinate 25 mg 06/02/18 09:25 06/04/18 09:20 Toprol Xl PO Not Given DAILY AMAIRANI Pantoprazole Sodium 40 mg 06/04/18 09:00 06/04/18 08:35 Protonix PO 40 mg DAILY AMAIRANI Administration Senna/Docusate Sodium 1 tab 06/04/18 09:00 06/04/18 08:35 Corine-Colace PO Not Given BID AMAIRANI Sodium Chloride 2 ml 05/30/18 21:00 06/04/18 08:36 Ns Flush IV.FLUSH 2 ml BID AMAIRANI Administration Objective Remarks: GENERAL: Anxious appearing middle-aged female resting in bed SKIN: Warm and dry. HEAD: Normocephalic. EYES: No scleral icterus. No injection or drainage. NECK: Supple, trachea midline. No JVD or lymphadenopathy. CARDIOVASCULAR: + S1/S2. RESPIRATORY: Breath sounds equal bilaterally. No accessory muscle use. GASTROINTESTINAL: Abdomen soft, non-tender, nondistended. : Bilateral nephrostomy tubes in place with clear yellow urine noted EXTREMITIES: No cyanosis, or edema. MUSCULOSKELETAL: Adequate muscle tone. NEUROLOGICAL: No obvious focal deficit. Awake, alert, and oriented x3. Assessment/Plan - Plan 52-year-old female who was diagnosed approximately 3 months ago with metastatic bladder cancer who received 1 dose of chemotherapy with MVAC. She was receiving radiation to a metastatic lesion in the L2 spine. She developed increasing pain and an MRI done just prior to admission showed increasing metastatic disease to the L2 without pathological fracture. She was admitted to the hospital for further surgical intervention. She was found to have bilateral hydronephrosis incidentally on imaging and bilateral nephrostomy tubes were placed. Recommendations: 1. Patient had surgery by Dr. Ortiz yesterday with open reduction internal fixation of pathologic L2 fracture. The patient reports her pain is well controlled at the surgical site. She denies any bleeding. 2. Per TUBING ASSEMBLER they are contacting nephrology to see about removal of nephrostomy tubes as patient is quite symptomatic from pain at insertion site bilaterally. 3. Discussed with patient that we will wait approximately 3-4 weeks once she heals from surgery and then will likely proceed with second line palliative chemotherapy. 4. Supportive care - Attending Statement The exam, history, and the medical decision-making described in the above note were completed with the assistance of the mid-level provider. I reviewed and agree with the findings presented. I attest that I had a [id number] encounter with the patient on the same day, and personally performed and documented my assessment and findings in the medical record. Chart reviewed, patient seen and examined Complaining of back pain Status post surgery for L2 pathological fracture Still has nephrostomy tube. Urology to follow Hold chemotherapy until she recovers from the surgery
--- NOTE | 2018-06-04 13:08 | P.PNNS ---
Subjective Interval history: The patient is stable following a decompression and fusion with instrumentation for spinal metastasis. She is now postoperative day 1 and doing very well. She is complaining of severe pain and discomfort from bilateral nephrostomy tubes that were placed. She has no real complaints in regards to her low back and feels that the pain in fact has improved from preoperatively and the numbness and weakness that she had in the right lower extremity has improved. Physical Exam Vital signs: Vital Signs 06/03/18 21:10 06/03/18 21:15 06/03/18 21:30 Temperature 98.1 F Pulse Rate 75 76 75 Respiratory Rate 18 22 20 Blood Pressure 128/73 135/73 Pulse Oximetry 98 98 97 06/03/18 21:45 06/03/18 22:00 06/03/18 22:38 Temperature 98.0 F Pulse Rate 76 75 80 Respiratory Rate 20 21 Blood Pressure 124/78 Pulse Oximetry 98 06/03/18 22:42 06/03/18 22:45 06/03/18 23:00 Temperature 98.2 F Pulse Rate 78 78 75 Respiratory Rate 23 Blood Pressure 127/82 Pulse Oximetry 99 100 98 06/03/18 23:15 06/03/18 23:26 06/03/18 23:48 Temperature Pulse Rate 68 62 64 Respiratory Rate 16 14 Blood Pressure 113/70 Pulse Oximetry 98 95 06/04/18 00:00 06/04/18 00:30 06/04/18 01:00 Temperature 98.4 F Pulse Rate 63 75 54 L Respiratory Rate 18 25 H 14 Blood Pressure 118/75 116/74 116/67 Pulse Oximetry 96 99 97 06/04/18 01:30 06/04/18 02:00 06/04/18 02:30 Temperature Pulse Rate 54 L 46 L 65 Respiratory Rate 15 11 L 17 Blood Pressure 122/65 121/64 132/76 Pulse Oximetry 99 97 99 06/04/18 03:00 06/04/18 03:30 06/04/18 04:00 Temperature Pulse Rate 73 75 71 Respiratory Rate 24 23 24 Blood Pressure 131/96 H 141/81 H 125/76 Pulse Oximetry 99 99 99 06/04/18 04:30 06/04/18 05:00 06/04/18 05:30 Temperature Pulse Rate 73 56 L 59 L Respiratory Rate 24 13 13 Blood Pressure 136/72 120/69 116/64 Pulse Oximetry 100 98 98 12/15/18 06:00 06/04/18 06:30 06/04/18 07:00 Temperature Pulse Rate 57 L 71 68 Respiratory Rate 11 L 21 18 Blood Pressure 127/71 124/74 117/76 Pulse Oximetry 98 99 100 06/04/18 07:30 06/04/18 08:00 06/04/18 08:30 Temperature 98.2 F Pulse Rate 64 73 77 Respiratory Rate 15 16 19 Blood Pressure 131/73 136/91 H 124/73 Pulse Oximetry 98 100 99 06/04/18 09:00 06/04/18 09:30 06/04/18 10:00 Temperature Pulse Rate 76 83 69 Respiratory Rate 20 20 18 Blood Pressure 127/84 132/86 129/85 Pulse Oximetry 100 98 97 06/04/18 10:30 06/04/18 11:00 06/04/18 11:30 Temperature Pulse Rate 75 59 L 58 L Respiratory Rate 36 H 14 16 Blood Pressure 138/85 140/75 133/72 Pulse Oximetry 98 98 97 06/04/18 11:43 06/04/18 12:00 06/04/18 12:21 Temperature 98.3 F Pulse Rate 74 Respiratory Rate 18 15 18 Blood Pressure 132/83 Pulse Oximetry 99 Intake & Output 06/03/18 06/04/18 06/04/18 18:59 06:59 18:59 Intake Total 50 / 50 5450 / 5450 1000 / 1000 Output Total 3470 / 3470 625 / 625 Balance 50 / 50 1979 / 1979 375 / 375 Weight 95 kg Intake: IV 50 / 50 250 / 250 1000 / 1000 NS Inj 1,000 ML @ 100 mls/hr IV 950 / 950 .CONT .Q10H [facility] Rx#:[id number] Cipro 400 MG/200 ML Inj 400 mg 200 / 200 In 200 ml @ 0 mls/hr IV.SIG . STK-MED ONE Rx#:[id number] Ancef 2 GM Premix Inj 2 gm In 50 / 50 50 / 50 50 / 50 50 ml @ 100 mls/hr IV.SIG Q8H [facility] Rx#:[id number] Oral 0 / 0 Anesthesia Amount 5000 / 5000 Other 200 / 200 Output: Urine 250 / 250 Estimated Blood Loss 600 / 600 Urine Amount (Catheter) 1400 / 1400 Indwelling Urethral Catheter 1400 / 1400 Wound Drainage 1220 / 1220 625 / 625 # 1 Lower Back SUDHA Drain 80 / 80 Left Nephrostomy Tube 800 / 800 405 / 405 Right Nephrostomy Tube 340 / 340 220 / 220 Other: # Voids 1 - Routine Neurological Exam The patient is awake and alert. She is oriented. Her speech is fluent. Cranial nerve testing 2 through 12 is grossly intact. There were no focal motor or sensory deficits. The dressing was dry and intact. - Urinary Catheter Management Indwelling Urethral Catheter Cath placed during this visit: no Assessment and Plan - Plan I again reviewed her MRI and CT Pathologic compression fracture, L2. MRI lumbar spine shows a pathological fracture of L2 with a complex, destructive mass causing severe compresion of the neural structures. this is unstable. I discussed with her the alternatives of treatment. She understands that surgery should be a last resort. She underwent radiation therapy and chemotherapy. Her oncologist has recommended consideration to surgery. I recommend a surgical decompression with an arthrodhesis, with L1-L3 versus T12-L4 instrumental fixation depensing on her bone quality. Saloni discussed the [id number] details of the surgical procedure, its indications, alternatives, risks, and potential complications. Risks and potential complications include, but are not limited to, infection, blood loss, CSF leak, partial or complete loss of sight in one or both eyes, paresis, paralysis, permanent pain or difficulty swallowing, loss of bowel or bladder function, complications from anesthesia, blood clot, stroke, myocardial infarction, or even . The possibility of nonoperative treatment has been offered. Bladder Cancer - follows with Dr. Sen at [facility] - treated with chemo and radiation treatment Bilateral hydronephrosis 5 mm calculus and right renal pelvis Bilateral uronephrosis. Status post bilateral stents Consult to urology for evaluation of hydronephrosis despite ureteral stenting Urinalysis minimally suggestive of UTI with culture indicated -we will continue patient on Cipro for now -await urine culture and adjust treatment as needed Hypokalemia -Replaced -Repeat labs in a.m. and follow results-further replace potassium as needed Acute on chronic renal insufficiency- suspect secondary to chemotherapy and/or obstructive uropathy and/or possible UTI- no labs from before 05/30/18 and after 08/10/11 to compare -BUN 30, creatinine 1.67, estimated GFR 32 -NS at 100 cc/hr -Repeat labs in a.m. and follow results Hypertension -Clonidine 0.1 mg every 6 hours as needed systolic blood pressure greater than 160 or diastolic blood pressure greater than 100 of heart rate is greater than 60 -Monitor blood pressure trends and adjust treatments as indicated Thrombocytopenia- likely secondary to recent chemotherapy - platelet count 107,000 - repeat CBC in a.m. follow results I advisedthe patient that surgical procedures have risks, and before reaching a decision in regards to surgery, the patient should consider the alternatives, including the possibility of no treatment. she is at increased risk due to her comorbidities and compromised, debilitated condition Pulmonary: aggressive pulmonary toilette, nasotracheal suction, and breathing treatments with nebulizers. PT and OT Renal: Continue to monitor closely urine output, BUN and creatinine Endocrine: Monitor serial Acu checks and SSI as needed in detail ID Abx for UTI Protonix for stress ulcer prophylaxis Rajesh wolf and SCD's for DVT prophylaxis Point Value = 1 Point Value = 2 Point Value = 3 Point Value = 5 Age 41-60 Minor surgery BMI > 25 kg/m2 Swollen legs Varicose veins or History of unexplained or recurrent spontaneous Oral contraceptives or hormone replacement Sepsis (< 1 month) Serious lung disease, including pneumonia (< 1 month) Abnormal pulmonary function Acute myocardial infarction Congestive heart failure (< 1 month) History of inflammatory bowel disease Medical patient at bed rest Age 61-74 Arthroscopic surgery Major open surgery (> 45 min) Laparoscopic surgery (> 45 min) Malignancy Confined to bed (> 72 hours) Immobilizing plaster cast Central venous access Age >= 75 History of VTE Family history of VTE Factor V Leiden Prothrombin [id number] Lupus anticoagulant Anticardiolipin antibodies Elevated serum homocysteine Heparin-induced thrombocytopenia Other congenital or acquired thrombophilia Stroke (< 1 month) Elective arthroplasty Hip, pelvis, or leg fracture Acute spinal cord injury (< 1 month) Prophylaxis Regimen: Total Risk Factor Score Risk Level Prophylaxis Regimen 0-1 Low Early ambulation 2 Moderate Order ONE of the following: *Sequential Compression Device (SCD) *Heparin 5000 units SQ BID 3-4 Higher Order ONE of the following medications: *Heparin 5000 units SQ TID *Enoxaparin/Lovenox 40 mg SQ daily (WT < 150 kg, CrCl > 30 mL/min) *Enoxaparin/Lovenox 30 mg SQ daily (WT < 150 kg, CrCl > 10-29 mL/min) *Enoxaparin/Lovenox 30 mg SQ BID (WT < 150 kg, CrCl > 30 mL/min) AND/OR *Sequential Compression Device (SCD) 5 or more Highest Order ONE of the following medications: *Heparin 5000 units SQ TID (Preferred with Epidurals) *Enoxaparin/Lovenox 40 mg SQ daily (WT < 150 kg, CrCl > 30 mL/min) *Enoxaparin/Lovenox 30 mg SQ daily (WT < 150 kg, CrCl > 10-29 mL/min) *Enoxaparin/Lovenox 30 mg SQ BID (WT < 150 kg, CrCl > 30 mL/min) AND *Sequential Compression Device (SCD) The exam, history, and the medical decision-making described in the above note were completed with the assistance of the mid-level provider. I reviewed and agree with the findings presented. I attest that I had a [id number] encounter with the patient on the same day, and personally performed and documented my assessment and findings in the medical record. 06/04/2018 the patient is stable postoperatively and appears to be doing well. From a neurosurgical perspective she can be mobilized after being placed in a TLSO. She also probably can be transferred to the floor. Neurosurgery will follow.
[2018-06-04 13:25] LABS: Hematocrit 29.6 % (35.0-46.0); Hemoglobin 10.1 gm/dL (11.6-15.3); Mean Corpuscular HGB Conc 34.2 % (32.0-36.0); Mean Corpuscular Hemoglobin 34.5 pg (27.0-34.0); Mean Corpuscular Volume 100.8 fL (80.0-100.0); Mean Platelet Volume 7.7 fL (7.0-11.0); Platelet Count 306 th/mm3 (150-450); Red Blood Count 2.93 mil/mm3 (4.00-5.30); Red Cell Distribution Width 14.6 % (11.6-17.2); White Blood Count 18.9 th/mm3 (4.0-11.0)
[2018-06-04 13:47] LABS: Calcium 8.4 mg/dL (8.5-10.1); Carbon Dioxide 24.8 meq/L (21.0-32.0)
--- NOTE | 2018-06-04 13:56 | P.PNNP ---
Subjective Interval history: Reporting increased pain but improving now. Denies any shortness of breath, chest pain, nausea, or vomiting.. <Jeanie Alatorre - Last Filed: 06/04/18 13:50> Physical Exam Vital signs: Vital Signs 06/03/18 21:10 06/03/18 21:15 06/03/18 21:30 Temperature 98.1 F Pulse Rate 75 76 75 Respiratory Rate 18 22 20 Blood Pressure 128/73 135/73 Pulse Oximetry 98 98 97 06/03/18 21:45 06/03/18 22:00 06/03/18 22:38 Temperature 98.0 F Pulse Rate 76 75 80 Respiratory Rate 20 21 Blood Pressure 124/78 Pulse Oximetry 98 06/03/18 22:42 06/03/18 22:45 06/03/18 23:00 Temperature 98.2 F Pulse Rate 78 78 75 Respiratory Rate 23 Blood Pressure 127/82 Pulse Oximetry 99 100 98 06/03/18 23:15 06/03/18 23:26 06/03/18 23:48 Temperature Pulse Rate 68 62 64 Respiratory Rate 16 14 Blood Pressure 113/70 Pulse Oximetry 98 95 06/04/18 00:00 06/04/18 00:30 06/04/18 01:00 Temperature 98.4 F Pulse Rate 63 75 54 L Respiratory Rate 18 25 H 14 Blood Pressure 118/75 116/74 116/67 Pulse Oximetry 96 99 97 06/04/18 01:30 06/04/18 02:00 06/04/18 02:30 Temperature Pulse Rate 54 L 46 L 65 Respiratory Rate 15 11 L 17 Blood Pressure 122/65 121/64 132/76 Pulse Oximetry 99 97 99 06/04/18 03:00 06/04/18 03:30 06/04/18 04:00 Temperature Pulse Rate 73 75 71 Respiratory Rate 24 23 24 Blood Pressure 131/96 H 141/81 H 125/76 Pulse Oximetry 99 99 99 06/04/18 04:30 06/04/18 05:00 06/04/18 05:30 Temperature Pulse Rate 73 56 L 59 L Respiratory Rate 24 13 13 Blood Pressure 136/72 120/69 116/64 Pulse Oximetry 100 98 98 06/04/18 06:00 06/04/18 06:30 06/04/18 07:00 Temperature Pulse Rate 57 L 71 68 Respiratory Rate 11 L 21 18 Blood Pressure 127/71 124/74 117/76 Pulse Oximetry 98 99 100 06/04/18 07:30 06/04/18 08:00 06/04/18 08:30 Temperature 98.2 F Pulse Rate 64 73 77 Respiratory Rate 15 16 19 Blood Pressure 131/73 136/91 H 124/73 Pulse Oximetry 98 100 99 06/04/18 09:00 06/04/18 09:30 06/04/18 10:00 Temperature Pulse Rate 76 83 69 Respiratory Rate 20 20 18 Blood Pressure 127/84 132/86 129/85 Pulse Oximetry 100 98 97 06/04/18 10:30 06/04/18 11:00 06/04/18 11:30 Temperature Pulse Rate 75 59 L 58 L Respiratory Rate 36 H 14 16 Blood Pressure 138/85 140/75 133/72 Pulse Oximetry 98 98 97 06/04/18 11:43 06/04/18 12:00 06/04/18 12:21 Temperature 98.3 F Pulse Rate 74 Respiratory Rate 18 15 18 Blood Pressure 132/83 Pulse Oximetry 99 Intake & Output 06/03/18 06/04/18 06/04/18 18:59 06:59 18:59 Intake Total 50 / 50 5450 / 5450 1000 / 1000 Output Total 3470 / 3470 625 / 625 Balance 50 / 50 1979 / 1979 375 / 375 Weight 95 kg Intake: IV 50 / 50 250 / 250 1000 / 1000 NS Inj 1,000 ML @ 100 mls/hr IV 950 / 950 .CONT .Q10H [facility] Rx#:[id number] Cipro 400 MG/200 ML Inj 400 mg 200 / 200 In 200 ml @ 0 mls/hr IV.SIG . STK-MED ONE Rx#:[id number] Ancef 2 GM Premix Inj 2 gm In 50 / 50 50 / 50 50 / 50 50 ml @ 100 mls/hr IV.SIG Q8H [facility] Rx#:[id number] Oral 0 / 0 Anesthesia Amount 5000 / 5000 Other 200 / 200 Output: Urine 250 / 250 Estimated Blood Loss 600 / 600 Urine Amount (Catheter) 1400 / 1400 Indwelling Urethral Catheter 1400 / 1400 Wound Drainage 1220 / 1220 625 / 625 # 1 Lower Back SUDHA Drain 80 / 80 Left Nephrostomy Tube 800 / 800 405 / 405 Right Nephrostomy Tube 340 / 340 220 / 220 Other: # Voids 1 Narrative: GENERAL: Alert and oriented SKIN: Warm and dry. NECK: Supple, trachea midline. No JVD. CARDIOVASCULAR: Regular rate and rhythm without murmurs, gallops, or rubs. RESPIRATORY: Breath sounds equal bilaterally. No accessory muscle use. GASTROINTESTINAL: Abdomen soft, non-tender, nondistended. GENITOURINARY: Bilateral nephrostomy tubes with light yellow urine MUSCULOSKELETAL: No cyanosis, or edema. BACK: SUDHA drain in place. - Urinary Catheter Management Indwelling Urethral Catheter Cath placed during this visit: no <Jeanie Alatorre - Last Filed: 06/04/18 13:50> Vital signs: Vital Signs 06/03/18 21:30 06/03/18 21:45 06/03/18 22:00 Temperature 98.0 F Pulse Rate 75 76 75 Respiratory Rate 20 20 21 Blood Pressure 124/78 Pulse Oximetry 97 98 06/03/18 22:38 06/03/18 22:42 06/03/18 22:45 Temperature Pulse Rate 80 78 78 Respiratory Rate Blood Pressure 127/82 Pulse Oximetry 99 100 06/03/18 23:00 06/03/18 23:15 06/03/18 23:26 Temperature 98.2 F Pulse Rate 75 68 62 Respiratory Rate 23 16 Blood Pressure Pulse Oximetry 98 98 06/03/18 23:48 06/04/18 00:00 06/04/18 00:30 Temperature 98.4 F Pulse Rate 64 63 75 Respiratory Rate 14 18 25 H Blood Pressure 113/70 118/75 116/74 Pulse Oximetry 95 96 99 06/04/18 01:00 06/04/18 01:30 06/04/18 02:00 Temperature Pulse Rate 54 L 54 L 46 L Respiratory Rate 14 15 11 L Blood Pressure 116/67 122/65 121/64 Pulse Oximetry 97 99 97 06/04/18 02:30 06/04/18 03:00 06/04/18 03:30 Temperature Pulse Rate 65 73 75 Respiratory Rate 17 24 23 Blood Pressure 132/76 131/96 H 141/81 H Pulse Oximetry 99 99 99 06/04/18 04:00 06/04/18 04:30 06/04/18 05:00 Temperature Pulse Rate 71 73 56 L Respiratory Rate 24 24 13 Blood Pressure 125/76 136/72 120/69 Pulse Oximetry 99 100 98 06/04/18 05:30 06/04/18 06:00 06/04/18 06:30 Temperature Pulse Rate 59 L 57 L 71 Respiratory Rate 13 11 L 21 Blood Pressure 116/64 127/71 124/74 Pulse Oximetry 98 98 99 06/04/18 07:00 06/04/18 07:30 06/04/18 08:00 Temperature 98.2 F Pulse Rate 68 64 73 Respiratory Rate 18 15 16 Blood Pressure 117/76 131/73 136/91 H Pulse Oximetry 100 98 100 06/04/18 08:30 06/04/18 09:00 06/04/18 09:30 Temperature Pulse Rate 77 76 83 Respiratory Rate 19 20 20 Blood Pressure 124/73 127/84 132/86 Pulse Oximetry 99 100 98 06/04/18 10:00 06/04/18 10:30 06/04/18 11:00 Temperature Pulse Rate 69 75 59 L Respiratory Rate 18 36 H 14 Blood Pressure 129/85 138/85 140/75 Pulse Oximetry 97 98 98 06/04/18 11:30 06/04/18 11:43 06/04/18 12:00 Temperature 98.3 F Pulse Rate 58 L 74 Respiratory Rate 16 18 15 Blood Pressure 133/72 132/83 Pulse Oximetry 97 99 06/04/18 12:21 06/04/18 12:30 06/04/18 13:00 Temperature Pulse Rate 82 77 Respiratory Rate 18 18 17 Blood Pressure 129/84 Pulse Oximetry 96 98 06/04/18 14:00 06/04/18 15:50 06/04/18 20:00 Temperature 98.2 F 98.0 F Pulse Rate 71 73 67 Respiratory Rate 19 16 20 Blood Pressure 142/73 H 139/70 Pulse Oximetry 98 96 95 Intake & Output 06/04/18 06/04/18 06/05/18 06:59 18:59 06:59 Intake Total 5450 / 5450 1999 Output Total 3470 / 3470 1090 / 1090 Balance 1979 / 1979 910 / 910 Weight 95 kg Intake: IV 250 / 250 1999 NS Inj 1,000 ML @ 100 mls/hr IV 1950 / 1950 .CONT .Q10H [facility] Rx#:[id number] Cipro 400 MG/200 ML Inj 400 mg 200 / 200 In 200 ml @ 0 mls/hr IV.SIG . STK-MED ONE Rx#:[id number] Ancef 2 GM Premix Inj 2 gm In 50 / 50 50 / 50 50 ml @ 100 mls/hr IV.SIG Q8H [facility] Rx#:[id number] Oral 0 / 0 Anesthesia Amount 5000 / 5000 Other 200 / 200 Output: Urine 250 / 250 Estimated Blood Loss 600 / 600 Urine Amount (Catheter) 1400 / 1400 Indwelling Urethral Catheter 1400 / 1400 Wound Drainage 1220 / 1220 1090 / 1090 # 1 Lower Back SUDHA Drain 80 / 80 40 / 40 Left Nephrostomy Tube 800 / 800 705 / 705 Right Nephrostomy Tube 340 / 340 345 / 345 Other: # Voids 1 - Urinary Catheter Management Indwelling Urethral Catheter Cath placed during this visit: no <Wagner Daily - Last Filed: 06/04/18 21:17> Assessment and Plan - Assessment (1) Renal insufficiency Code(s): N28.9 - Disorder of kidney and ureter, unspecified Status: Acute Plan: Patient with bilateral bilateral Nephrostomy. Now urine is getting clear. Creatinine has been improving, labs pending for today Avoid Nephrotoxins. Follow the urine out put and BMP. (2) Bladder cancer Code(s): C67.9 - Malignant neoplasm of bladder, unspecified Status: Acute Qualifiers: Bladder location: unspecified site Qualified Code(s): C67.9 - Malignant neoplasm of bladder, unspecified Plan: Extensive lytic bone destruction of L2 with soft tissue mass, spinal stenosis and pathologic fracture as above. Metastatic disease from reported history of bladder cancer. - follows with Dr. Sen at [facility] - treated with chemo and radiation treatment (3) Pathologic compression fracture of lumbar vertebra Code(s): M48.56XA - Collapsed vertebra, not elsewhere classified, lumbar region , initial encounter for fracture Status: Acute Qualifiers: Encounter type: initial encounter Qualified Code(s): M48.56XA - Collapsed vertebra, not elsewhere classified, lumbar region, initial encounter for fracture Plan: Neurosurgical consulted, s/p Open reduction and internal fixation of pathological L2 fracture L3 on 06/03 (4) Hypertension Code(s): I10 - Essential (primary) hypertension Status: Acute Plan: Well controlled. On metoprolol and has PRN clonidine will monitor. <Jeanie Alatorre - Last Filed: 06/04/18 13:50> - Assessment (1) Renal insufficiency Code(s): N28.9 - Disorder of kidney and ureter, unspecified Status: Acute Plan: Patient seen and examined, agree with above. Creatinine is almost same, K is normal. To keep Nephrostomy as she has Bilateral Hydronephrosis. (2) Bladder cancer Code(s): C67.9 - Malignant neoplasm of bladder, unspecified Status: Acute Qualifiers: Bladder location: unspecified site Qualified Code(s): C67.9 - Malignant neoplasm of bladder, unspecified (3) Pathologic compression fracture of lumbar vertebra Code(s): M48.56XA - Collapsed vertebra, not elsewhere classified, lumbar region , initial encounter for fracture Status: Acute Qualifiers: Encounter type: initial encounter Qualified Code(s): M48.56XA - Collapsed vertebra, not elsewhere classified, lumbar region, initial encounter for fracture (4) Hypertension Code(s): I10 - Essential (primary) hypertension Status: Acute <Wagner Daily - Last Filed: 06/04/18 21:17>
[2018-06-05] MEDS: Sod Chloride 0.9% Inj 1,000 ML IV.CONT SCH ×2 (04:00→13:44)
[2018-06-05] MEDS: Ciprofloxacin 500 MG Tablet PO SCH ×2 (05:55→17:26)
[2018-06-05] MEDS: Famotidine PF Inj 20 MG/2 ML Vial IV.PUSH SCH ×2 (09:48→22:12)
[2018-06-05] MEDS: Senna/Docusate Sodium 8.6/50 MG Tablet PO SCH ×2 (09:51→22:13)
--- NOTE | 2018-06-05 10:56 | P.PNNP ---
Subjective Interval history: Sitting up in chair. Denies any shortness of breath, chest pain, nausea, or vomiting. Bilateral nephrostomy tubes with clear yellow urine. <Jeanie Alatorre - Last Filed: 06/05/18 10:49> Physical Exam Vital signs: Vital Signs 06/04/18 11:00 06/04/18 11:30 06/04/18 11:43 Temperature Pulse Rate 59 L 58 L Respiratory Rate 14 16 18 Blood Pressure 140/75 133/72 Pulse Oximetry 98 97 06/04/18 12:00 06/04/18 12:21 06/04/18 12:30 Temperature 98.3 F Pulse Rate 74 82 Respiratory Rate 15 18 18 Blood Pressure 132/83 129/84 Pulse Oximetry 99 96 06/04/18 13:00 06/04/18 14:00 06/04/18 15:50 Temperature 98.2 F Pulse Rate 77 71 73 Respiratory Rate 17 19 16 Blood Pressure 142/73 H Pulse Oximetry 98 98 96 06/04/18 20:00 06/05/18 00:00 06/05/18 04:00 Temperature 98.0 F 98.0 F 97.6 F Pulse Rate 67 60 56 L Respiratory Rate 20 20 20 Blood Pressure 139/70 129/74 120/64 Pulse Oximetry 95 98 99 06/05/18 07:24 Temperature 98.0 F Pulse Rate 58 L Respiratory Rate 18 Blood Pressure 117/66 Pulse Oximetry 98 Intake & Output 06/04/18 06/05/18 06/05/18 18:59 06:59 18:59 Intake Total 1999 1000 / 1000 Output Total 1090 / 1090 1705 / 1705 Balance 910 / 910 -705 / -705 Weight 92.4 kg Intake: IV 1999 1000 / 1000 NS Inj 1,000 ML @ 100 mls/hr IV 1950 / 1950 1000 / 1000 .CONT .Q10H [facility] Rx#:[id number] Ancef 2 GM Premix Inj 2 gm In 50 / 50 50 ml @ 100 mls/hr IV.SIG Q8H [facility] Rx#:[id number] Output: Wound Drainage 1090 / 1090 1705 / 1705 # 1 Lower Back SUDHA Drain 40 / 40 30 / 30 Left Nephrostomy Tube 705 / 705 1075 / 1075 Right Nephrostomy Tube 345 / 345 600 / 600 Other: Date of Last Bowel Movement 12/13/18 Narrative: GENERAL: Alert and oriented SKIN: Warm and dry. NECK: Supple, trachea midline. No JVD. CARDIOVASCULAR: Regular rate and rhythm without murmurs, gallops, or rubs. RESPIRATORY: Breath sounds equal bilaterally. No accessory muscle use. GASTROINTESTINAL: Abdomen soft, non-tender, nondistended. GENITOURINARY: Bilateral nephrostomy tubes with light yellow urine MUSCULOSKELETAL: No cyanosis, or edema. Back brace on. BACK: SUDHA drain in place. - Urinary Catheter Management Indwelling Urethral Catheter Cath placed during this visit: no <Jeanie Alatorre - Last Filed: 06/05/18 10:49> Vital signs: Vital Signs 06/05/18 00:00 06/05/18 04:00 06/05/18 07:24 Temperature 98.0 F 97.6 F 98.0 F Pulse Rate 60 56 L 58 L Respiratory Rate 20 20 18 Blood Pressure 129/74 120/64 117/66 Pulse Oximetry 98 99 98 06/05/18 12:17 06/05/18 16:00 Temperature 98.0 F 97.9 F Pulse Rate 95 H 79 Respiratory Rate 19 19 Blood Pressure 131/90 141/64 H Pulse Oximetry 99 97 Intake & Output 06/05/18 06/05/18 06/06/18 06:59 18:59 06:59 Intake Total 1000 / 1000 1000 / 1000 Output Total 1705 / 1705 711 / 711 Balance -705 / -705 289 / 289 Weight 92.4 kg Intake: IV 1000 / 1000 1000 / 1000 NS Inj 1,000 ML @ 100 mls/hr IV 1000 / 1000 1000 / 1000 .CONT .Q10H [facility] Rx#:[id number] Output: Stool 1 / Wound Drainage 1705 / 1705 710 / 710 # 1 Lower Back SUDHA Drain 30 / 30 10 / 10 Left Nephrostomy Tube 1075 / 1075 450 / 450 Right Nephrostomy Tube 600 / 600 250 / 250 Other: Date of Last Bowel Movement 06/02/18 06/05/18 - Urinary Catheter Management Indwelling Urethral Catheter Cath placed during this visit: no <Wagner Daily - Last Filed: 06/05/18 21:40> Assessment and Plan - Assessment (1) Renal insufficiency Code(s): N28.9 - Disorder of kidney and ureter, unspecified Status: Acute Plan: Acute kidney injury with a creatinine on admission of 1.67 RIYA possible AIN secondary to chemotherapy and/or post renal with obstructive uropathy. Renal ultrasound with right with moderate to severe hydronephrosis and left kidney with moderate hydronephrosis. Has been seen by Dr. Hannah in past and has bilateral ureteral stents. Bilateral nephrostomy tubes with light yellow urine. Placed 06/02. Avoid nephrotoxins including IV contrast, NSAIDs, and aminoglycosides. Creatinine is stable at 1.14 yesterday. Follow the urine out put and BMP. labs in AM (2) Bladder cancer Code(s): C67.9 - Malignant neoplasm of bladder, unspecified Status: Acute Qualifiers: Bladder location: unspecified site Qualified Code(s): C67.9 - Malignant neoplasm of bladder, unspecified Plan: Extensive lytic bone destruction of L2 with soft tissue mass, spinal stenosis and pathologic fracture as above. Metastatic disease from reported history of bladder cancer. - follows with Dr. Sen at [facility] - treated with chemo and radiation treatment (3) Pathologic compression fracture of lumbar vertebra Code(s): M48.56XA - Collapsed vertebra, not elsewhere classified, lumbar region , initial encounter for fracture Status: Acute Qualifiers: Encounter type: initial encounter Qualified Code(s): M48.56XA - Collapsed vertebra, not elsewhere classified, lumbar region, initial encounter for fracture Plan: Neurosurgical consulted, s/p Open reduction and internal fixation of pathological L2 fracture L3 on 06/03 (4) Hypertension Code(s): I10 - Essential (primary) hypertension Status: Acute Plan: Well controlled. On metoprolol and has PRN clonidine will monitor. <Jeanie Alatorre - Last Filed: 06/05/18 10:49> - Assessment (1) Renal insufficiency Code(s): N28.9 - Disorder of kidney and ureter, unspecified Status: Acute Plan: Patient seen and examined, agree with above. Creatinine was 1.14 yesterday. Both Nephrostomy draining well. (2) Bladder cancer Code(s): C67.9 - Malignant neoplasm of bladder, unspecified Status: Acute Qualifiers: Bladder location: unspecified site Qualified Code(s): C67.9 - Malignant neoplasm of bladder, unspecified (3) Pathologic compression fracture of lumbar vertebra Code(s): M48.56XA - Collapsed vertebra, not elsewhere classified, lumbar region , initial encounter for fracture Status: Acute Qualifiers: Encounter type: initial encounter Qualified Code(s): M48.56XA - Collapsed vertebra, not elsewhere classified, lumbar region, initial encounter for fracture (4) Hypertension Code(s): I10 - Essential (primary) hypertension Status: Acute <Wagner Daily - Last Filed: 06/05/18 21:40>
--- NOTE | 2018-06-05 13:06 | P.PNNS ---
Subjective Interval history: The patient appears to be stable postoperative day #2. She is sitting up in a chair with her TLSO in place and complaining of some back discomfort. Physical Exam Vital signs: Vital Signs 06/04/18 13:00 06/04/18 14:00 06/04/18 15:50 Temperature 98.2 F Pulse Rate 77 71 73 Respiratory Rate 17 19 16 Blood Pressure 142/73 H Pulse Oximetry 98 98 96 06/04/18 20:00 06/05/18 00:00 06/05/18 04:00 Temperature 98.0 F 98.0 F 97.6 F Pulse Rate 67 60 56 L Respiratory Rate 20 20 20 Blood Pressure 139/70 129/74 120/64 Pulse Oximetry 95 98 99 06/05/18 07:24 Temperature 98.0 F Pulse Rate 58 L Respiratory Rate 18 Blood Pressure 117/66 Pulse Oximetry 98 Intake & Output 06/04/18 06/05/18 06/05/18 18:59 06:59 18:59 Intake Total 1999 / 1999 1000 / 1000 Output Total 1090 / 1090 1705 / 1705 455 / 455 Balance 910 / 910 -705 / -705 -455 / -455 Weight 92.4 kg Intake: IV 1999 / 1999 1000 / 1000 NS Inj 1,000 ML @ 100 mls/hr IV 1950 / 1950 1000 / 1000 .CONT .Q10H [facility] Rx#:[id number] Ancef 2 GM Premix Inj 2 gm In 50 / 50 50 ml @ 100 mls/hr IV.SIG Q8H [facility] Rx#:[id number] Output: Wound Drainage 1090 / 1090 1705 / 1705 455 / 455 # 1 Lower Back SUDHA Drain 40 / 40 30 / 30 5 / 5 Left Nephrostomy Tube 705 / 705 1075 / 1075 300 / 300 Right Nephrostomy Tube 345 / 345 600 / 600 150 / 150 Other: Date of Last Bowel Movement 06/02/18 - Routine Neurological Exam The patient is awake and alert. She is oriented by 3. Cognitive functions grossly intact. Speech is fluent. Cranial nerve testing 2 through 12 is grossly intact. There were no focal motor or neurosensory deficits. I was unable to evaluate the wound since the patient was sitting up in a chair with her TLSO in place. - Urinary Catheter Management Indwelling Urethral Catheter Cath placed during this visit: no Assessment and Plan - Plan I again reviewed her MRI and CT Pathologic compression fracture, L2. MRI lumbar spine shows a pathological fracture of L2 with a complex, destructive mass causing severe compresion of the neural structures. this is unstable. I discussed with her the alternatives of treatment. She understands that surgery should be a last resort. She underwent radiation therapy and chemotherapy. Her oncologist has recommended consideration to surgery. I recommend a surgical decompression with an arthrodhesis, with L1-L3 versus T12-L4 instrumental fixation depensing on her bone quality. Saloni discussed the [id number] details of the surgical procedure, its indications, alternatives, risks, and potential complications. Risks and potential complications include, but are not limited to, infection, blood loss, CSF leak, partial or complete loss of sight in one or both eyes, paresis, paralysis, permanent pain or difficulty swallowing, loss of bowel or bladder function, complications from anesthesia, blood clot, stroke, myocardial infarction, or even . The possibility of nonoperative treatment has been offered. Bladder Cancer - follows with Dr. Sen at [facility] - treated with chemo and radiation treatment Bilateral hydronephrosis 5 mm calculus and right renal pelvis Bilateral uronephrosis. Status post bilateral stents Consult to urology for evaluation of hydronephrosis despite ureteral stenting Urinalysis minimally suggestive of UTI with culture indicated -we will continue patient on Cipro for now -await urine culture and adjust treatment as needed Hypokalemia -Replaced -Repeat labs in a.m. and follow results-further replace potassium as needed Acute on chronic renal insufficiency- suspect secondary to chemotherapy and/or obstructive uropathy and/or possible UTI- no labs from before 05/30/18 and after 08/10/11 to compare -BUN 30, creatinine 1.67, estimated GFR 32 -NS at 100 cc/hr -Repeat labs in a.m. and follow results Hypertension -Clonidine 0.1 mg every 6 hours as needed systolic blood pressure greater than 160 or diastolic blood pressure greater than 100 of heart rate is greater than 60 -Monitor blood pressure trends and adjust treatments as indicated Thrombocytopenia- likely secondary to recent chemotherapy - platelet count 107,000 - repeat CBC in a.m. follow results I advisedthe patient that surgical procedures have risks, and before reaching a decision in regards to surgery, the patient should consider the alternatives, including the possibility of no treatment. she is at increased risk due to her comorbidities and compromised, debilitated condition Pulmonary: aggressive pulmonary toilette, nasotracheal suction, and breathing treatments with nebulizers. PT and OT Renal: Continue to monitor closely urine output, BUN and creatinine Endocrine: Monitor serial Acu checks and SSI as needed in detail ID Abx for UTI Protonix for stress ulcer prophylaxis Rajesh wolf and SCD's for DVT prophylaxis Point Value = 1 Point Value = 2 Point Value = 3 Point Value = 5 Age 41-60 Minor surgery BMI > 25 kg/m2 Swollen legs Varicose veins or History of unexplained or recurrent spontaneous Oral contraceptives or hormone replacement Sepsis (< 1 month) Serious lung disease, including pneumonia (< 1 month) Abnormal pulmonary function Acute myocardial infarction Congestive heart failure (< 1 month) History of inflammatory bowel disease Medical patient at bed rest Age 61-74 Arthroscopic surgery Major open surgery (> 45 min) Laparoscopic surgery (> 45 min) Malignancy Confined to bed (> 72 hours) Immobilizing plaster cast Central venous access Age >= 75 History of VTE Family history of VTE Factor V Leiden Prothrombin [id number] Lupus anticoagulant Anticardiolipin antibodies Elevated serum homocysteine Heparin-induced thrombocytopenia Other congenital or acquired thrombophilia Stroke (< 1 month) Elective arthroplasty Hip, pelvis, or leg fracture Acute spinal cord injury (< 1 month) Prophylaxis Regimen: Total Risk Factor Score Risk Level Prophylaxis Regimen 0-1 Low Early ambulation 2 Moderate Order ONE of the following: *Sequential Compression Device (SCD) *Heparin 5000 units SQ BID 3-4 Higher Order ONE of the following medications: *Heparin 5000 units SQ TID *Enoxaparin/Lovenox 40 mg SQ daily (WT < 150 kg, CrCl > 30 mL/min) *Enoxaparin/Lovenox 30 mg SQ daily (WT < 150 kg, CrCl > 10-29 mL/min) *Enoxaparin/Lovenox 30 mg SQ BID (WT < 150 kg, CrCl > 30 mL/min) AND/OR *Sequential Compression Device (SCD) 5 or more Highest Order ONE of the following medications: *Heparin 5000 units SQ TID (Preferred with Epidurals) *Enoxaparin/Lovenox 40 mg SQ daily (WT < 150 kg, CrCl > 30 mL/min) *Enoxaparin/Lovenox 30 mg SQ daily (WT < 150 kg, CrCl > 10-29 mL/min) *Enoxaparin/Lovenox 30 mg SQ BID (WT < 150 kg, CrCl > 30 mL/min) AND *Sequential Compression Device (SCD) The exam, history, and the medical decision-making described in the above note were completed with the assistance of the mid-level provider. I reviewed and agree with the findings presented. I attest that I had a [id number] encounter with the patient on the same day, and personally performed and documented my assessment and findings in the medical record. 06/04/2018 the patient is stable postoperatively and appears to be doing well. From a neurosurgical perspective she can be mobilized after being placed in a TLSO. She also probably can be transferred to the floor. Neurosurgery will follow. 06/05/2018 The patient remained stable postoperatively She requires further physical therapy and mobilization. The patient had many questions about her surgical procedure, prognosis, and further course of treatment. I deferred this discussion and told her to discuss this all with Dr. Aparicio. She understood and was agreeable.
--- NOTE | 2018-06-05 14:01 | P.PNIM ---
Subjective Interval history: Follow-up vertebral fracture L2 compression fracture, bladder cancer, hydronephrosis. Patient is doing well. Sitting in her chair. No fever, chills. Physical Exam Vital signs: Last Vital Signs Temp 98.0 F 06/05/18 07:24 Pulse 58 L 06/05/18 07:24 Resp 18 06/05/18 07:24 BP 117/66 06/05/18 07:24 Pulse Ox 98 06/05/18 07:24 Intake & Output 06/03/18 06/04/18 06/05/18 06/06/18 06:59 06:59 06:59 06:59 Intake Total 240 / 240 5500 / 5500 3000 / 3000 1000 / 1000 Output Total 2600 / 2600 3470 / 3470 2795 / 2795 455 / 455 Balance -2360 / -2360 2030 / 2030 205 / 205 545 / 545 Weight 95 kg 92.4 kg GENERAL: Alert, Oriented x 3, NAD. SKIN: Warm and dry. HEAD: Normocephalic. EYES: No scleral icterus. No injection or drainage. NECK: Supple, trachea midline. No JVD or lymphadenopathy. CARDIOVASCULAR: Regular rate and rhythm without murmurs, gallops, or rubs. RESPIRATORY: Breath sounds equal bilaterally. No accessory muscle use. GASTROINTESTINAL: Abdomen soft, non-tender, nondistended. Nephrostomy tubes in place. MUSCULOSKELETAL: No cyanosis, or edema. Brace on. BACK: Nontender without obvious deformity. No CVA tenderness. 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 Sen, hydronephrosis s/p bilateral stent placement by Dr. Hannah, hypertension, and intermittent GERD who presented to the emergency room complaining of back pain and outpatient MRI demonstrating compression fracture. Bladder cancer with possible metastasis to spinal column Pathologic compression fracture, L2 Myeloma vs Metastatic Disease -MRI at [facility] showed interval increase in size of enhancing destructive metastasis centered within the posterior L2 -Dexamethasone 2 mg IV every 6 hours -Percocet as needed for pain with morphine IV for breakthrough pain -MRI lumbar spine 06/01/18: Large lobulated lesion on the side of L2 , tumor associated mild narrowing of L1-L2 and L2-L3 -Neurosurgeon Dr. Ortiz performed ORIF of L2, L2 laminectomy on 06/03/2018. Bladder Cancer Bilateral hydronephrosis 5 mm calculus and right renal pelvis Bilateral ureteral stents -follows with Dr. Sen at [facility] - treated with chemo and radiation x 1 treatment -Oncology consult appreciated, Dr. Sen: Recommended to follow-up with [facility] for evaluation and possible clinical trial treatment -Status post bilateral nephrostomy tube placement by interventional radiology on 06/02/18 -Will discuss with IR regarding nephrostomy tubes on 06/06/2018. -Patient will likely need palliative chemo. Acute on chronic renal insufficiency Hypokalemia - resolved. -Creatinine improved to 1.14. Hypertension -Clonidine PRN. Thrombocytopenia- likely secondary to recent chemotherapy -Resolved. Currently around 296K. Full code. SCDs. Progress Note: Quality VTE Deep Vein Thrombosis/Pulmonary Embolism Present on Admission: No
[2018-06-06] MEDS: Sod Chloride 0.9% Inj 1,000 ML IV.CONT SCH ×4 (01:20→18:35)
[2018-06-06] MEDS: Ciprofloxacin 500 MG Tablet PO SCH ×2 (06:05→17:19)
[2018-06-06] MEDS: Senna/Docusate Sodium 8.6/50 MG Tablet PO SCH ×2 (08:44→22:07)
[2018-06-06] MEDS: Famotidine PF Inj 20 MG/2 ML Vial IV.PUSH SCH ×2 (08:44→22:06)
[2018-06-06 09:13] LABS: Albumin 2.5 g/dL (3.4-5.0); Calcium 8.1 mg/dL (8.5-10.1); Carbon Dioxide 25.6 meq/L (21.0-32.0); Phosphorus 3.2 mg/dL (2.5-4.9)
--- NOTE | 2018-06-06 12:13 | MH ---
cc: Rene Sen MD DATE OF ADMISSION: 05/30/2018 SUBJECTIVE: Ruth is seen in room 1516 this morning. She continues to do well and is recovering well from her spinal surgery. She is happy with her pain control and progress in general. She is concerned about the need for permanent nephrostomies, but otherwise, she is doing well and looking forward to going home for [place]. PHYSICAL EXAMINATION: Pallor present. Otherwise, no apparent distress. Spinal surgical scar without evidence of infection or bleeding. Bilateral nephrostomies draining clear vladislav-colored urine. Paraspinal drain with minimal pink discharge. No active bleeding. ASSESSMENT AND PLAN: Reviewed labs and discussed with the patient that her creatinine is improving and we will continue current care per nephrology and further workup of hydronephrosis per urology and nephrology together. I will see her in followup. I answered all questions from the patient. She was very appreciative. MD BHARATH Lopez/isaac , 11:52 AM , 11:58 AM
--- NOTE | 2018-06-06 12:35 | P.PNIM ---
Subjective Interval history: Follow-up vertebral fracture L2 compression fracture, bladder cancer, hydronephrosis.. She is sitting in her bed and getting ready to work with physical therapy. No acute concerns. No fever or chills. Bilateral nephrostomy tubes are in place and draining. Physical Exam Vital signs: Last Vital Signs Temp 98.7 F 06/06/18 07:35 Pulse 72 06/06/18 07:35 Resp 18 06/06/18 07:35 BP 141/86 H 06/06/18 07:35 Pulse Ox 99 06/06/18 07:35 Intake & Output 06/04/18 06/05/18 06/06/18 06/07/18 06:59 06:59 06:59 06:59 Intake Total 5500 / 5500 3000 / 3000 2000 / 2000 1000 / 1000 Output Total 3470 / 3470 2795 / 2795 1871 / 1871 Balance 2029 / 2029 205 / 205 129 / 129 1000 / 1000 Weight 95 kg 92.4 kg Narrative: GENERAL: Alert and oriented SKIN: Warm and dry. NECK: Supple, trachea midline. No JVD. CARDIOVASCULAR: Regular rate and rhythm without murmurs, gallops, or rubs. RESPIRATORY: Breath sounds equal bilaterally. No accessory muscle use. GASTROINTESTINAL: Abdomen soft, non-tender, nondistended. GENITOURINARY: Bilateral nephrostomy tubes with light yellow urine MUSCULOSKELETAL: No cyanosis, or edema. Back brace on. BACK: SUDHA drain in place. 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 Sen, hydronephrosis s/p bilateral stent placement by Dr. Hannah, hypertension, and intermittent GERD who presented to the emergency room complaining of back pain and outpatient MRI demonstrating compression fracture. Bladder cancer with possible metastasis to spinal column Pathologic compression fracture, L2 Myeloma vs Metastatic Disease -MRI at [facility] showed interval increase in size of enhancing destructive metastasis centered within the posterior L2 -Dexamethasone 2 mg IV every 6 hours -Percocet as needed for pain with morphine IV for breakthrough pain -MRI lumbar spine 06/01/18: Large lobulated lesion on the side of L2 , tumor associated mild narrowing of L1-L2 and L2-L3 -Neurosurgeon Dr. Ortiz performed ORIF of L2, L2 laminectomy on 06/03/2018. Bladder Cancer Bilateral hydronephrosis 5 mm calculus and right renal pelvis Bilateral ureteral stents -follows with Dr. Sen at [facility] - treated with chemo and radiation x 1 treatment -Oncology consult appreciated, Dr. Sen: Recommended to follow-up with [facility] for evaluation and possible clinical trial treatment -Status post bilateral nephrostomy tube placement by interventional radiology on 06/02/18 -Discussed with IR who told us that Urology will determine regarding nephrostomy tubes and when to discontinue. -Patient will likely need palliative chemo. Acute on chronic renal insufficiency Hypokalemia - resolved. -Creatinine improved to 1.14 --> 0.98 Hypertension -Clonidine PRN. Thrombocytopenia- likely secondary to recent chemotherapy -Resolved. Currently around 306K. Full code. SCDs. Progress Note: Quality VTE Deep Vein Thrombosis/Pulmonary Embolism Present on Admission: No
--- NOTE | 2018-06-06 12:39 | P.PNNS ---
Subjective Interval history: doing well, surgical pain controlled, preoperative pain improving Physical Exam Vital signs: Vital Signs 06/05/18 16:00 06/05/18 20:00 06/06/18 00:00 Temperature 97.9 F 98.2 F 98.1 F Pulse Rate 79 79 56 L Respiratory Rate 19 18 18 Blood Pressure 141/64 H 130/60 131/69 Pulse Oximetry 97 96 98 06/06/18 04:00 06/06/18 07:00 06/06/18 07:35 Temperature 98.1 F 98.7 F Pulse Rate 75 72 Respiratory Rate 07 06 18 Blood Pressure 137/71 141/86 H Pulse Oximetry 96 99 Intake & Output 06/05/18 06/06/18 06/06/18 18:59 06:59 18:59 Intake Total 1000 / 1000 1000 / 1000 1000 / 1000 Output Total 711 / 711 1160 / 1160 Balance 289 / 289 -160 / -160 1000 / 1000 Intake: IV 1000 / 1000 1000 / 1000 1000 / 1000 NS Inj 1,000 ML @ 100 mls/hr IV 1000 / 1000 1000 / 1000 1000 / 1000 .CONT .Q10H [facility] Rx#:[id number] Output: Stool Wound Drainage 710 / 710 1160 / 1160 # 1 Lower Back SUDHA Drain Left Nephrostomy Tube 450 / 450 550 / 550 Right Nephrostomy Tube 250 / 250 600 / 600 Other: Date of Last Bowel Movement 06/05/18 06/05/18 Narrative: awake, alert NAD SUDHA drain in place with very minimal drain output 10 cc overnight moves lower extremities with good strength - Urinary Catheter Management Indwelling Urethral Catheter Cath placed during this visit: no Assessment and Plan - Plan 52 y/o female with pathological L2 fracture, suspected spine mets history of bladder CA s/p Open reduction and internal fixation of pathological L2 fracture, L2 laminectomy resection of metastatic neoplasm, L1-L3 segmental instrumental fixation using transpedicular screws and rods, L1-2, L2-3 posterolateral fusion using autologous bone with demineralized bone matrix, microsurgical dissection 06/03/18 neuro stable post op pain controlled cont therapy and rehab dc lumbar SUDHA drain TLSO brace when out of bed clear to dc to rehab from [facility] standpoint f/u final pathology f/u oncology for further treatment
--- NOTE | 2018-06-06 14:54 | P.PNNP ---
Subjective Interval history: Reports that she is feeling better. Pain reported at nephrostomy site. No shortness of breath, chest pain, nausea, or vomiting. <Jeanie Alatorre - Last Filed: 06/06/18 14:58> Physical Exam Vital signs: Vital Signs 06/05/18 16:00 06/05/18 20:00 06/06/18 00:00 Temperature 97.9 F 98.2 F 98.1 F Pulse Rate 79 79 56 L Respiratory Rate 18 Blood Pressure 141/64 H 130/60 131/69 Pulse Oximetry 97 96 98 06/06/18 04:00 06/06/18 07:00 06/06/18 07:35 Temperature 98.1 F 98.7 F Pulse Rate 75 72 Respiratory Rate 18 18 Blood Pressure 137/71 141/86 H Pulse Oximetry 96 99 06/06/18 11:45 Temperature 98.3 F Pulse Rate 91 H Respiratory Rate 17 Blood Pressure 136/66 Pulse Oximetry 99 Intake & Output 06/05/18 06/06/18 06/06/18 18:59 06:59 18:59 Intake Total 1000 / 1000 1000 / 1000 1000 / 1000 Output Total 711 / 711 1160 / 1160 Balance 289 / 289 -160 / -160 1000 / 1000 Intake: IV 1000 / 1000 1000 / 1000 1000 / 1000 NS Inj 1,000 ML @ 100 mls/hr IV 1000 / 1000 1000 / 1000 1000 / 1000 .CONT .Q10H [facility] Rx#:[id number] Output: Stool Wound Drainage 710 / 710 1160 / 1160 # 1 Lower Back SUDHA Drain Left Nephrostomy Tube 450 / 450 550 / 550 Right Nephrostomy Tube 250 / 250 600 / 600 Other: Date of Last Bowel Movement 06/05/18 06/05/18 Narrative: GENERAL: Alert and oriented SKIN: Warm and dry. NECK: Supple, trachea midline. No JVD. CARDIOVASCULAR: Regular rate and rhythm without murmurs, gallops, or rubs. RESPIRATORY: Breath sounds equal bilaterally. No accessory muscle use. GASTROINTESTINAL: Abdomen soft, non-tender, nondistended. GENITOURINARY: Bilateral nephrostomy tubes with light yellow urine MUSCULOSKELETAL: No cyanosis, or edema. BACK: SUDHA drain in place. - Urinary Catheter Management Indwelling Urethral Catheter Cath placed during this visit: no <Jeanie Alatorre - Last Filed: 06/06/18 14:58> Vital signs: Vital Signs 06/06/18 00:00 06/06/18 04:00 06/06/18 07:00 Temperature 98.1 F 98.1 F Pulse Rate 56 L 75 Respiratory Rate 18 18 12 Blood Pressure 131/69 137/71 Pulse Oximetry 98 96 06/06/18 07:35 06/06/18 11:45 06/06/18 15:18 Temperature 98.7 F 98.3 F Pulse Rate 72 91 H Respiratory Rate 18 17 12 Blood Pressure 141/86 H 136/66 Pulse Oximetry 99 99 06/06/18 15:38 06/06/18 20:00 Temperature 98.6 F 98 F Pulse Rate 85 87 Respiratory Rate 18 18 Blood Pressure 156/82 H 134/77 Pulse Oximetry 98 98 Intake & Output 06/06/18 06/06/18 06/07/18 06:59 18:59 06:59 Intake Total 1000 / 1000 1999 Output Total 1160 / 1160 1335 / 1335 Balance -160 / -160 665 / 665 Intake: IV 1000 / 1000 1999 NS Inj 1,000 ML @ 100 mls/hr IV 1000 / 1000 1999 .CONT .Q10H [facility] Rx#:[id number] Output: Wound Drainage 1160 / 1160 1335 / 1335 # 1 Lower Back SUDHA Drain Left Nephrostomy Tube 550 / 550 650 / 650 Right Nephrostomy Tube 600 / 600 675 / 675 Other: Date of Last Bowel Movement 06/05/18 # Bowel Movements 1 - Urinary Catheter Management Indwelling Urethral Catheter Cath placed during this visit: no <Wagner Daily - Last Filed: 06/06/18 21:22> Assessment and Plan - Assessment (1) Renal insufficiency Code(s): N28.9 - Disorder of kidney and ureter, unspecified Status: Acute Plan: Acute kidney injury with a creatinine on admission of 1.67 RIYA possible AIN secondary to chemotherapy and/or post renal with obstructive uropathy. Renal ultrasound with right with moderate to severe hydronephrosis and left kidney with moderate hydronephrosis. Has been seen by Dr. Hannah in past and has bilateral ureteral stents. Avoid nephrotoxins including IV contrast, NSAIDs, and aminoglycosides. Creatinine is stable improving at 0.98 Bilateral nephrostomy tubes with light yellow urine. Placed 06/02. Draining well. Patient is questioning if nephrostomy tubes will be coming out, please have urology evaluate. (2) Bladder cancer Code(s): C67.9 - Malignant neoplasm of bladder, unspecified Status: Acute Qualifiers: Bladder location: unspecified site Qualified Code(s): C67.9 - Malignant neoplasm of bladder, unspecified Plan: Extensive lytic bone destruction of L2 with soft tissue mass, spinal stenosis and pathologic fracture as above. Metastatic disease from reported history of bladder cancer. - follows with Dr. Sen at [facility] - treated with chemo and radiation treatment (3) Pathologic compression fracture of lumbar vertebra Code(s): M48.56XA - Collapsed vertebra, not elsewhere classified, lumbar region , initial encounter for fracture Status: Acute Qualifiers: Encounter type: initial encounter Qualified Code(s): M48.56XA - Collapsed vertebra, not elsewhere classified, lumbar region, initial encounter for fracture Plan: Neurosurgical consulted, s/p Open reduction and internal fixation of pathological L2 fracture L3 on 06/03 (4) Hypertension Code(s): I10 - Essential (primary) hypertension Status: Acute Plan: Well controlled. On metoprolol and has PRN clonidine will monitor. <Jeanie Alatorre - Last Filed: 06/06/18 14:58> - Assessment (1) Renal insufficiency Code(s): N28.9 - Disorder of kidney and ureter, unspecified Status: Acute Plan: Patient seen and examined, agree with above. Creatinine is better with Nephrostomy, Urology following, to follow with them after D/C. (2) Bladder cancer Code(s): C67.9 - Malignant neoplasm of bladder, unspecified Status: Acute Qualifiers: Bladder location: unspecified site Qualified Code(s): C67.9 - Malignant neoplasm of bladder, unspecified (3) Pathologic compression fracture of lumbar vertebra Code(s): M48.56XA - Collapsed vertebra, not elsewhere classified, lumbar region , initial encounter for fracture Status: Acute Qualifiers: Encounter type: initial encounter Qualified Code(s): M48.56XA - Collapsed vertebra, not elsewhere classified, lumbar region, initial encounter for fracture (4) Hypertension Code(s): I10 - Essential (primary) hypertension Status: Acute <Wagner Daily - Last Filed: 06/06/18 21:22>
[2018-06-07] MEDS: Sod Chloride 0.9% Inj 1,000 ML IV.CONT SCH (05:30)
[2018-06-07] MEDS: Ciprofloxacin 500 MG Tablet PO SCH (06:27)
[2018-06-07] MEDS: Senna/Docusate Sodium 8.6/50 MG Tablet PO SCH (08:42)
[2018-06-07] MEDS: Famotidine PF Inj 20 MG/2 ML Vial IV.PUSH SCH ×2 (08:42→09:01)
--- NOTE | 2018-06-07 09:33 | P.DCO ---
Physical Therapy Order: Evaluate and treat, Improve ambulation and Strength and gait training Home Health Nursing Order: Medical education, Signs/symptoms of disease process, Medication education-adverse effect and Nursing assessment with vital signs Case Management Consult Case Management Consult-Home Health: Yes I have seen patient Shannan Ayala on 06/07/18. My clinical findings support the need for the requested home health care services because: Limited mobility due to disease progression, Patient has SOB, Limited ability to care for self, Need for psychosocial assistance, Impaired cognition/judgement , High risk of falls and Infection with risk of complications I certify that my clinical findings support that this patient is homebound because: Post-op weakness, Unsteady gait/balance, Unsafe to leave home unassisted, Need for psychosocial assistance and Unable to use public transportation
--- NOTE | 2018-06-07 09:49 | P.PNNP ---
Subjective Interval history: Seen in morning plan for discharge home today. Denies any shortness of breath, chest pain, nausea, or vomiting. <Jeanie Alatorre - Last Filed: 06/07/18 15:20> Physical Exam Vital signs: Vital Signs 06/06/18 11:45 06/06/18 15:18 06/06/18 15:38 Temperature 98.3 F 98.6 F Pulse Rate 91 H 85 Respiratory Rate 17 12 18 Blood Pressure 136/66 156/82 H Pulse Oximetry 99 98 06/06/18 20:00 06/07/18 00:00 06/07/18 03:21 Temperature 98 F 98.4 F Pulse Rate 87 62 Respiratory Rate 18 16 16 Blood Pressure 134/77 143/80 H Pulse Oximetry 98 99 06/07/18 04:00 06/07/18 08:00 Temperature 98.2 F 97.9 F Pulse Rate 60 60 Respiratory Rate 18 20 Blood Pressure 147/73 H 140/67 Pulse Oximetry 98 98 Intake & Output 06/06/18 06/07/18 06/07/18 18:59 06:59 18:59 Intake Total 1999 1000 / 1000 Output Total 1335 / 1335 1875 / 1875 Balance 665 / 665 -875 / -875 Weight 92.6 kg Intake: IV 1999 1000 / 1000 NS Inj 1,000 ML @ 100 mls/hr IV 1999 1000 / 1000 .CONT .Q10H [facility] Rx#:[id number] Output: Wound Drainage 1335 / 1335 1875 / 1875 # 1 Lower Back SUDHA Drain Left Nephrostomy Tube 650 / 650 1175 / 1175 Right Nephrostomy Tube 675 / 675 700 / 700 Other: # Bowel Movements 1 Narrative: GENERAL: alert and oriented. SKIN: Warm and dry. NECK: Supple, trachea midline. No JVD CARDIOVASCULAR: Regular rate and rhythm without murmurs, gallops, or rubs. RESPIRATORY: Breath sounds equal bilaterally. No accessory muscle use. GASTROINTESTINAL: Abdomen soft, non-tender, nondistended. GENITOURINARY: Bilateral nephrostomy tubes with light yellow urine. MUSCULOSKELETAL: No cyanosis, or edema. - Urinary Catheter Management Indwelling Urethral Catheter Cath placed during this visit: no <Jeanie Alatorre - Last Filed: 06/07/18 15:20> Vital signs: Vital Signs 06/07/18 00:00 06/07/18 03:21 06/07/18 04:00 Temperature 98.4 F 98.2 F Pulse Rate 62 60 Respiratory Rate 16 16 18 Blood Pressure 143/80 H 147/73 H Pulse Oximetry 99 98 06/07/18 08:00 Temperature 97.9 F Pulse Rate 60 Respiratory Rate 20 Blood Pressure 140/67 Pulse Oximetry 98 Intake & Output 06/07/18 06/07/18 06/08/18 06:59 18:59 06:59 Intake Total 1000 / 1000 Output Total 1875 / 1875 Balance -875 / -875 Weight 92.6 kg Intake: IV 1000 / 1000 NS Inj 1,000 ML @ 100 mls/hr IV 1000 / 1000 .CONT .Q10H [facility] Rx#:[id number] Output: Wound Drainage 1874 / 1875 Left Nephrostomy Tube 1175 / 1175 Right Nephrostomy Tube 700 / 700 Other: Date of Last Bowel Movement 06/07/18 - Urinary Catheter Management Indwelling Urethral Catheter Cath placed during this visit: no <Ajay Daily Q - Last Filed: 06/07/18 21:32> Assessment and Plan - Assessment (1) Renal insufficiency Code(s): N28.9 - Disorder of kidney and ureter, unspecified Status: Acute Plan: Acute kidney injury with a creatinine on admission of 1.67 RIYA possible AIN secondary to chemotherapy and/or post renal with obstructive uropathy. Renal ultrasound with right with moderate to severe hydronephrosis and left kidney with moderate hydronephrosis. Has been seen by Dr. Hannah in past and has bilateral ureteral stents. Bilateral nephrostomy tubes with light yellow urine with improvement in creatinine after placement. Placed 06/02. Draining well. Will be following up with Dr. Hannah outpatient. (2) Bladder cancer Code(s): C67.9 - Malignant neoplasm of bladder, unspecified Status: Acute Plan: Extensive lytic bone destruction of L2 with soft tissue mass, spinal stenosis and pathologic fracture as above. Metastatic disease from reported history of bladder cancer. - follows with Dr. Sen at [facility] - treated with chemo and radiation treatment (3) Pathologic compression fracture of lumbar vertebra Code(s): M48.56XA - Collapsed vertebra, not elsewhere classified, lumbar region , initial encounter for fracture Status: Acute Plan: Neurosurgical consulted, s/p Open reduction and internal fixation of pathological L2 fracture L3 on 06/03 (4) Hypertension Code(s): I10 - Essential (primary) hypertension Status: Acute Plan: Well controlled. On metoprolol and has PRN clonidine will monitor. <Jeanie Alatorre - Last Filed: 06/07/18 15:20> - Assessment (1) Renal insufficiency Code(s): N28.9 - Disorder of kidney and ureter, unspecified Status: Acute Plan: Patient with obstructive uropathy and now with bilateral Nephrostomy. Creatinine normalized. For discharge, to follow with Dr. Hannah. (2) Bladder cancer Code(s): C67.9 - Malignant neoplasm of bladder, unspecified Status: Acute Qualifiers: Bladder location: unspecified site Qualified Code(s): C67.9 - Malignant neoplasm of bladder, unspecified (3) Pathologic compression fracture of lumbar vertebra Code(s): M48.56XA - Collapsed vertebra, not elsewhere classified, lumbar region , initial encounter for fracture Status: Acute Qualifiers: Encounter type: initial encounter Qualified Code(s): M48.56XA - Collapsed vertebra, not elsewhere classified, lumbar region, initial encounter for fracture (4) Hypertension Code(s): I10 - Essential (primary) hypertension Status: Acute <Wagnre Daily - Last Filed: 06/07/18 21:32>
--- NOTE | 2018-06-07 14:02 | P.PNONC ---
Subjective Interval history: Patient ambulating in room with walker, she is being discharged at this time. Transport is present with wheelchair. Discussed follow-up appointment, the patient will call in [facility] to arrange a 1-2-week follow-up with Dr. Goss. Objective Vital Signs/Intake & Output: Vital Signs 06/06/18 15:18 06/06/18 15:38 06/06/18 20:00 Temperature 98.6 F 98 F Pulse Rate 85 87 Respiratory Rate 06 07 18 Blood Pressure 156/82 H 134/77 Pulse Oximetry 98 98 06/07/18 00:00 06/07/18 03:21 06/07/18 04:00 Temperature 98.4 F 98.2 F Pulse Rate 62 60 Respiratory Rate 18 Blood Pressure 143/80 H 147/73 H Pulse Oximetry 99 98 06/07/18 08:00 Temperature 97.9 F Pulse Rate 60 Respiratory Rate 20 Blood Pressure 140/67 Pulse Oximetry 98 Intake & Output 06/06/18 06/07/18 06/07/18 18:59 06:59 18:59 Intake Total 1999 1000 / 1000 Output Total 1335 / 1335 1875 / 1875 Balance 665 / 665 -875 / -875 Weight 92.6 kg Intake: IV 1999 1000 / 1000 NS Inj 1,000 ML @ 100 mls/hr IV 1999 1000 / 1000 .CONT .Q10H AMAIRANI Rx#:[id number] Output: Wound Drainage 1335 / 1335 1875 / 1875 # 1 Lower Back SUDHA Drain Left Nephrostomy Tube 650 / 650 1175 / 1175 Right Nephrostomy Tube 675 / 675 700 / 700 Other: Date of Last Bowel Movement 06/07/18 # Bowel Movements 1 Result Diagrams: 06/04/18 12:20 06/06/18 07:40 Objective Remarks: GENERAL: Well-nourished, well-developed female patient, no acute distress. SKIN: Warm and dry. HEAD: Normocephalic. EYES: No scleral icterus. No injection or drainage. NECK: Supple, trachea midline. CARDIOVASCULAR: +S1/S2 RESPIRATORY: No accessory muscle use. GASTROINTESTINAL: Bilateral nephrostomy tubes draining clear yellow urine. EXTREMITIES: No cyanosis, or edema. MUSCULOSKELETAL: Adequate muscle tone. NEUROLOGICAL: No obvious focal deficit. Awake, alert, and oriented x3. PSYCHIATRIC: Appropriate mood and affect; insight and judgment normal. Assessment/Plan - Plan 52-year-old female who was diagnosed approximately 3 months ago with metastatic bladder cancer who received 1 dose of chemotherapy with MVAC. She was receiving radiation to a metastatic lesion in the L2 spine. She developed increasing pain and an MRI done just prior to admission showed increasing metastatic disease to the L2 without pathological fracture. She was admitted to the hospital for further surgical intervention. She was found to have bilateral hydronephrosis incidentally on imaging and bilateral nephrostomy tubes were placed. Recommendations: 1. Status post open reduction internal fixation of pathologic L2 fracture. Patient ambulating in the room with walker. 2. Bilateral nephrostomy tubes, draining clear yellow urine. 3. Patient currently being discharged home. She will call the [place] office to schedule a follow-up in 1-2 weeks. - Attending Statement Pt doing well from post surgical pain. She is very concerned, anxious and emotional about going home with nephrostomies in place. 15 min d/w pt. Also d/w with Dr. Deng and RN. D/c plans per IM and urology. Will f/u in office as out pt.
--- NOTE | 2018-06-07 16:50 | P.DS ---
DS: Providers Date of admission: 05/30/18 19:20 Primary care physician: UNKNOWN Consults: 05/30/18 19:00 Consult to Neurosurgery Routine Consulting Provider: Chris Ortiz Reason for Consultation: lumbar compression pathologic fracture Notified:: Service Spoke with:: yris Date Notified:: 05/30/18 Time Notified:: 21:00 Ordering Provider: RAI 05/31/18 01:52 Consult to Urology Routine Consulting Provider: Sean Bowser Reason for Consultation: bilateral hydronephrosis despite bilateral ureteral stents Notified:: Service Spoke with:: nina Date Notified:: 05/31/18 Time Notified:: 03:10 Ordering Provider: ARAVIND 06/01/18 07:59 Consult to Oncology Routine Consulting Provider: Rene Sen Preferred Piece Meat Trimmer:: Rene Sen Patient known to:: Rene Sen Reason for Consultation: bladder cancer possible mets to spine/L2 comp fx Notified:: Service Spoke with:: Bong Date Notified:: 06/01/18 Time Notified:: 08:05 Ordering Provider: SURY 06/01/18 08:45 Consult to Orthopedic Surgery Routine Consulting Provider: Josie Sanchez Reason for Consultation: Oncologist discussed with Dr. Sanchez regarding bladder cancer related metastatic (pathologic) fracture of L2. Thank you. Notified:: Office Spoke with:: Noemi Date Notified:: 06/01/18 Time Notified:: 08:50 Ordering Provider: ELGIN 06/02/18 08:46 Consult to Nephrology Routine Consulting Provider: Wagner Daily Does the patient have a Defensive Fire Control Systems Operator who follows them?: No Preferred Nephrology Piece Meat Trimmer:: Ajay Daily Reason for Consultation: Oncologist requested a nephrology evaluation with regards to elevation in Creatinine. Thank you. Notified:: Service Spoke with:: CHIQUIS Date Notified:: 06/02/18 Time Notified:: 08:51 Ordering Provider: ELGIN 06/03/18 21:18 Consult to Neurology Routine Consulting Provider: Luis Antonio Murguia Reason for Consultation: Assist with critical care post op management Notified:: Service Spoke with:: Ross Date Notified:: 06/03/18 Time Notified:: 21:34 Ordering Provider: PONCHO Brief History from admission: Mrs. Fridenberger is a 52 year-old female with a history of left parietal CVA (), bladder cancer diagnosed in July 2017 and followed at [facility] by Dr. Sen, hydronephrosis s/p bilateral stent placement by Dr. Hannah, hypertension, and intermittent GERD who presented to the emergency room complaining of back pain and outpatient MRI demonstrating compression fracture. The patient is seen in her hospital room reports having back pain of 3-4 out of 10 radiating from her back down her anterior right thigh. She states that her pain is worse with immobility. Pain is relieved with Decadron. However, she notices these to emotional lability with Decadron 4 mg and she refuses to take more than 2 mg of decadron. She also complains of reflux with the sensation of feeling like something is "stuck" in the left side of her throat. She reports that this symptom has been present only for about 12 hours. She also complains that a couple of days ago, she had muscle spasm sensation in her legs that seemed to radiate up her chest wall and was relieved with relaxation. She denies any recent fever, chills, or shortness of breath. DS: Diagnosis Discharge Diagnosis (1) Renal insufficiency: Status: Acute (2) Bladder cancer: Status: Acute (3) Pathologic compression fracture of lumbar vertebra: Status: Acute (4) Hypertension: Status: Acute DS: Summary This is a 52 years-old female with a history of left parietal CVA (10/06), bladder cancer diagnosed in July 2017 and followed at [facility] by Dr. Sen, hydronephrosis s/p bilateral stent placement by Dr. Hannah, hypertension, and intermittent GERD who presented to the emergency room complaining of back pain and outpatient MRI demonstrating compression fracture. 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 Continue p.o. dexamethasone upon discharge. -Percocet as needed for pain with morphine IV for breakthrough pain -MRI lumbar spine 06/01/18: Large lobulated lesion on the side of L2 , tumor associated mild narrowing of L1-L2 and L2-L3 -Neurosurgeon Dr. Ortiz performed ORIF of L2, L2 laminectomy on 06/03/2018. Bladder Cancer Bilateral hydronephrosis 5 mm calculus and right renal pelvis Bilateral ureteral stents -follows with Dr. Sen at [facility] - treated with chemo and radiation x 1 treatment -Oncology consult appreciated, Dr. Sen: Recommended to follow-up with [facility] for evaluation and possible clinical trial treatment -Status post bilateral nephrostomy tube placement by interventional radiology on 06/02/18 -Patient to continue to follow up with urology in the outpatient setting with regards to hydronephrosis and nephrostomy tubes. -Patient will likely need palliative chemo. Acute on chronic renal insufficiency Hypokalemia - resolved. -Creatinine improved to 1.14 --> 0.98 Hypertension -Clonidine PRN. Thrombocytopenia- likely secondary to recent chemotherapy -Resolved. Currently around 306K. Overall, patient is doing well. I discussed with hematology oncologist, patient 's outpatient urologist and neurosurgery prior to discharge. Urologist Dr. Hannah recommends outpatient follow-up. She is supposed to follow-up with urology on 06/15/2018. Patient will continue to maintain bilateral nephrostomy tubes with bags. We will arrange home health to help her. Patient already has pain medications at home. No new pain prescriptions were given. Patient is hemodynamically stable and subsequently we discharge patient home with home health. She will follow-up with oncology with regards to chemotherapy. Time Spent with Patient Total time spent providing and/or coordinating discharge services: Less than 30 minutes Quality: VTE Deep Vein Thrombosis/Pulmonary Embolism Present on Admission: No Results Pending studies at discharge: Pending at discharge 06/03/18 07:40 Surgical [PTH] Routine Impressions ITS Impressions Lumbar Spine CT 05/30/18 17:06 CONCLUSION: 1. Extensive lytic bone destruction of L2 with soft tissue mass, spinal stenosis and pathologic fracture as above. Primary differential diagnosis is myeloma versus metastatic disease from reported history of bladder cancer. 2. Moderate degenerative changes as above. Abdomen/Bladder Ultrasound 05/31/18 00:00 CONCLUSION: 1. Bilateral hydronephrosis, greater on the right. 2. Distended urinary bladder with wall thickening. Lumbar Spine MRI 06/01/18 00:00 CONCLUSION: 1. Large, lobulated and expansile lesion of the right side of the L2 vertebral body and posterior elements as described. There is reactive appearing enhancement adjacent epidural space and soft tissues. The right side of the L2 vertebral body has mild loss of height consistent with a pathologic fracture. Tumor-associated mild narrowing of the right lateral recess and mild right foraminal stenosis at both L1/L2 and L2/L3. 2. Degenerative changes at L4/L5 and L5/S1 as described. 3. Bilateral hydronephrosis despite presence of ureteral stents. Nephrostomy 06/02/18 00:00 CONCLUSION: 1. Uncomplicated nephrostomy tube placement as above. Chest X-Ray 06/03/18 00:00 CONCLUSION: No acute cardiopulmonary disease. Discharge Plan Discharge Disposition Patient Disposition: W/Home Health Service Discharge Condition Condition: Stable Discharge Order Discharge Orders: Discharge Order (Routine); Ordered 06/07/18 Ordered By: Carmella Morocho Discharge Details Anticipated Discharge Date: 06/07/18 Physicians Team Primary Care Provider: UNKNOWN, Attending Provider: Carmella Morocho Other Providers: Chris Ortiz ; Sean Bowser ; Josie Sanchez ; Rene Sen ; Wagner Daily ; Luis Antonio Murguia Rxs /Orders / Referrals /Forms Prescriptions: Continue famotidine 20 mg Tablet 20 mg PO DAILY RF: 0 oxycodone-acetaminophen 10-325 mg Tablet 1 tab PO BID RF: 0 dexamethasone 4 mg Tablet 4 mg PO Q12H RF: 0 Discontinued ciprofloxacin HCl 500 mg Tablet 500 mg PO BID RF: 0 Ambulatory Orders / Order Sets / DME: Walker With Front Wheels (1 each) (Routine) Location: Determined by Patient Ordered By: Carmella Morocho Referrals: Chris Ortiz MD [NEUROSURGERY] - See Instructions (within 7-10 days. ) UNKNOWN, [Primary Care Provider] - See Instructions (Follow up with Dr. Hannah (Urology) on 06/15/2018. They will call regarding this appointment. ) Discharge Instructions Patient Printed Instructions: Nephrostomy Tube Care (DC), Lumbar Brace (DC) Post Discharge Care Plan Care Plan Goals: Your Health Problems: Goals to Promote Your Health: * To prevent worsening of your condition * To maintain your health at the optimal level Directions to Meet Your Goals: * Take your medications as prescribed * Follow your dietary instruction * Follow activity as directed * Keep your appointments as scheduled * Take your immunizations and boosters as scheduled * If your symptoms worsen call your PCP * If no PCP go to Urgent Care or Emergency Room Smoking is dangerous to your health. Avoid second hand smoke. You may reach the 24-hour crisis hotline for domestic abuse at . Status ED Status: Left Department Discharge Information Discharge Date/Time: 06/07/18 13:56
--- NOTE | 2018-06-08 16:01 | XR ---
EXAM DATE: 06/03/2018 8:30 PM EST AGE/SEX: 52 years / Female INDICATIONS: L1-L2, L2-L3 fusion with mass removal CLINICAL DATA: This is the patient's initial encounter. Patient reports that signs and symptoms have been present for 1 day and indicates a pain score of Nonresponsive. MEDICAL/SURGICAL HISTORY: Non-responsive. Non-responsive. [place] [facility] [place]/30/2018. . FINDINGS: Posterior cervical fusion hardware is noted from L1 through L3. CONCLUSION: Posterior cervical fusion hardware is noted from L1 through L3. Electronically signed by: Brennan Ortiz MD Board Certified Radiologist 06/08/2018 3:59 PM EST
== END 2018-06-07 13:56 | disposition home health service (06) ==
LOC: NEPC 14:54 → NEDA 19:20 → N05 21:25 → N03 06-03 22:32 → N05 06-04 15:38
PROVIDERS: ADMIT Hospitalist; ATTEND Hospitalist
DX: Z82.49 Family history of ischemic heart disease and other diseases of the circulatory system; Z86.73 Personal history of transient ischemic attack (TIA), and cerebral infarction without residual deficits; K21.9 Gastro-esophageal reflux disease without esophagitis; M48.061 Spinal stenosis, lumbar region without neurogenic claudication; N18.9 Chronic kidney disease, unspecified; Z80.0 Family history of malignant neoplasm of digestive organs; M62.838 Other muscle spasm; I12.9 Hypertensive chronic kidney disease with stage 1 through stage 4 chronic kidney disease, or unspecified chronic kidney disease; R31.9 Hematuria, unspecified; N13.6 Pyonephrosis; T45.1X5A Adverse effect of antineoplastic and immunosuppressive drugs, initial encounter; C67.9 Malignant neoplasm of bladder, unspecified; M84.58XA Pathological fracture in neoplastic disease, other specified site, initial encounter for fracture; N17.9 Acute kidney failure, unspecified; Z90.49 Acquired absence of other specified parts of digestive tract; D69.59 Other secondary thrombocytopenia; C79.51 Secondary malignant neoplasm of bone; E87.6 Hypokalemia